=== PATIENT | female | born 1960 | race Caucasian/White ===

== ENCOUNTER 2018-06-06 16:20 | Outpatient (REF) | payer BC, SELFPAY ==
[2018-06-06 21:50] LABS: COMMENT (LAB VIEW ONLY) 25.53 mg/dL; Microalb ug/mg Crea 6.3 ug/mg Cr
== END 2018-06-06 16:40 ==
LOC: NCHCN 16:20
PROVIDERS: PCP Internal Medicine; Visit Provider Internal Medicine
DX: E11.3299 Type 2 diabetes mellitus with mild nonproliferative diabetic retinopathy without macular edema, unspecified eye (principal); E78.5 Hyperlipidemia, unspecified
CPT/HCPCS: 82043; 82570

== ENCOUNTER 2018-06-14 09:58 | Outpatient (REF) | payer BC, SELFPAY ==
[2018-06-15 11:23] LABS: Anion Gap 10.8 mmol/L (3-11); BUN 14 mg/dL (7-18); CO2 28.2 mmol/L (21.0-32.0); CREATININE 0.83 mg/dL (0.55-1.02); Chloride 104 mmol/L (98-107); Glucose 160 mg/dL (70-100); Potassium 4.1 mmol/L (3.5-5.1); Sodium 143 mmol/L (136-145)
[2018-06-15 17:23] LABS: HDL Cholesterol 51 mg/dL (40-60); LDL CHOLESTEROL 69 mg/dL (<100); Triglyceride 249 mg/dL (30-150)
[2018-06-15 17:39] LABS: Cholesterol 156 mg/dL (50-200)
== END 2018-06-14 10:18 ==
LOC: NCHCN 09:58
PROVIDERS: PCP Internal Medicine; Visit Provider Internal Medicine
DX: E11.3299 Type 2 diabetes mellitus with mild nonproliferative diabetic retinopathy without macular edema, unspecified eye (principal); E78.5 Hyperlipidemia, unspecified
CPT/HCPCS: 80048; 80061; 83721

== ENCOUNTER 2019-05-15 12:35 | Outpatient (REF) | payer BC, SELFPAY ==
[2019-05-15 22:50] LABS: COMMENT (LAB VIEW ONLY) 67.62 mg/dL; Microalb ug/mg Crea 4.4 ug/mg Cr
== END 2019-05-15 12:55 ==
LOC: NCHCN 12:35
PROVIDERS: PCP Internal Medicine; Visit Provider Internal Medicine
DX: E11.3299 Type 2 diabetes mellitus with mild nonproliferative diabetic retinopathy without macular edema, unspecified eye (principal)
CPT/HCPCS: 82043; 82570

== ENCOUNTER 2019-06-20 08:44 | Outpatient (REF) | payer BC, SELFPAY ==
[2019-06-20 23:19] LABS: ALT 33 U/L (14-59); AST 20 U/L (15-37); Albumin 3.7 g/dL (3.4-5.0); Alkaline Phosphatase 56 U/L (46-116); Anion Gap 11.3 mmol/L (3-11); BUN 13 mg/dL (7-18); Bilirubin, Total 0.5 mg/dL (0.2-1.0); CO2 27.7 mmol/L (21.0-32.0); CREATININE 0.64 mg/dL (0.55-1.02); Calcium 8.8 mg/dL (8.5-10.1); Calculated LDL 57 mg/dL (<100); Chloride 104 mmol/L (98-107); Cholesterol 146 mg/dL (<200); Glucose 140 mg/dL (74-106); HDL Cholesterol 48 mg/dL (40-60); Potassium 4.1 mmol/L (3.5-5.1); Sodium 143 mmol/L (136-145); Total Protein 6.6 g/dL (6.4-8.2); Triglyceride 207 mg/dL (<150)
== END 2019-06-20 09:04 ==
LOC: NCHCN 08:44
PROVIDERS: PCP Internal Medicine; Visit Provider Internal Medicine
DX: E78.5 Hyperlipidemia, unspecified (principal); E11.3299 Type 2 diabetes mellitus with mild nonproliferative diabetic retinopathy without macular edema, unspecified eye
CPT/HCPCS: 80053; 80061

== ENCOUNTER 2020-08-05 07:43 | Outpatient (REF) | payer BC, SELFPAY ==
[2020-08-05 14:15] LABS: BUN 13 mg/dL (7-18); CREATININE 0.7 mg/dL (0.55-1.02); Calcium 8.7 mg/dL (8.5-10.1); Calculated LDL 57 mg/dL (<100); Chloride 104 mmol/L (98-107); Cholesterol 161 mg/dL (<200); Glucose 149 mg/dL (74-106); HDL Cholesterol 46 mg/dL (40-60); Potassium 4.3 mmol/L (3.5-5.1); Sodium 142 mmol/L (136-145); Triglyceride 292 mg/dL (<150)
[2020-08-05 14:23] LABS: Hemoglobin A1C 7.6 % (<5.7)
== END 2020-08-05 07:44 | disposition home or self-care (01) ==
LOC: NCHCN 07:43
PROVIDERS: PCP Internal Medicine; Visit Provider Internal Medicine
DX: E11.3293 Type 2 diabetes mellitus with mild nonproliferative diabetic retinopathy without macular edema, bilateral (principal); E78.5 Hyperlipidemia, unspecified; I10 Essential (primary) hypertension
CPT/HCPCS: 80048; 80061; 83036

== ENCOUNTER 2020-08-14 16:37 | Outpatient (REF) | payer BC, SELFPAY ==
[2020-08-14 22:56] LABS: COMMENT (LAB VIEW ONLY) 102.38 mg/dL; Microalb ug/mg Crea 3.4 ug/mg Cr
== END 2020-08-14 16:38 | disposition home or self-care (01) ==
LOC: NCHCN 16:37
PROVIDERS: PCP Internal Medicine; Visit Provider Internal Medicine
DX: E11.3293 Type 2 diabetes mellitus with mild nonproliferative diabetic retinopathy without macular edema, bilateral (principal)
CPT/HCPCS: 82043; 82570

== ENCOUNTER 2021-06-09 13:26 | Outpatient (REF) | payer BC, SELFPAY ==
[2021-06-09 15:21] LABS: BUN 11 mg/dL (7-18); CREATININE 0.7 mg/dL (0.55-1.02); Calcium 9.1 mg/dL (8.5-10.1); Calculated LDL 64 mg/dL (<100); Chloride 102 mmol/L (98-107); Cholesterol 162 mg/dL (<200); Glucose 168 mg/dL (74-106); HDL Cholesterol 53 mg/dL (40-60); Hemoglobin A1C 6.3 % (<5.7); Sodium 139 mmol/L (136-145); Triglyceride 227 mg/dL (<150)
[2021-06-09 15:26] LABS: COMMENT (LAB VIEW ONLY) < 13.00 mg/dL
== END 2021-06-09 13:27 | disposition home or self-care (01) ==
LOC: NCHCN 13:26
PROVIDERS: PCP Internal Medicine; Visit Provider Internal Medicine
DX: I10 Essential (primary) hypertension (principal); E11.3293 Type 2 diabetes mellitus with mild nonproliferative diabetic retinopathy without macular edema, bilateral
CPT/HCPCS: 80048; 80061; 82043; 82570; 83036

== ENCOUNTER 2022-03-11 17:50 | Outpatient (REF) | payer BC, SELFPAY ==
[2022-03-11 21:46] LABS: COMMENT (LAB VIEW ONLY) 90.39 mg/dL; Microalb ug/mg Crea 4.6 ug/mg Cr
== END 2022-03-11 17:51 | disposition home or self-care (01) ==
LOC: NCHCN 17:50
PROVIDERS: PCP Internal Medicine; Visit Provider Nurse Practitioner Family
DX: E11.3293 Type 2 diabetes mellitus with mild nonproliferative diabetic retinopathy without macular edema, bilateral (principal)
CPT/HCPCS: 82043; 82570

== ENCOUNTER 2022-08-24 11:15 | Outpatient (REF) | payer BC, SELFPAY ==
[2022-08-24 14:40] LABS: Hemoglobin A1C 7.2 % (<5.7)
[2022-08-24 15:08] LABS: ALT 36 U/L (14-59); AST 19 U/L (15-37); Albumin 3.7 g/dL (3.4-5.0); Alkaline Phosphatase 57 U/L (46-116); Anion Gap 9.1 mmol/L (3-11); BUN 14 mg/dL (7-18); Bilirubin, Total 0.4 mg/dL (0.2-1.0); CO2 27.9 mmol/L (21.0-32.0); CREATININE 0.8 mg/dL (0.55-1.02); Calcium 8.8 mg/dL (8.5-10.1); Calculated LDL 69 mg/dL (<100); Chloride 105 mmol/L (98-107); Cholesterol 177 mg/dL (<200); Estimated GFR 83.78 (mL/min/1.73m2); Glucose 118 mg/dL (74-106); HDL Cholesterol 55 mg/dL (40-60); Potassium 3.7 mmol/L (3.5-5.1); Sodium 142 mmol/L (136-145); Total Protein 7.1 g/dL (6.4-8.2); Triglyceride 269 mg/dL (<150)
== END 2022-08-24 11:16 | disposition home or self-care (01) ==
LOC: NCHCN 11:15
PROVIDERS: PCP Internal Medicine; Visit Provider Internal Medicine
DX: E11.3299 Type 2 diabetes mellitus with mild nonproliferative diabetic retinopathy without macular edema, unspecified eye (principal); I10 Essential (primary) hypertension; E78.5 Hyperlipidemia, unspecified
CPT/HCPCS: 80053; 80061; 83036

== ENCOUNTER 2023-03-31 17:26 | Outpatient (REF) | payer BC, SELFPAY ==
[2023-03-31 22:12] LABS: COMMENT (LAB VIEW ONLY) 46.03 mg/dL; Microalb ug/mg Crea 5.4 ug/mg Cr
== END 2023-03-31 17:27 | disposition home or self-care (01) ==
LOC: NCHCN 17:26
PROVIDERS: PCP Internal Medicine; Visit Provider Nurse Practitioner Family
DX: E11.9 Type 2 diabetes mellitus without complications (principal)
CPT/HCPCS: 82043; 82570

== ENCOUNTER 2023-07-12 17:01 | Outpatient (REF) | payer BC, SELFPAY ==
[2023-07-12 22:12] LABS: Hemoglobin A1C 6.8 % (<5.7)
[2023-07-12 22:14] LABS: ALT 34 U/L (14-59); AST 24 U/L (15-37); Albumin 3.8 g/dL (3.4-5.0); Alkaline Phosphatase 57 U/L (46-116); Anion Gap 8.6 mmol/L (3-11); BUN 8 mg/dL (7-18); Bilirubin, Total 0.3 mg/dL (0.2-1.0); CO2 28.4 mmol/L (21.0-32.0); CREATININE 0.7 mg/dL (0.55-1.02); Calcium 10.2 mg/dL (8.5-10.1); Calculated LDL 60 mg/dL (<100); Chloride 106 mmol/L (98-107); Cholesterol 161 mg/dL (<200); Estimated GFR 97.72 (mL/min/1.73m2); Glucose 107 mg/dL (74-106); HDL Cholesterol 52 mg/dL (40-60); Potassium 4.4 mmol/L (3.5-5.1); Sodium 143 mmol/L (136-145); Total Protein 7.5 g/dL (6.4-8.2); Triglyceride 249 mg/dL (<150)
== END 2023-07-12 17:02 | disposition home or self-care (01) ==
LOC: NCHCN 17:01
PROVIDERS: PCP Internal Medicine; Visit Provider Internal Medicine
DX: E11.9 Type 2 diabetes mellitus without complications (principal); I10 Essential (primary) hypertension; E78.5 Hyperlipidemia, unspecified
CPT/HCPCS: 80053; 80061; 83036

== ENCOUNTER 2024-01-07 18:34 | Outpatient (REF) | payer BC, SELFPAY ==
--- OUTSIDE RECORDS SUMMARY | 2024-01-07 18:36 | XMS_ITS ---
Author Organization Unknown Address [address] [place] [address] [phone] Phone Care Team Providers Care Licensed Architect Name Role Phone ROSALINDA Doshi Attending Unavailable BRAULIO Delarosa Primary Unavailable Social History Type Status Start Date End Date Code Code Syst em Smoking History Never smoker (Never Smoked) 442441007 SNOMED CT Sex Female Hospital Discharge Instructions Should you have any questions prior to discharge, please contact a member of your healthcare team. If you have left the hospital and have any questions, please contact your primary care physician. Reason For Referral No Data Found Allergies and Adverse Reactions Allergy Substance Reaction Severity Start Date Concern Status Co de Code System No Known Allergies Active [id number] SNO MED-CT Plan of Treatment MM SCREEN BILAT 12/16/2023 MM SCREEN BILAT 07/02/2022 MM SCREEN BILAT 03/27/2021 Encounters Encounter Diagnosis Start Date Code Code Sys tem Atrophic vaginitis 07/16/2022 [id number] SNOMED-CT Personal Care Team Section Performer Name Performer Role Active Date Inactive Da te
--- OUTSIDE RECORDS SUMMARY | 2024-01-07 18:36 | XMS_ITS ---
Author Organization Unknown Address [address] [place] [address] [phone] Phone Care Team Providers Care Machine Engraver Name Role Phone ROSALINDA Doshi Attending Unavailable BRAULIO Delarosa Primary Unavailable Results MM SCREENING BILAT MAMMO W T ANNEL W CAD - Completed: 07/02/2022 15:25 LOINC: [facility] [place], [place] [address] PACS QUEBRACHO TANNER REPORT Patient Name: TOM DIXON MRN: Sex: : Age: [id number] F [id number] Account: Accession: Admit: StayType: [id number] 07/02/2022 O/P Ordered: Order ID: Submitted: Ordering Provider: 07/02/2022 15:04 [id number] NATY MERRILL Completed: Technologist: Resulted: 07/02/2022 15:25 BMM 07/02/2022 15:47 Study Description: MM SCREENING BILAT MAMMO W VARGAS W CAD Study Reason: Screening TECHNIQUE: 2D digital images with tomosynthesis and CAD COMPARISON: 2013 through 2020 FINDINGS: The breasts are composed of scattered fibroglandular densities, Breast Density category B. No suspicious masses or suspicious microcalcifications are seen. No skin thickening or abnormal axillary lymph nodes are seen. There has been no significant change from prior exams. IMPRESSION: BI-RADS Category 1, Negative mammogram Yearly screening mammography is recommended. Breast Density - Category B, scattered fibroglandular densities. A negative radiographic report should not delay biopsy if a dominant or clinically suspicious mass is present. Up to ten percent of cancers are not identified on mammography. A negative report may reinforce clinical impression. Adenosis and dense breasts may obscure an underlying neoplasm. False positive reports average 6 to 10%. Patient will receive a letter notifying them of these results. Report Digitally Signed by Irina Toussaint on 07/02/2022 03:47 PM EST Social History Type Status Start Date End Date Code Code Syst em Smoking History Never smoker (Never Smoked) [id number] SNOMED CT Sex Female Hospital Discharge Instructions [...] de Code System No Known Allergies Active [id number] SNO MED-CT Plan of Treatment MM SCREEN BILAT 12/16/2023 MM SCREEN BILAT 07/02/2022 MM SCREEN BILAT 03/27/2021 Encounters Encounter Diagnosis Start Date Code Code Sys tem Encounter for screening mamm ogram for malignant neoplasm of breast 07/02/2022 SNOMED-CT Personal Care Team Section Performer Name Performer Role Active Date Inactive Da te
--- OUTSIDE RECORDS SUMMARY | 2024-01-07 18:36 | XMS_ITS | Encounter Summary ---
Author Organization [facility] [place] [address] Care Team Providers Care Middle School Reading Teacher Name Role Phone Unavailable Primary Care Provider Unavailabl e Encounter Details Date Type Department Care Team (Late st Contact Info) Description 12/16/2023 Interpretation Only [facility] in [address] [phone] Valerie Ochoa MD [address] [place], [place] [phone] Social History Tobacco Use Types Packs/Day Years Used Date Smoking Tobacco: Never Assessed Sex and Gender Information Value Date Recorded Sex Assigned at Not on file Gender Identity Not on file Sexual Orientation Not on file documented as of this encounter Plan of Treatment Not on file documented as of this encounter Procedures Procedure Name Priority Date/Time Associated Diagnosis Comments MAMMO SCREENING CAD AND CONOR BILATERAL Routine 12/16/2023 11:20 AM EDT documented in this encounter Results * Mammo Screening Cad and Conor Bilateral (12/16/2023 11:20 AM EDT) PT CLASS O RAD ADMITDTTM [id number] RAD PT RAD INFO [id number]^TAYLER Y^VALERIE^R RAD EXAM DESC MADDSCTO^MM SCREENING BILAT MAMMO W CONOR W CAD^RIS RAD WORKSTATION ID [id number] RAD Anatomical Region Laterality Modality Breast Bilateral Mammography Impressions 12/20/2023 1:22 PM EDT No mammographic evidence of malignancy. Routine screening mammography is recommended. FINAL ASSESSMENT: BI-RADS Category 2: Benign * ??Regular screening mammograms starting at age 40 reduce the risk of from breast cancer. * ??Individuals should discuss the risks and benefits with their provider to determine their preferred breast cancer screening schedule, and at what age screening should stop. * ??Individuals should report any breast changes to a health care provider right away. * ??Some Individuals, because of their family history, a genetic tendency, or other factors, should consider being screened with annual breast MRI as well as with mammograms. * ??Screening mammography may not detect 10-15% of?breast cancers. Thank you for letting us participate in the care of this patient. ??If you are a health care provider and have any questions regarding this report, please contact the number below. ??For patients who have questions please contact the health direct care supervisor that requested your imaging first. ? Electronically signed by: Kelli Henry [facility] ([phone]), at 12/20/2023 1:22 PM Narrative 12/20/2023 1:22 PM EDT EXAMINATION: MM SCREENING BILAT MAMMO W CONOR ??W CAD REASON FOR EXAM: Screening TECHNIQUE: CC and MLO views were obtained of BOTH breasts. 2D and 3D tomosynthesis images were obtained. Computer aided detection was used. COMPARISON: 07/02/2022 and dating back to 11/01/2014 BREAST DENSITY: The breast tissue is heterogeneously dense, which may obscure small masses. FINDINGS: Calcified (likely) or medial cyst within the upper outer quadrant of the right breast, stable and benign in appearance. Stable parenchymal pattern without suspicious microcalcifications, discrete masses, architectural distortion or significant asymmetry. Procedure Note Kelli Henry MD - 12/20/2023 EXAMINATION: MM SCREENING BILAT MAMMO W CONOR W CAD REASON FOR EXAM: Screening TECHNIQUE: CC and MLO views were obtained of BOTH breasts. 2D and 3D tomosynthesis images were obtained. Computer aided detection was used. COMPARISON: 07/02/2022 and dating back to 11/01/2014 BREAST DENSITY: The breast tissue is heterogeneously dense, which may obscure smallmasses. FINDINGS: Calcified (likely) or medial cyst within the upper outer quadrant of theright breast, stable and benign in appearance. Stable parenchymal pattern without suspicious microcalcifications,discrete masses, architectural distortion or significant asymmetry. IMPRESSION No mammographic evidence of malignancy. Routine screening mammography is recommended. FINAL ASSESSMENT: BI-RADS Category 2: Benign * Regular screening mammograms starting at age 40 reduce the risk ofdeath from breast cancer. * Individuals should discuss the risks and benefits with their providerto determine their preferred breast cancer screening schedule, and at whatage screening should stop. * Individuals should report any breast changes to a health care providerright away. * Some Individuals, because of their family history, a genetic tendency,or other factors, should consider being screened with annual breast MRI aswell as with mammograms. * Screening mammography may not detect 10-15% of?breast cancers. Thank you for letting us participate in the care of this patient. If youare a health care provider and have any questions regarding this report,please contact the number below. For patients who have questions please contactthe health direct care supervisor that requested your imaging first. Valerie Ochoa MD IMG MAMMO ORDERABLES documented in this encounter Visit Diagnoses Not on filedocumented in this encounter
--- OUTSIDE RECORDS SUMMARY | 2024-01-07 18:36 | XMS_ITS ---
Author Organization Unknown Address [address] [place] [address] [phone] Phone Care Team Providers Care Optics Technical Officer Name Role Phone ROSALINDA Doshi Attending Unavailable BRAULIO Delarosa Primary Unavailable Results PAP THINPREP HPV REGARDLESS OF DX* - Collect Date/Time: 05/07/2021 18:08 [facility] ID: [id number] [address] [place] [address], [id number] LOINC: Test Value Unit Reference Range Code Code System Flag Report (See below) Social History Type Status Start Date End Date Code Code Syst em Smoking History Never smoker (Never Smoked) [id number] SNOMED CT Sex Female Hospital Discharge Instructions [...] de Code System No Known Allergies Active 069272609 SNO MED-CT Plan of Treatment MM SCREEN BILAT 12/16/2023 MM SCREEN BILAT 07/02/2022 MM SCREEN BILAT 03/27/2021 Encounters Encounter Diagnosis Start Date Code Code Sys tem Encounter for gynecological examination (general) (routine) without abnormal findings 05/07/2021 SNOM ED-CT Personal Care Team Section Performer Name Performer Role Active Date Inactive Da pancho
--- OUTSIDE RECORDS SUMMARY | 2024-01-07 18:36 | XMS_ITS | Clinical Summary ---
Author Organization [facility] [place] [address] Care Team Providers Care Corporate Licensed Broker Name Role Phone Unavailable Primary Care Provider Unavailabl e Encounters Date Type Department Care Team Description 12/16/2023 Interpretation Only [facility] in [address] [phone] Valerie Ochoa MD from Last 3 Months Social History Tobacco Use Types Packs/Day Years Used Date Smoking Tobacco: Never Assessed Sex and Gender Information Value Date Recorded Sex Assigned at Not on file Gender Identity Not on file Sexual Orientation Not on file Plan of Treatment Health Maintenance Due Date Last Done Comments CT Colonography 1960 Colonoscopy 1960 Colorectal Cancer Screening 1960 FIT DNA 1961 FIT 1961 Sigmoidoscopy (10 year) with FIT yearly 1961 Sigmoidoscopy 1960 HIV screen 1979 Hepatitis C Screening 1979 Tdap adult 01/22/1980 Tetanus vaccine 01/22/1980 HPV test 1991 PAP Smear 1991 Breast Cancer Share Decision Needed 2001 Zoster vaccine (1 of 2) 2011 Advance Directive 01/22/2016 Covid-19 Vaccine ( season) 2023 Influenza (Flu) vaccine (1 o f 1 - Influenza standard series) 01/16/2024 Breast Cancer screening 12/15/2025 12/16/2023 Procedures Procedure Name Priority Date/Time Associated Diagnosis Comments MAMMO SCREENING CAD AND CONOR BILATERAL Routine 12/16/2023 11:20 AM EDT from Last 3 Months Results * Mammo Screening Cad and Conor Bilateral (12/16/2023 11:20 AM EDT) PT CLASS O RAD ADMITDTTM [id number] RAD PT RAD INFO [id number]^LANDRE Y^VALERIE^R RAD EXAM DESC MADDSCTO^MM SCREENING BILAT [...] who have questions please contact the health director long term care that requested your imaging first. ? Narrative 12/20/2023 1:22 PM EDT EXAMINATION: MM [...] patients who have questions please contactthe health director long term care that requested your imaging first. Valerie Ochoa MD IMG MAMMO ORDERABLES from Last 3 Months
--- OUTSIDE RECORDS SUMMARY | 2024-01-07 18:37 | XMS_ITS ---
Author Organization Unknown Address [address] [place] [address] [phone] Phone Care Team Providers Care Respiratory Assistant Name Role Phone ALIA Coleman Attending Unavailable BRAULIO Delarosa Primary Unavailable Social History Type Status Start Date End Date Code Code Syst em Smoking History Never smoker (Never Smoked) 362724231 SNOMED CT Sex Female Hospital Discharge Instructions [...] de Code System No Known Allergies Active 009301199 SNO MED-CT Plan of Treatment MM SCREEN BILAT 12/16/2023 MM SCREEN BILAT 07/02/2022 MM SCREEN BILAT 03/27/2021 Encounters Encounter Diagnosis Start Date Code Code Sys tem Other specified cardiac arrhythmias 08/13/2022 SNOMED-CT Personal Care Team Section Performer Name Performer Role Active Date Inactive Da te
--- OUTSIDE RECORDS SUMMARY | 2024-01-07 18:37 | XMS_ITS ---
Author Organization Unknown Address [address] [place] [address] [phone] Phone Care Team Providers Care Legal Compliance Officer Name Role Phone ELÍAS DIAZ Sarina Attending Unavailable BRAULIO Delarosa Primary Unavailable Results NOVA GLUCOSE FINGER HEEL CAP ILLARY - Collect Date/Time: 07/15/2023 10:10 [facility] ID: [id number] [address] [place] [address], [phone] LOINC: 41380-6 Test Value Unit Reference Range Code Code System Flag GLUCOSE CAP 132 mg/dL L=70 H=116 63834-1 LOINC H Social History Type Status Start Date End Date Code Code Syst em Smoking History Never smoker (Never Smoked) 037128773 SNOMED CT Sex Female Hospital Discharge Instructions Should you have any questions prior to discharge, please contact a member of your healthcare team. If you have left the hospital and have any questions, please contact your primary care physician. Reason For Referral No Data Found Procedures Procedure Name Date Status Code Code Syste m Colonoscopy Flx Dx w/Collj Spec When Pfrmd 07/15/2023 comp leted 73140 CPT Allergies and Adverse Reactions Allergy Substance Reaction Severity Start Date Concern Status Co de Code System No Known Allergies Active 531587855 SNO MED-CT Plan of Treatment MM SCREEN BILAT 12/16/2023 MM SCREEN BILAT 07/02/2022 MM SCREEN BILAT 03/27/2021 Encounters Encounter Diagnosis Start Date Code Code Sys tem Encounter for screening for malignant neoplasm of colo n 07/15/2023 SNOMED-CT Personal Care Team Section Performer Name Performer Role Active Date Inactive Da te
--- OUTSIDE RECORDS SUMMARY | 2024-01-07 18:38 | XMS_ITS | Encounter Summary ---
Author Organization [facility] Address [address] [place] [address] Care Team Providers Care Cherry Grower Name Role Phone ErikaValerie mendenhall Primary Care Provider [phone] Reason for Visit * (Routine) - Receiving Office to Obtain Authorization Specialty Diagnoses / Procedures Referred By Regino orellana Referred To Contact Procedures US OUTSIDE IMAGES BODY Unknown, Provider, Referral ID Status Reason Start Date Expiration Date Visits Requested Visits Authorized [id number] Receiving Office to Obtain Authorization 08/08/2019 1 1 Encounter Details Date Type Department Care Team (Latest Contact Info) Description 07/06/2019 - 07/06/2019 23:59 EST Hospital Encounter [facility] Radiology - [facility] [place] [address] [place] [address] Discharge Disposition: Home or Self Care Social History Tobacco Use Types Packs/Day Years Used Date Smoking Tobacco: Former Smokeless Tobacco: Never Comments:[facility]oked [facility] sporadic Alcohol Use Standard Drinks/Week Comments Yes 0 (1 standard drink = 0.6 oz pur e alcohol) seldom Sex and Gender Information Value Date Recorded Sex Assigned at Not on file Gender Identity Female 07/03/2019 10:27 EST Sexual Orientation Not on file documented as of this encounter Functional Status Functional Status Response Date of Assess ment Because of a physical, menta l, or emotional condition, does this person have difficulty doing errands alone such as visiting a doctor's office or shopping? No 07/26/2017 Cognitive Status Response Date of Assessm ent Because of a physical, menta l, or emotional condition, does this person have serious difficulty concentrating, remembering, or making decisions? No 07/26/2017 documented as of this encounter Medications at Time of Discharge Medication Sig Dispensed Refills Start Date End Date ascorbic acid (VITAMIN C) 500 mg tablet Take 500 mg by mouth as needed. aspirin chewable 81 mg tablet Take 81 mg by mouth daily. atorvastatin (LIPITOR) 40 mg tablet Take 40 mg by mouth daily. blood glucose (FREESTYLE TEST) test strips 1 Strip by misc (non-drug; combo route) route daily. blood glucose meter (FREESTYLE FREEDOM LITE) by misc (non-drug; combo route) route once. cholecalciferol, Vitamin D3, (VITAMIN D3) 2,000 unit tablet Take 2,000 Units by mouth daily. DILTiazem (CARDIZEM CD) 120 mg capsule Take 120 mg by mouth daily. Reported on 07/22/2016 ECHINACEA 1X ORAL Take by mouth as needed. lisinopril (PRINIVIL, ZESTRIL) 10 mg tablet Take 10 mg by mouth daily. methocarbamol (ROBAXIN) 500 mg tablet Take 1,000 mg by mouth as needed. Multivitamins with Minerals tablet Take 1 Tab by mouth daily. sitaGLIPtin (JANUVIA) 100 mg tablet Take 100 mg by mouth daily. tocopheryl acetate (VITAMIN E) 100 unit capsule Take 400 Units by mouth daily. ZINC ACETATE ORAL Take by mouth as needed. gabapentin (NEURONTIN) 300 mg capsule Take 1 Cap by mouth at bedtime. 90 Cap 3 08/06/2017 07/27/2019 insulin glargine (LANTUS SOLOSTAR) 100 unit/mL (3 mL) injection penIndications:type 2 diabetes mellitus Inject 22 Units into the skin at bedtime. 05/03/2016 07/27/2019 metFORMIN (GLUCOPHAGE) 500 mg tablet Take 1,000 mg by mouth 2 times daily. 07/27/2019 documented as of this encounter Discharge Disposition Disposition Code Departure Means Destination Home or Self Care documented in this encounter Plan of Treatment Not on file documented as of this encounter Procedures Procedure Name Priority Date/Time Associated Diagnosis Comments US OUTSIDE IMAGES BODY Routine 08/08/2019 11:48 EDT documented in this encounter Results * US OUTSIDE IMAGES BODY (08/08/2019 11:48 EDT) Narrative [facility] - 08/08/2019 11:48 EDT This is a non-reportable exam. Physician Fa_General MD TURNERG OTHER IMAGIN G ORDERABLES [facility]IVE documented in this encounter Visit Diagnoses Not on filedocumented in this encounter Care Teams Cherry Grower Relationship Specialty Start Date End Date Valerie Ochoa [address] [place] [address] PCP - General 07/22/18 documented as of this encounter
--- OUTSIDE RECORDS SUMMARY | 2024-01-07 18:38 | XMS_ITS | Encounter Summary ---
Author Organization [facility] Address [address] [place] [address] Care Team Providers Care Community Mental Health Worker Name Role Phone Kendall De La Fuente MD Primary Care Provider Unav ailable Encounter Details Date Type Department Care Team (Latest Contact Info) Description 07/26/2017 10:20 EDT Procedure visit [facility] Endocrinology - [facility] [address] [place] [address] Bryant Ramírez MD [address] [facility] [address] [place] [address] Phlebotomy, [facility] Type 2 diabetes mellitus with hyperglycemia, with long-term current use of insulin (HCC) (Primary Dx) Discharge Disposition: Auto Discharge Social History Tobacco Use Types Packs/Day Years Used Date Smoking Tobacco: Former Smokeless Tobacco: Never Comments:smoked 2 years [place] sporadic Alcohol Use Standard Drinks/Week Comments Yes [...] No 07/26/2017 documented as of this encounter Discharge Diagnoses Diagnosis E11.65 Type 2 diabetes mellitus with hyperglycemia-E11.65[ICD-10-CM] Z79.4 oil heaterman (current) use of insulin-Z79.4[ICD-10-CM] documented in this encounter Discharge Disposition Disposition Code Departure Means Destination Auto Discharge documented in this encounter Progress Notes * Bryant Ramírez MD - 07/28/2017 1510 EDT This patient has a slightly high calculated calcium. Her calcium level was otherwise normal She has normal lipids no proteinuria and is euthyroid * Brittany Patten - 07/26/2017 1020 EDT Venipuncture preformed for Lipids prof, Albumin urine, CMP, TSH, T4 free Per orders of Odalis Ramírez Diagnosis of E11.65 250.00 I was supervised by Odalis Howell who was present and immediately available in the office suite. Brittany Patten 07/26/2017 10:31 documented in this encounter Plan of Treatment Not on file documented as of this encounter Procedures Procedure Name Priority Date/Time Associated Diagnosis Comments URINE [id number]-KFASTRBAIS RATIO (ACR) Routine 07/26/2017 10:33 EDT Type 2 diabetes mellitus with hyperglycemia, with long-term current use of insulin (HCC) TSH Routine 07/26/2017 10:33 EDT Type 2 diabetes mellitus with hyperglycemia, with long-term current use of insulin (HCC) T4 FREE Routine 07/26/2017 10:33 EDT Type 2 diabetes mellitus with hyperglycemia, with long-term current use of insulin (HCC) LIPID PROFILE (INCLUDES CHOLESTEROL, TRIGLYCERIDES, HDL, LDL) Routine 07/26/2017 10:33 EDT Type 2 diabetes mellitus with hyperglycemia, with long-term current use of insulin (HCC) COMPREHENSIVE METABOLIC PANEL (CMP) Routine 07/26/2017 10:33 EDT Type 2 diabetes mellitus with hyperglycemia, with long-term current use of insulin (HCC) documented in this encounter Results * TSH (07/26/2017 10:33 EDT) TSH 1.37 0.47 - 4.68 uIU/ml 07/26/2017 15:26 EDT [facility] Blood specimen (specimen) BLOOD SPECIMEN / Unknown 07/26/2017 10:33 EDT 07/26/2017 14:26 EDT Bryant Ramírez MD CHEMISTRY & BLOOD GAS ORDERABLES [facility] [address] [place] [address] * T4 FREE (07/26/2017 10:33 EDT) T4, Free 1.0 0.8 - 2.2 ng/dl 07/26/2017 15:13 EDT [facility] Blood specimen (specimen) BLOOD SPECIMEN / Unknown 07/26/2017 10:33 EDT 07/26/2017 14:26 EDT Bryant Ramírez MD CHEMISTRY & BLOOD GAS ORDERABLES [facility] [address] [place] [address] * (ABNORMAL) COMPREHENSIVE METABOLIC PANEL (CMP) (07/26/2017 10:33 EDT) Potassium 4.6 3.5 - 5.0 mEq/L 07/26/2017 17:58 EDT [facility] Sodium 141 136 - 145 mEq/L 07/26/2017 17:58 EDT [facility] Chloride 104 96 - 110 mEq/L 07/26/2017 17:58 EDT [facility] CO2 23 22 - 32 mEq/L 07/26/2017 17:58 EDT [facility] Total Alkaline Phosphatase 61 38 - 126 U/L 07/26/2017 17:58 [facility] Bilirubin, Total 0.5 <1.4 mg/dl 07/27/19 18 17:58 [facility] AST 28 15 - 46 U/L 07/26/2017 17:58 [facility] ALT 57(H) <53 U/L 07/26/2017 17:58 [facility] Albumin 4.6 3.4 - 4.9 g/dl 07/26/2017 17:58 [facility] Total Protein 7.7 6.3 - 8.2 g/dl 07/26/2017 17:58 [facility] Creatinine 0.63 0.52 - 1.04 mg/dl 07/26/2017 17:58 [facility] GFR, Calculated 101 >60 ml/min/1.7 3m2 07/26/2017 17:58 [facility] Comment: eGFR calculated using CKD-EPI equation for non Americans. Multiply eGFR by 1.16 for Americans. BUN 13 10 - 26 mg/dl 07/26/2017 17:58 [facility] Calcium 10.6(H) 8.5 - 10.5 mg/dl 07/26/2017 17:58 [facility] Calculated Calcium 10.1 8.5 - 10.5 mg/dl 07/26/2017 17:58 [facility] Glucose, Serum 139(H) 70 - 100 mg/dl 07/26/2017 17:58 [facility] Fasting? Unknown 07/26/2017 14:27 [facility] Blood specimen (specimen) BLOOD SPECIMEN / Unknown 07/26/2017 10:33 EDT 07/26/2017 14:26 EDT Bryant Ramírez MD CHEMISTRY & BLOOD GAS ORDERABLES [facility] [address] [place] [address] * ALBUMIN, URINE (07/26/2017 10:33 EDT) Creatinine, Urn [place] 59.5 mg/dl 07/27/2017 10:15 T [facility] Ur Albumin mg/dl 0.3 mg/dl 07/27/2017 13:52 [facility] Ur Alb ug/mg Crea 5.0 ug/mg Crea 07/27/2017 13:52 [facility] Comment: Normal: <30 ug/mg creat High albuminuria: 30-300 ug/mg creat Very high albuminuria: >300 ug/mg creat Urine specimen (specimen) URINE / Unknown 07/26/2017 10:33 EDT 07/26/2017 14:27 EDT Bryant Ramírez MD CHEMISTRY & BLOOD GAS ORDERABLES [facility] [address] [place] [id number] * LIPID PROFILE (INCLUDES CHOLESTEROL, TRIGLYCERIDES, HDL, LDL) (07/26/2017 10:33 EDT) Cholesterol 167 mg/dl 07/26/2017 17:58 [facility] Comment: Desirable:<200 Borderline High:200-239 High:>gm=161 Triglycerides 287 mg/dl 07/26/2017 17:58 [facility] Comment: Normal:<150 Borderline High:150-199 High:200-499 Very High:>gg=088 HDL 58 mg/dl 07/26/2017 17:58 [facility] Comment: Low:<40 Normal:40-60 Desirable: >60 LDL, Calculated 52 mg/dl 8 17:58 [facility] Comment: Optimal:<100 Near Optimal:100-129 Borderline High:130-159 High:160-189 Very High:>cp=229 Chol/HDL Ratio 2.9 07/26/2017 17:58 [facility] Fasting? Unknown 07/26/2017 14:27 [facility] Non HDL Cholesterol 109 mg/dl 07/26/2017 17:58 [facility] Comment: Desirable:<130 Borderline:130-159 High: 160-189 Very High: >gu=157 Blood specimen (specimen) BLOOD SPECIMEN / Unknown 07/26/2017 10:33 EDT 07/26/2017 14:26 EDT Bryant Ramírez MD CHEMISTRY & BLOOD GAS ORDERABLES [facility] [address] [place] [address] documented in this encounter Visit Diagnoses Diagnosis Type 2 diabetes mellitus with hyperglycemia, with long-term current use of insulin (HCC)- Primary documented in this encounter Care Teams Community Mental Health Worker Relationship Specialty Start Date End Date Kendall De La Fuente MD PCP - General 03/29/13 07/21/18 documented as of this encounter
--- OUTSIDE RECORDS SUMMARY | 2024-01-07 18:38 | XMS_ITS | Encounter Summary ---
Author Organization [facility] Address [address] [place] [address] Care Team Providers Care Ring Sewer Name Role Phone Valerie Ochoa Primary Care Provider [phone] Reason for Visit * Reason Comments Diabetes Encounter Details Date Type Department Care Team (Latest Contact Info) Description 07/25/2018 10:00 EDT Office Visit [facility] Endocrinology - [facility] [address] [place] [address] Bryant Ramírez MD [address] [facility] [address] [place] [address] Type 2 diabetes mellitus with hyperglycemia, with long-term current use of insulin ([facility]) (Primary Dx); Mixed dyslipidemia; Essential hypertension, benign; Type 2 diabetes mellitus with diabetic neuropathy, with long-term current use of insulin ([facility]) Social History Tobacco Use Types Packs/Day Years [...] on file documented as of this encounter Last Filed Vital Signs Vital Sign Reading Time Taken Comments Blood Pressure 148/78 07/25/2018 0958 EDT Pulse 107 07/25/2018 0958 EDT Temperature - - Respiratory Rate - - Oxygen Saturation - - Inhaled Oxygen Concentration - - Weight 77.1 kg (170 lb) 07/25/2018 0958 EDT Height 170.2 cm (5' 7.01) 07/25/2018 0958 EDT Body Mass Index 26.62 07/25/2018 0958 EDT documented in this encounter Functional Status Functional Status Response [...] No 07/26/2017 documented as of this encounter Patient Instructions * Patient Instructions* Bryant Ramírez MD - 07/25/2018 10:00 EDT Check Blood Sugar: Before breakfast and two hours after a meal. 22 units lantus + januvia 100 mgm + metformin ER 500 - 2 twice daily ?? gabapentin 300 mgm - try 2 daily ?? documented in this encounter Progress Notes * Tony Carpio - 07/25/2018 1000 EDT Fingerstick blood sample obtained for POCT Hemoglobin A1C performed for this DOS at the order of Bryant Ramírez MD * Bryant Ramírez MD - 07/25/2018 1000 EDT Images from the original note were not included. [facility] Diabetes Follow-Up Note CHIEF COMPLAINT: Glendy Lechuga presents in clinic today with: 1. Type 2 diabetes mellitus with hyperglycemia, with long-term current use of insulin ([facility]) 2. Mixed dyslipidemia 3. Essential hypertension, benign 4. 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 As can be seen below she is improving on basal insulin but her morning blood sugars are not quite at target at this point and it is unclear whether or not she has postprandial excursions which have to be addressed. 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 Onset time: dx'ed 1999 ? Family history is reviewed and includes the following: diabetes, dyslipidemia and father had hyper trig .and CAD Although this patient has had diabetes since the year 1999 her BMI currently is 25 and even if she was 25 pounds heavier than she is now she still is rather lean at the time of diagnosis. And in viewof the fact that she is on rather low dose of insulin There still may be a chance that she really has type 1 diabetes ?? ALYSIA antibody Ref Range & Units 1yr ago Glutamic Acid Decarboxylase Antibody Assay <=0.02 nmol/L 22 units lantus + januvia 100 mgm + metformin ER 500 - 2 twice daily ?? gabapentin 300 mgm ?? Diabetes She presents for her follow-up diabetic visit. She has type 2 diabetes mellitus. Onset time: dx'ed 2000. Her disease course has been fluctuating. Associated symptoms include foot paresthesias and nocturia. Pertinent negatives for diabetes include no blurred vision, no chest pain, no fatigue, no foot ulcerations, no polydipsia, no polyphagia, no polyuria, no visual change, no weakness and no weight loss. There are no hypoglycemic complications. Risk factors for coronary artery disease include family history, dyslipidemia, obesity and hypertension. She is compliant with treatment most of the time. She has had a previous visit with a dietitian. She participates in exercise daily. (Am avg 137) An PITER inhibitor/angiotensin II receptor lizzie is being taken. She does not see a president of the [place].Eye exam is not current. Glendy Lechuga recently has a history of being in fair glycemic control. Patient's home regimen consists of has a current medication list which includes the following prescription(s): ascorbic acid (vitamin c), aspirin chewable, atorvastatin, blood glucose, blood glucose meter, cholecalciferol (vitamin d3), diltiazem, echinacea, gabapentin, insulin glargine, lisinopril,metformin, methocarbamol, multivitamins with minerals, sitagliptin, tocopheryl acetate, and zinc acetate. The patient has experienced the following acute complications: none. Social History Tobacco Use ??? Smoking status: Former Smoker ??? Smokeless tobacco: Never Used ??? Tobacco comment: smoked 2 years in college sporadic Substance Use Topics ??? Alcohol use: Yes Comment: seldom PHYSICAL EXAMINATION: Vitals: BP (!) 148/78 Pulse (!) 107 Ht 170.2 cm (67.01) Wt 77.1 kg (170 lb) BMI 26.62 kg/m?? BMI: Body mass index is 26.62 kg/m??. Physical Exam Funduscopic: no microaneurysms, exudates, hemorrhages or kye-vascularizations Skin: normal Feet: Good hygiene of the nails with no hypertrophy or onychomycosis. There are no osseous deformities or open lesions. Vibratory sense is intact. No pedal edema. Dorsalis pedis pulses and tibial pulses are felt. Monofilament Testing: Left foot: 5, Right foot: 5. Post Tibial and Dorsalis Pedis: normal LABS: Lab Results Component Value Date HGBA1C 7.4 (H) 07/25/2018 HGBA1C 7.7 (H) 07/26/2017 HGBA1C 7.7 (H) 07/22/2016 Lab Results Component Value Date CHOL 167 07/26/2017 HDL 58 07/26/2017 LDLBASE 52 07/26/2017 TRIG 287 07/26/2017 CHOLHDL 2.9 07/26/2017 Lab Results Component Value Date BUN 13 07/26/2017 CREATININE 0.63 07/26/2017 NA 141 07/26/2017 K 4.6 07/26/2017 Lab Results Component Value Date ALT 57 (H) 07/26/2017 Lab Results Component Value Date LABALBU 4.6 07/26/2017 UCREA 59.5 07/26/2017 MICRALBCRRAT 5.0 07/26/2017 Tania 06/14/18 TChol 156 LDL 69 HDL 51 Trig 249 Cr 0.83 GFR >60 ASSESSMENT/PLAN: 1. Type 2 diabetes mellitus with hyperglycemia, with long-term current use of insulin ([facility]) 2. Mixed dyslipidemia 3. Essential hypertension, benign 4. Type 2 diabetes mellitus with diabetic neuropathy, with long-term current use of insulin ([facility]) once again we discussed the fact these had diabetes since year 1999. At this point is unclear whether or not she has adequate beta cell function with a hemoglobin A1c is 7.4% it appears that she probably does. However it looks like the DPP 4 inhibitor plus metformin with a basal insulin is not quite working. With average blood sugar in the morning of 137 mg/dL I am little hesitant to increase her basal insulin. I have asked her to look closer at her postprandial glucoses and to see if we have to make another change by the time of her next visit Because of continuing discomfort in her feet I have increased her gabapentin to 600 mg at at bedtime for 2-week trial if this occurs I will refill her prescription at a higher dose She has an appointment with her primary care physician fairly soon and therefore I repeated all herlabs and I will include them here and. I will also get a hemoglobin A1c 6-8 weeks to see if we haveto make a change in her regimen at that point Since her major complaint now is her painful neuropathy have increase in gabapentin to 300 mg each night Attached please find my consult note with the full details of your patents' visit. Medications: Recommend aspirin daily. Insulin: Insulin stabilization is required: Check Blood Sugar: Before breakfast and two hours after a meal. 22 units lantus + januvia 100 mgm + metformin ER 500 - 2 twice daily ?? gabapentin 300 mgm - try 2 daily Non-insulin: diet. Recommended: Already on an PITER inhibitor and a statin. Glucose monitoring BID. Referred to diabetic education program. Referred to business process associate no. Patient referred to eye spiritual care coordinator for annual dilated eye exam. Lifestyle modifications: recommend losing weight, recommend exercise and recommend compliance with a diabetic diet Patient does demonstrate knowledge of diabetes and expectations. Patient does understand medication regimen. Barriers to adherence: No Barriers. Goals and plan to achieve these discussed. Systolic blood pressure less than 140. And diastolic blood pressure less than 80. Hemoglobin A1C less than 7%. LDL cholesterol: 70 to 99. HDL males >40 and females >50 mgm/dl Triglycerides fasting <150 mgm/dl *More or less stringent glycemic goals may be appropriate for individual patients. Goals should be individualized based on: ??? duration of diabetes ??? age/life expectancy ??? comorbid conditions ??? known CVD or advanced microvascular complications ??? hypoglycemia unawareness ??? individual patient considerations Based on patient characteristics and response to therapy, lower SBP targets may be appropriate. * In individuals with overt CVD, a lower LDL-C goal of <70 mg/dl (1.8 mmol/l), using a high dose of a statin, is an option. Bryant Ramírez MD 07/25/2018 10:36 documented in this encounter Plan of Treatment Not on file documented as of this encounter Procedures Procedure Name Priority Date/Time Associated Diagnosis Comments POCT HEMOGLOBIN A1C, INTERFACED Routine 07/25/2018 9:57 EDT Type 2 diabetes mellitus with hyperglycemia, with long-term current use of insulin (HCC) documented in this encounter Results * (ABNORMAL) POCT HEMOGLOBIN A1C (07/25/2018 9:57 EDT) Hemoglobin A1C, POC Interfaced 7.4(H) <5.7 % 07/25/2018 10:17 EDT [facility] prison psychiatrist ID [id number] 07/25/2018 10:17 EDT [facility] Comment: For Hgb A1c values =>10%, a venous blood measurement in the main laboratory for confirmation is available. Reference Range: <5.7% Normal 5.7-6.4% Prediabetes =>6.5% Diagnostic for diabetes (if confirmed) Goals for glycemic control in diabetes ADA 2017 For non adults with diabetes: ?? Target <7.0% For children and adolescents with type 1 diabetes: ?? Target <7.5% More or less stringent targets may be appropriate for individual patients. Test performed at Endocrinology Blood specimen (specimen) BLOOD SPECIMEN / Unknown 07/25/2018 9:57 EDT 07/25/2018 10:17 EDT Bryant Ramírez MD POINT OF CARE TEST ORDERABLES [facility] [address] [place] [address] documented in this encounter Visit Diagnoses Diagnosis Type 2 diabetes mellitus with hyperglycemia, with long-term current use of insulin ([facility])- Primary Mixed dyslipidemia Mixed hyperlipidemia Essential hypertension, benign Type 2 diabetes mellitus with diabetic neuropathy, with long-term current use of insulin ([facility]) documented in this encounter Historical Medications * This list may reflect changes made after this encounter. Medication Sig Dispensed Refills Start Date End Date cholecalciferol, Vitamin D3, (VITAMIN D3) 2,000 unit tablet Take 2,000 Units by mouth daily. added in this encounter Care Teams Ring Sewer Relationship Specialty Start Date End Date Valerie Ochoa [address] [place] [address] PCP - General 07/22/18 documented as of this encounter
--- OUTSIDE RECORDS SUMMARY | 2024-01-07 18:38 | XMS_ITS | Clinical Summary ---
Author Organization [facility] Address [address] [place] [address] Care Team Providers Care Head Of Integrated Media Name Role Phone Valerie Ochoa Primary Care Provider [phone] Allergies No known active allergies Medications Medication Sig Dispensed Refills Start Date End Date Status DILTiazem (CARDIZEM CD) 120 mg capsule Take 120 mg by mouth daily. Reported on 07/22/2016 Active aspirin chewable 81 mg tablet Take 81 mg by mouth daily. Active Multivitamins with Minerals tablet Take 1 Tab by mouth daily. Active ECHINACEA 1X ORAL Take by mouth as needed. Active ZINC ACETATE ORAL Take by mouth as needed. Active ascorbic acid (VITAMIN C) 500 mg tablet Take 500 mg by mouth as needed. Active tocopheryl acetate (VITAMIN E) 100 unit capsule Take 400 Units by mouth daily. Active atorvastatin (LIPITOR) 40 mg tablet Take 40 mg by mouth daily. Active lisinopril (PRINIVIL, ZESTRIL) 10 mg tablet Take 10 mg by mouth daily. Active blood glucose meter (FREESTYLE FREEDOM LITE) by [facility] (non-drug; combo route) route once. Active blood glucose (FREESTYLE TEST) test strips 1 Strip by misc (non-drug; combo route) route daily. Active sitaGLIPtin (JANUVIA) 100 mg tablet Take 100 mg by mouth daily. Active methocarbamol (ROBAXIN) 500 mg tablet Take 1,000 mg by mouth as needed. Active cholecalciferol, Vitamin D3, (VITAMIN D3) 2,000 unit tablet Take 2,000 Units by mouth daily. Active metFORMIN (GLUCOPHAGE-XR) 500 mg ER tablet Take 2 Tabs by mouth 2 times daily. 360 Tab 06/26/2020 Active insulin glargine (LANTUS SOLOSTAR U-100 INSULIN) 100 unit/mL (3 mL) injection penIndications:type 2 diabetes mellitus Inject 24 Units into the skin at bedtime. 30 mL 06/26/2020 Active gabapentin (NEURONTIN) 300 mg capsule Take 1 capsule by mouth 2 times daily. 600 mgm at hs 200 capsule 3 12/16/2020 Active Active Problems Problem Noted Date Diagnosed Date Type 2 diabetes mellitus with hyperglycemia ([facility]) 07/22/2016 Palpitations 03/30/2013 Supraventricular tachycardia ([facility]) 3 Diabetes mellitus ([facility]) 02/01/2013 Surgical History Surgery Date Site/Laterality Comments SECTION ABLATION OF DYSRHYTHMIC FOCUS Medical History Medical History Date Comments SVT (supraventricular tachycardia) ([facility]) Diabetes mellitus ([facility]) Hypercholesteremia Hypertension Family History Medical History Relation Comments High Blood Pressure Father High Cholesterol Maternal Aunt Diabetes Mother Relation Status Comments Brother Father Maternal Aunt Mother Social History Tobacco Use Types Packs/Day Years Used Date Smoking Tobacco: Former Smokeless Tobacco: Never Comments:smoked 2 years in [employer] sporadic Alcohol Use Standard Drinks/Week Comments Yes 0 (1 standard drink = 0.6 oz pur e alcohol) seldom Interpersonal Safety Answer Date Record ed Physically Hurt Never 12/17/2019 Verbally Threaten Not on file 12/17/2019 Sex and Gender Information Value Date Recorded Sex Assigned at Not on file Gender Identity Female 07/03/2019 10:27 EST Sexual Orientation Not on file Obstetrics History Last Filed Vital Signs Vital Sign Reading Time Taken Comments Blood Pressure 155/74 07/27/2019 1103 EDT Pulse 104 07/27/2019 1103 EDT Temperature 35.9 ??C (96.6 ??F) 03/30/2013 1218 EST Respiratory Rate 20 03/30/2013 1503 EST Oxygen Saturation 100% 03/30/2013 1503 EST Inhaled Oxygen Concentration - - Weight 74.4 kg (164 lb) 07/27/2019 1103 EDT Height 170.2 cm (5' 7.01) 07/27/2019 1103 EDT Body Mass Index 25.68 07/27/2019 1103 EDT Plan of Treatment Health Maintenance Due Date Last Done Comments Hepatitis C Screen 1960 RSV Immunization ( o r 60+ Years) (1 - 1-dose 60+ series) 2021 COVID-19 Vaccine (2022-24 season) 2023 Care Teams Head Of Integrated Media Relationship Specialty Start Date End Date Valerie Ochoa [address] [place] [address] PCP - General 07/22/18
--- OUTSIDE RECORDS SUMMARY | 2024-01-07 18:38 | XMS_ITS | Encounter Summary ---
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 [employer] Name Role Phone Valerie Ochoa Primary Care Provider [phone] Reason for Visit * Reason Onset Date Comments Medications Refill 06/24/2020 Medications Refill 07/03/2020 Encounter Details Date Type Department Care Team (Late st Contact Info) Description 06/24/2020 Telephone [facility] Endocrinology - [facility] [address] [place] [address] Bryant Ramírez MD [address] [place] [address] Medications Refill; Medications Refill Social History Tobacco Use Types Packs/Day Years [...] No 07/26/2017 documented as of this encounter Ordered Prescriptions Prescription Sig Dispensed Refills Start Date End Da te insulin glargine (LANTUS SOLOSTAR U-100 INSULIN) 100 unit/mL (3 mL) injection penIndications:type 2 diabetes mellitus Inject 24 Units into the skin at bedtime. 30 mL 06/26/2020 metFORMIN (GLUCOPHAGE-XR) 500 mg ER tablet Take 2 Tabs by mouth 2 times daily. 360 Tab 06/26/2020 documented in this encounter Miscellaneous Notes * Telephone Encounter - Marixa Begum - 07/03/2020 1559 EST Patient will call to schedule telemed appt, states ok for meds at this point, but aware needs appt for refills * Telephone Encounter - Jaylene Martinez - 07/01/2020 1538 EST LMOM for patient to schedule zoom apt with Dr. Ramírez. Advised no refills on RX and will need an appointment scheduled. * Telephone Encounter - Hunter Ely, RN - 06/26/2020 1339 EST Per last progress note on 07/27/2019 : 24 lantus every night Metformin ER 500 mgm 2 twice daily Return in about 1 year (around 07/26/2020). HUNTER JACOBO RN 06/26/2020 13:40 * Telephone Encounter - Amada Haque - 06/24/2020 1158 EST Reason for Call: Medications Refill Pt will be picking up last refill for Lantus and Metformin. Amada Haque 06/24/2020 12:02 documented in this encounter Plan of Treatment Not on file documented as of this encounter Visit Diagnoses Not on filedocumented in this encounter Discontinued Medications Medication Sig Discontinue Reason Start Date End Da te metFORMIN (GLUCOPHAGE-XR) 500 mg ER tablet 2 tabs BID Reorder 07/27/2019 06/24/2020 insulin glargine (LANTUS SOLOSTAR U-100 INSULIN) 100 unit/mL (3 mL) injection penIndications:type 2 diabetes mellitus Inject 24 Units into the skin at bedtime. Reorder 07/27/2019 06/24/2020 documented as of this encounter Care Teams Laborer [employer] Relationship Specialty Start Date End Date Valerie Ochoa [address] [place] [address] PCP - General 07/22/18 documented as of this encounter
--- OUTSIDE RECORDS SUMMARY | 2024-01-07 18:38 | XMS_ITS | Encounter Summary ---
Author Organization [facility] Address [address] [place] [address] Care Team Providers Care Auto Service Advisor Name Role Phone Kendall De La Fuente MD Primary Care Provider Unav ailable Reason for Visit * Reason Comments Diabetes Encounter Details Date Type Department Care Team (Latest Contact Info) Description 07/22/2016 10:30 EST Office Visit [facility] Endocrinology - [facility] [address], [place] [id number] Bryant Ramírez MD [address] [place] [address] Type 2 diabetes mellitus with hyperglycemia, unspecified eligibility manager insulin use status ([facility]) (Primary Dx); Type 2 diabetes mellitus with diabetic neuropathy, unspecified eligibility manager insulin use status ([facility]) Discharge Disposition: Auto Discharge Social History Tobacco Use Types Packs/Day Years Used Date Smoking Tobacco: Former Smokeless Tobacco: Never Comments:smoked 2 years in [facility] sporadic Alcohol Use Standard Drinks/Week Comments Yes 0 (1 standard drink = 0.6 oz pur e alcohol) seldom Sex and Gender Information Value Date Recorded Sex Assigned at Not on file Gender Identity Female 07/03/2019 10:27 EST Sexual Orientation Not on file documented as of this encounter Last Filed Vital Signs Vital Sign Reading Time Taken Comments Blood Pressure 123/72 07/22/2016 1104 EST Pulse 102 07/22/2016 1104 EST Temperature - - Respiratory Rate - - Oxygen Saturation - - Inhaled Oxygen Concentration - - Weight 73 kg (161 lb) 07/22/2016 1104 EST Height 170.2 cm (5' 7.01) 07/22/2016 1104 EST Body Mass Index 25.21 07/22/2016 1104 EST documented in this encounter Functional Status Functional Status Response Date of Assess ment Because of a physical, menta l, or emotional condition, does this person have difficulty doing errands alone such as visiting a doctor's office or shopping? No 07/22/2016 Cognitive Status Response Date of Assessm ent Because of a physical, menta l, or emotional condition, does this person have serious difficulty concentrating, remembering, or making decisions? No 07/22/2016 documented as of this encounter Discharge Diagnoses Diagnosis E11.65 Type 2 diabetes mellitus with hyperglycemia-E11.65[ICD-10-CM] E11.40 Type 2 diabetes mellitus with diabetic neuropathy, unspecified-E11.40[ICD-10-CM] documented in this encounter Patient Instructions * Patient Instructions* Bryant Ramírez MD - 07/22/2016 10:30 EST Check Blood Sugar: Before breakfast and two hours after a meal. Increase to 14 units lantus Add gabapentin 100 mgm Call BS to office in 1 week [phone] documented in this encounter Ordered Prescriptions Prescription Sig Dispensed Refills Start Date End Da te gabapentin (NEURONTIN) 100 mg capsule Take 1 Cap by mouth at bedtime. 30 Cap 11 07/22/2016 07/22/2017 documented in this encounter Discharge Disposition Disposition Code Departure Means Destination Auto Discharge documented in this encounter Progress Notes * Magda Kwok - 07/22/2016 1030 EST Fingerstick blood sample obtained for POCT Hemoglobin A1C performed for this DOS at the order of Bryant Ramírez MD - didn't perform a1c patient just had done at dr. john office and was 7.7 Fingerstick blood sample obtained for POCT Hemoglobin A1C performed for this DOS at the order of Bryant Ramírez MD * Bryant Ramírez MD - 07/22/2016 1030 EST [facility] Diabetes Initial Evaluation Note CHIEF COMPLAINT: Glendy Lechuga presents with 1. Type 2 diabetes mellitus with hyperglycemia, unspecified usp insulin use status 2. Type 2 diabetes mellitus with diabetic neuropathy, unspecified usp insulin use status HPI: Glendy is a rather interesting 56 y.o. 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 She has type 2 diabetes mellitus. Onset time: dx'ed 1999 with oha insulin started insum in APR. Her disease course has been worsening. There are no hypoglycemic associated symptoms. Associated symptoms include foot paresthesias and nocturia. Pertinent negatives for diabetes include no blurred vision, no chest pain, no fatigue, no foot ulcerations, no polydipsia, no polyphagia, no polyuria, no visual change, no weakness and no weight loss. Diabetic complications include nephropathy and peripheral neuropathy. Pertinent negatives for diabetic complications include no CVA, heart disease (had ablation for an arrhythmia), PVD or retinopathy. Family history is reviewed and includes the following: diabetes, dyslipidemia and father had hyper trig . Glendy Lechuga has a history of being in poor but improving glycemic control. Patient has a history of being compliant all of the time with medical therapy. Patient's home regimen consists of has a current medication list which includes the following prescription(s): ascorbic acid (vitamin c), aspirin chewable, atorvastatin, blood glucose, blood glucose meter, diltiazem, echinacea, gabapentin, insulin glargine, lisinopril, metformin, multivitamins withminerals, tocopheryl acetate, and zinc acetate. Prior treatment for diabetes: medications: Metformin then a Januvia added and most recently insulinadded. Patient's last HgbA1C was 8.7. 8.3, 8.1 and most recently 7.7% The patient has experienced the following acute complications: none. Social History Substance Use Topics ??? Smoking status: Former Smoker ??? Smokeless tobacco: Never Used Comment: smoked 2 years in college sporadic ??? Alcohol use Yes Comment: seldom Children 1, heaviest 8-2 Psychosocial, cultural, or economic factors that might influence management of diabetes include: none. REVIEW OF SYSTEMS: A ten point review of systems was performed. Pertinent positives are listed below, all others are negative: Except as described in the history of the present illness and reviewed elsewhere in the electronic medical record the systemic review is otherwise negative Eye: none. Neurologic: peripheral numbness and peripheral tingling. Kidney: none. PVD: none. Skin: none. Cardiac: none. PHYSICAL EXAMINATION: Vitals: Visit Vitals ??? BP 123/72 ??? Pulse 102 ??? Ht 170.2 cm (67.01) ??? Wt 73 kg (161 lb) ??? BMI 25.21 kg/m2 BMI: Body mass index is 25.21 kg/(m^2). Physical Exam General appearance - alert, well appearing, and in no distress and oriented to person, place, and time Mental status - alert, oriented to person, place, and time, normal mood, behavior, speech, dress, motor activity, and thought processes Eyes - pupils equal and reactive, extraocular eye movements intact, sclera anicteric, funduscopic exam normal, discs flat and sharp Neck - supple, no significant adenopathy, carotids upstroke normal bilaterally, no bruits, thyroid exam: thyroid is normal in size without nodules or tenderness Chest - clear to auscultation, no wheezes, rales or rhonchi, symmetric air entry Heart - normal rate, regular rhythm, normal S1, S2, no murmurs, rubs, clicks or gallops Abdomen - soft, nontender, nondistended, no masses or organomegaly Neurological - alert, oriented, normal speech, no focal findings or movement disorder noted, cranial nerves II through XII intact, DTR's normal and symmetric, motor and sensory grossly normal bilaterally Musculoskeletal - no joint tenderness, deformity or swelling Extremities - peripheral pulses normal, no pedal edema, no clubbing or cyanosis Skin - normal coloration and turgor, no rashes, no suspicious skin lesions noted Funduscopic: no microaneurysms, exudates, hemorrhages or kye-vascularizations I see no exudates today in a non-dilated eye exam Feet: Good hygiene of the nails with no hypertrophy or onychomycosis. There are no osseous deformities or open lesions. Vibratory sense is intact. No pedal edema. Dorsalis pedis pulses and tibial pulses are felt. Monofilament Testing: Left foot: 5, Right foot: 5. LABS: Lab Results Component Value Date HGBA1C 7.7 (H) 07/22/2016 Lab Results Component Value Date CHOL 187 07/22/2016 HDL 55 07/22/2016 LDLBASE 71 07/22/2016 TRIG 307 07/22/2016 CHOLHDL 3.4 07/22/2016 Lab Results Component Value Date BUN 12 07/22/2016 CREATININE 0.63 07/22/2016 NA 141 07/22/2016 K 4.5 07/22/2016 Lab Results Component Value Date ALT 45 07/22/2016 Lab Results Component Value Date LABALBU 4.7 07/22/2016 ASSESSMENT/PLAN: 1. Type 2 diabetes mellitus with hyperglycemia, unspecified eligibility manager insulin use status 2. Type 2 diabetes mellitus with diabetic neuropathy, unspecified eligibility manager insulin use status Although this patient has had diabetes since [...] that she really has type 1 diabetes which I will evaluate today Her glycemic control is improving but she is not quite at target with a fasting blood sugar so there is a small room for improvement based on the dosage of her basal insulin. She already is on metformin and DPP 4 inhibitor and if we can solidify improvement in her fasting blood sugar she may be able to do very well on dual oral therapy and just basal insulin rather than basal bolus insulins Most of the time we do have adequate means of treating some painful neuropathies however this is a distressing symptom for her and therefore I prescribed a very small dose of gabapentin. I described the side effects which we want to avoid I sent him to the lab today to recheck her renal function and her lipids as well as a urinary protein and thyroid function as well as a ALYSIA antibody Attached please find my consult note with the full details of your patents' visit. Medications: Recommend aspirin daily. Insulin: Insulin stabilization is required: Check Blood Sugar: Before breakfast and two hours after a meal. Increase to 14 units lantus Add gabapentin 100 mgm Non-insulin: diet. Recommended: She is already on antihypertensives and atorvastatin. Glucose monitoring BID. Referred to diabetic education program. Referred to equities trader no. Patient referred to eye morning caregiver for annual dilated eye exam. Lifestyle modifications: [...] statin, is an option. Bryant Ramírez MD 07/22/2016 14:51 documented in this encounter Plan of Treatment Not on file documented as of this encounter Procedures Procedure Name Priority Date/Time Associated Diagnosis Comments POCT HEMOGLOBIN A1C, INTERFACED Routine 07/22/2016 11:40 EST Type 2 diabetes mellitus with hyperglycemia, unspecified usp insulin use status ([facility]) documented in this encounter Results * TSH (07/22/2016 12:07 EST) TSH 1.50 0.55 - 4.78 uIU/ml 07/22/2016 16:52 [facility] Blood specimen (specimen) BLOOD SPECIMEN / Unknown 07/22/2016 12:07 EST 07/22/2016 14:02 EST Bryant Ramírez MD CHEMISTRY & BLOOD GAS ORDERABLES Performing Organization Address [facility] Co de Phone Number [facility] [address] [place] [address] * T4 FREE (07/22/2016 12:07 EST) Free T4 1.3 0.8 - 1.8 ng/dl 07/22/2016 16:52 [facility] Blood specimen (specimen) BLOOD SPECIMEN / Unknown 07/22/2016 12:07 EST 07/22/2016 14:02 EST Bryant Ramírez MD CHEMISTRY & BLOOD GAS ORDERABLES Performing Organization Address [facility] de Phone Number [facility] [address] [place] [address] * LIPID PROFILE (INCLUDES CHOLESTEROL, TRIGLYCERIDES, HDL, LDL) (07/22/2016 12:07 EST) Cholesterol 187 mg/dl 07/22/2016 14:38 [facility] Comment: Desirable:<200 Borderline High:200-239 High:>jw=992 Triglycerides 307 mg/dl 07/22/2016 14:38 [facility] Comment: Normal:<150 Borderline High:150-199 High:200-499 Very High:>tn=443 HDL 55 mg/dl 07/22/2016 14:38 [facility] Comment: Low:<40 Normal:40-60 Desirable: >60 LDL, Calculated 71 mg/dl 7 14:38 [facility] Comment: Optimal:<100 Near Optimal:100-129 Borderline High:130-159 High:160-189 Very High:>dy=072 Chol/HDL Ratio 3.4 07/22/2016 14:38 [facility] Fasting? No 07/22/2016 12:07 [facility] Non HDL Cholesterol 132 mg/dl 07/22/2016 14:38 [facility] Comment: Desirable:<130 Borderline:130-159 High: 160-189 Very High: >yi=536 Blood specimen (specimen) BLOOD SPECIMEN / Unknown 07/22/2016 12:07 EST 07/22/2016 14:02 EST Bryant Ramírez MD CHEMISTRY & BLOOD GAS ORDERABLES Performing Organization Address [facility] de Phone Number [facility] [address] [place] [address] * ALBUMIN, URINE (07/22/2016 12:07 EST) Creatinine, Urn [place] 77.2 mg/dl 07/23/2016 10:04 [facility] Ur Albumin mg/dl 1.0 mg/dl 07/23/2016 13:18 [facility] Ur Alb ug/mg Crea 13.0 ug/mg Crea 07/23/2016 13:18 [facility] Comment: Normal: <30 ug/mg creat High albuminuria: 30-300 ug/mg creat Very high albuminuria: >300 ug/mg creat Urine specimen (specimen) URINE / Unknown 07/22/2016 12:07 EST 07/22/2016 13:55 EST Bryant Ramírez MD CHEMISTRY & BLOOD GAS ORDERABLES Performing Organization Address [facility] de Phone Number [facility] [address] [place] [address] * (ABNORMAL) COMPREHENSIVE METABOLIC PANEL (CMP) (07/22/2016 12:07 EST) Potassium 4.5 3.5 - 5.0 mEq/L 07/22/2016 14:46 [facility] Sodium 141 136 - 145 mEq/L 07/22/2016 14:46 [facility] Chloride 101 96 - 110 mEq/L 07/22/2016 14:46 [facility] CO2 28 22 - 32 mEq/L 07/22/2016 14:46 [facility] Comment:Note new reference r tommy 03/03/16 Total Alkaline Phosphatase 65 38 - 126 U/L 07/22/2016 14:46 [facility] Bilirubin, Total <0.5 <1.4 mg/dl 07/23/19 17 14:46 [facility] AST 26 15 - 46 U/L 07/22/2016 14:46 [facility] ALT 45 <53 U/L 07/22/2016 14:46 [facility] Albumin 4.7 3.4 - 4.9 g/dl 07/22/2016 14:46 [facility] Total Protein 7.5 6.3 - 8.2 g/dl 07/22/2016 14:46 [facility] Creatinine 0.63 0.52 - 1.04 mg/dl 07/22/2016 14:46 [facility] GFR, Calculated 101 >60 ml/min/1.7 3m2 07/22/2016 14:46 [facility] Comment: eGFR calculated using CKD-EPI equation for non Americans. Multiply eGFR by 1.16 for Americans. BUN 12 10 - 26 mg/dl 07/22/2016 14:46 [facility] Calcium 10.3 8.5 - 10.5 mg/dl 07/22/2016 14:46 [facility] Calculated Calcium 9.7 8.5 - 10.5 mg/dl 07/22/2016 14:46 [facility] Comment: Note new formula for calculation in use 02/19/2016 Glucose, Serum 123(H) 70 - 100 mg/dl 07/22/2016 14:46 [facility] Fasting? No 07/22/2016 12:07 [facility] Blood specimen (specimen) BLOOD SPECIMEN / Unknown 07/22/2016 12:07 EST 07/22/2016 14:02 EST Bryant Ramírez MD CHEMISTRY & BLOOD GAS ORDERABLES [facility] [address] [place] [address] * GLUTAMIC ACID DECARBOXYLASE ANTIBODY (07/22/2016 12:07 EST) Glutamic Acid Decarboxylase Antibody Assay 0.00 <=0.02 nmol/L 07/24/2016 8:05 EST [facility] Comment: (Note) . ADDITIONAL INFORMATION This test was developed and its performance characteristics determined by [facility] in a manner consistent with CLIA requirements. This test has not been cleared or approved by the U.S. Food and Drug Administration. Performed or Referred by: [facility], [address] [place] [address], Lab Dir: Prasad Maurice II, M.D., Ph.D. Blood specimen (specimen) BLOOD SPECIMEN / Unknown 07/22/2016 12:07 EST 07/22/2016 14:02 EST Bryant Ramírez MD IMMUNOLOGY AND SER OLOGY ORDERABLES Performing Organization Address [facility] Co de Phone Number [facility] [address] [place] [address] * (ABNORMAL) POCT HEMOGLOBIN A1C (07/22/2016 11:40 EST) Pathologist [facility] Hemoglobin A1C, POC Interfaced 7.7(H) <5.7 % 07/22/2016 11:48 EST [facility] wick tender ID [id number] 07/22/2016 11:48 EST [facility] Comment:Test performed at En docrinology Blood specimen (specimen) BLOOD SPECIMEN / Unknown 07/22/2016 11:40 EST 07/22/2016 11:48 EST Bryant Ramírez MD POINT OF CARE TEST ORDERABLES Performing Organization Address [facility] Co de Phone Number [facility] [address] [place] [address] documented in this encounter Visit Diagnoses Diagnosis Type 2 diabetes mellitus with hyperglycemia, unspecified eligibility manager insulin use status- Primary Type 2 diabetes mellitus with diabetic neuropathy, unspecified eligibility manager insulin use status documented in this encounter Discontinued Medications Medication Sig Discontinue Reason Start Date End Da te simvastatin (ZOCOR) 40 mg tablet Take 40 mg by mouth daily. Reported on 07/22/2016 07/22/2016 documented as of this encounter Historical Medications * This list may reflect changes made after this encounter. Medication Sig Dispensed Refills Start Date End Date blood glucose (FREESTYLE TEST) test strips 1 Strip by misc (non-drug; combo route) route daily. blood glucose meter (FREESTYLE FREEDOM LITE) by misc (non-drug; combo route) route once. lisinopril (PRINIVIL, ZESTRIL) 10 mg tablet Take 10 mg by mouth daily. atorvastatin (LIPITOR) 40 mg tablet Take 40 mg by mouth daily. insulin glargine (LANTUS SOLOSTAR) 100 unit/mL (3 mL) injection penIndications:type 2 diabetes mellitus Inject 22 Units into the skin at bedtime. 05/03/2016 07/27/2019 added in this encounter Orders Lab Orders Without Results Count Last Ordered D ate First Ordered Date POCT HEMOGLOBIN A1C 1 07/22/2016 documented in this encounter Care Teams Auto Service Advisor Relationship Specialty Start Date End Date Kendall De La Fuente MD PCP - General 03/29/13 07/21/18 documented as of this encounter
--- OUTSIDE RECORDS SUMMARY | 2024-01-07 18:38 | XMS_ITS | Encounter Summary ---
Author Organization [facility] Address [address] [place] [address] Care Team Providers Care Marine Gear Keeper Name Role Phone Kendall De La Fuente MD Primary Care Provider Unav ailable Reason for Visit * Reason Comments Diabetes Encounter Details Date Type Department Care Team (Latest Contact Info) Description 07/26/2017 9:40 EDT Office Visit [facility] Endocrinology - [facility] [address] [place] [address] Bryant Ramírez MD [address] [facility] [address] [place] [address] Type 2 diabetes mellitus with hyperglycemia, with long-term current use of insulin (HCC) (Primary Dx); Type 2 diabetes mellitus with diabetic neuropathy, without long-term current use of insulin (HCC); Mixed dyslipidemia Discharge Disposition: Auto Discharge Social History Tobacco Use Types Packs/Day Years Used Date Smoking Tobacco: Former Smokeless Tobacco: Never Comments:smoked 2 years in [facility] sporadic Alcohol Use Standard Drinks/Week Comments Yes 0 (1 standard drink = 0.6 oz pur e alcohol) seldom Sex and Gender Information Value Date Recorded Sex Assigned at Not on file Gender Identity Female 07/03/2019 10:27 EST Sexual Orientation Not on file documented as of this encounter Last Filed Vital Signs Vital Sign Reading Time Taken Comments Blood Pressure 158/82 07/26/2017 0941 EDT Pulse 102 07/26/2017 0941 EDT Temperature - - Respiratory Rate - - Oxygen Saturation - - Inhaled Oxygen Concentration - - Weight 76.7 kg (169 lb) 07/26/2017 0941 EDT Height 170.2 cm (5' 7) 07/26/2017 0941 EDT Body Mass Index 26.47 07/26/2017 0941 EDT documented in this encounter Functional Status [...] * Patient Instructions* Bryant Ramírez MD - 07/26/2017 9:40 EDT Check Blood Sugar: Before breakfast and two hours after a meal. 18 units lantus + januvia 100 mgm + metformin ER 500 - 2 twice daily ?? Increase gabapentin 300 mgm Hb A1c in 8 weeks documented in this encounter Ordered Prescriptions Prescription Sig Dispensed Refills Start Date End Da te gabapentin (NEURONTIN) 300 mg capsule Take 1 Cap by mouth 3 times daily. 100 Cap 3 07/26/2017 08/06/2017 documented in this encounter Discharge Disposition Disposition Code Departure Means Destination Auto Discharge documented in this encounter Progress Notes * Bettina Reyes - 07/26/2017 0940 EDT Fingerstick blood sample obtained for POCT Hemoglobin A1C performed for this DOS at the order of Bryant Ramírez MD * Bryant Ramírez MD - 07/26/2017 0940 EDT [facility] Diabetes Follow-Up Note CHIEF COMPLAINT: Tom Dixon presents in clinic today with: 1. Type 2 diabetes mellitus with hyperglycemia, with long-term current use of insulin (HCC) 2. Type 2 diabetes mellitus with diabetic neuropathy, without long-term current use of insulin (HCC) 3. 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 Onset time: dx'ed 1999 ? [...] Glutamic Acid Decarboxylase Antibody Assay <=0.02 nmol/L ? 16 units lantus + januvia 100 mgm + metformin ER 500 ii BID ?? Add gabapentin 100 mgm ?? HPI Tom Dixon recently has a history of being in fair glycemic control. Patient's home regimen consists of has a current medication list which includes the following prescription(s): ascorbic acid (vitamin c), aspirin chewable, atorvastatin, blood glucose, blood glucose meter, diltiazem, echinacea, gabapentin, insulin glargine, lisinopril, metformin, methocarbamol, mult ivitamins with minerals, sitagliptin, tocopheryl acetate, and zinc acetate. The patient has experienced the following acute complications: none. Social History Substance Use Topics ??? Smoking status: Former Smoker ??? Smokeless tobacco: Never Used Comment: smoked 2 years in college sporadic ??? Alcohol use Yes Comment: seldom PHYSICAL EXAMINATION: Vitals: BP (!) 158/82 Pulse 102 Ht 170.2 cm (67) Wt 76.7 kg (169 lb) BMI 26.47 kg/m2 BMI: Body mass index is 26.47 kg/(m^2). Physical Exam Funduscopic: no microaneurysms, exudates, hemorrhages [...] Results Component Value Date HGBA1C 7.7 (H) 07/26/2017 HGBA1C 7.7 (H) 07/22/2016 Lab Results Component Value Date CHOL 187 07/22/2016 HDL 55 07/22/2016 LDLBASE 71 07/22/2016 TRIG 307 07/22/2016 CHOLHDL 3.4 07/22/2016 Lab Results Component Value Date BUN 12 07/22/2016 CREATININE 0.63 07/22/2016 NA 141 07/22/2016 K 4.5 07/22/2016 Lab Results Component Value Date ALT 45 07/22/2016 Lab Results Component Value Date LABALBU 4.7 07/22/2016 UCREA 77.2 07/22/2016 MICRALBCRRAT 13.0 07/22/2016 ASSESSMENT/PLAN: 1. Type 2 diabetes mellitus with hyperglycemia, with long-term current use of insulin ([facility]) 2. Type 2 diabetes mellitus with diabetic neuropathy, without long-term current use of insulin ([facility]) 3. Mixed dyslipidemia once again we discussed the fact these had diabetes since year 1999. At this point is unclear whether or not she has adequate beta cell function with a hemoglobin A1c is 7.7% it appears that she probably does. However it looks like the DPP 4 inhibitor plus metformin with a basal insulin is not quite working. We therefore elected to increase her basal insulin total morning blood sugar 110 - 120 andsee what her hemoglobin A1c is if this does not work we will either go to a GLP 1 analog or SGL T2 inhibitor. The mechanism of both have been described at length to the patient today. Both of these agents have recently been shown to have beneficial cardiovascular effect. She has an appointment with her primary [...] aspirin daily. Insulin: Insulin stabilization is required: Before breakfast and two hours after a meal. 18 units lantus + januvia 100 mgm + metformin ER 500 - 2 twice daily ?? Increase gabapentin 300 mgm Non-insulin: diet. Recommended: Already on an PITER inhibitor and a statin. Glucose monitoring BID. Referred to diabetic education program. Referred to waste water or water plant operator no. Patient referred to eye childcare teacher for annual dilated eye exam. Lifestyle modifications: [...] statin, is an option. Bryant Ramírez MD 07/26/2017 10:19 Results for TOM DIXON ( ) as of 07/27/2017 11:01 Ref. Range 07/26/2017 10:33 T4, Free Latest Ref Range: 0.8 - 2.2 ng/dl 1.0 TSH Latest Ref Range: 0.47 - 4.68 uIU/ml 1.37 Results for TOM DIXON ( ) as of 07/27/2017 11:01 Ref. Range 07/26/2017 10:33 Cholesterol Latest Units: mg/dl 167 Triglycerides Latest Units: mg/dl 287 HDL Latest Units: mg/dl 58 LDL, Calculated Latest Units: mg/dl 52 Chol/HDL Ratio, External Unknown 2.9 Non HDL Cholesterol Latest Units: mg/dl 109 Results for TOM DIXON ( ) as of 07/27/2017 11:01 Ref. Range 07/26/2017 10:33 Sodium Latest Ref Range: 136 - 145 mEq/L 141 Potassium Latest Ref Range: 3.5 - 5.0 mEq/L 4.6 CO2 Latest Ref Range: 22 - 32 mEq/L 23 Chloride Latest Ref Range: 96 - 110 mEq/L 104 BUN Latest Ref Range: 10 - 26 mg/dl 13 Creatinine Latest Ref Range: 0.52 - 1.04 mg/dl 0.63 ALT Latest Ref Range: <53 U/L 57 (H) GFR, Calculated Latest Ref Range: >60 ml/min/1.73m2 101 Glucose, Serum Latest Ref Range: 70 - 100 mg/dl 139 (H) Calcium Latest Ref Range: 8.5 - 10.5 mg/dl 10.6 (H) Calculated Calcium Latest Ref Range: 8.5 - 10.5 mg/dl 10.1 Total Protein Latest Ref Range: 6.3 - 8.2 g/dl 7.7 Albumin Latest Ref Range: 3.4 - 4.9 g/dl 4.6 Total Alkaline Phosphatase Latest Ref Range: 38 - 126 U/L 61 AST Latest Ref Range: 15 - 46 U/L 28 Bilirubin, Total Latest Ref Range: <1.4 mg/dl 0.5 documented in this encounter Plan of Treatment Not on file documented as of this encounter Procedures Procedure Name Priority Date/Time Associated Diagnosis Comments POCT HEMOGLOBIN A1C, INTERFACED Routine 07/26/2017 9:44 EDT Type 2 diabetes mellitus with hyperglycemia, with long-term current use of insulin (HCC) documented in this encounter Results * (ABNORMAL) POCT HEMOGLOBIN A1C (07/25/2018 9:57 EDT) Hemoglobin A1C, POC Interfaced 7.4(H) <5.7 % 07/25/2018 10:17 EDT [facility] aluminum pourer ID [id number] 07/25/2018 10:17 EDT [facility] Comment: For Hgb A1c values [...] Ramírez MD POINT OF CARE TEST ORDERABLES [facility] [address] [place] [address] * TSH (07/26/2017 10:33 EDT) TSH 1.37 0.47 - 4.68 uIU/ml 07/26/2017 15:26 EDT [facility] Blood specimen (specimen) BLOOD SPECIMEN / Unknown 07/26/2017 10:33 EDT 07/26/2017 14:26 EDT Bryant Ramírez MD CHEMISTRY & BLOOD GAS ORDERABLES [facility] [address] [place] [address] * T4 FREE (07/26/2017 10:33 EDT) T4, Free 1.0 0.8 - 2.2 ng/dl 07/26/2017 15:13 EDT [facility] Blood specimen (specimen) BLOOD SPECIMEN / Unknown 07/26/2017 10:33 EDT 07/26/2017 14:26 EDT Bryant Ramírez MD CHEMISTRY & BLOOD GAS ORDERABLES [facility] [address] [place] [address] * (ABNORMAL) COMPREHENSIVE METABOLIC PANEL (CMP) (07/26/2017 10:33 EDT) Potassium 4.6 3.5 - 5.0 mEq/L 07/26/2017 17:58 [facility] Sodium 141 136 - 145 mEq/L 07/26/2017 17:58 [facility] Chloride 104 96 - 110 mEq/L 07/26/2017 17:58 [facility] CO2 23 22 - 32 mEq/L 07/26/2017 17:58 [facility] Total Alkaline Phosphatase 61 38 - 126 U/L 07/26/2017 17:58 [facility] Bilirubin, Total 0.5 <1.4 mg/dl 07/27/19 18 17:58 [facility] AST 28 15 - 46 U/L 07/26/2017 17:58 [facility] ALT 57(H) <53 U/L 07/26/2017 17:58 [facility] Albumin 4.6 3.4 - 4.9 g/dl 07/26/2017 17:58 [facility] Total Protein 7.7 6.3 - 8.2 g/dl 07/26/2017 17:58 [facility] Creatinine 0.63 0.52 - 1.04 mg/dl 07/26/2017 17:58 [facility] GFR, Calculated 101 >60 ml/min/1.7 3m2 07/26/2017 17:58 [facility] Comment: eGFR calculated using CKD-EPI equation for non Americans. Multiply eGFR by 1.16 for Americans. BUN 13 10 - 26 mg/dl 07/26/2017 17:58 [facility] Calcium 10.6(H) 8.5 - 10.5 mg/dl 07/26/2017 17:58 EDT [facility] Calculated Calcium 10.1 8.5 - 10.5 mg/dl 07/26/2017 17:58 T [facility] Glucose, Serum 139(H) 70 - 100 mg/dl 07/26/2017 17:58 T [facility] Fasting? Unknown 07/26/2017 14:27 EDT [facility] Blood specimen (specimen) BLOOD SPECIMEN / Unknown 07/26/2017 10:33 EDT 07/26/2017 14:26 EDT Bryant Ramírez MD CHEMISTRY & BLOOD GAS ORDERABLES Performing Organization Address [facility] Co de Phone Number [facility] [address] [place] [address] * ALBUMIN, URINE (07/26/2017 10:33 EDT) Creatinine, Urn [place] 59.5 mg/dl 07/27/2017 10:15 EDT [facility] Ur Albumin mg/dl 0.3 mg/dl 07/27/2017 13:52 [facility] Ur Alb ug/mg Crea 5.0 ug/mg Crea 07/27/2017 13:52 T [facility] Comment: Normal: <30 ug/mg creat High albuminuria: 30-300 ug/mg creat Very high albuminuria: >300 ug/mg creat Urine specimen (specimen) URINE / Unknown 07/26/2017 10:33 EDT 07/26/2017 14:27 EDT Bryant Ramírez MD CHEMISTRY & BLOOD GAS ORDERABLES Performing Organization Address [facility] Co de Phone Number [facility] [address] [place] [address] * LIPID PROFILE (INCLUDES CHOLESTEROL, TRIGLYCERIDES, HDL, LDL) (07/26/2017 10:33 EDT) Cholesterol 167 mg/dl 07/26/2017 17:58 EDT [facility] Comment: Desirable:<200 Borderline High:200-239 High:>qd=631 Triglycerides 287 mg/dl 07/26/2017 17:58 [facility] Comment: Normal:<150 Borderline High:150-199 High:200-499 Very High:>rr=863 HDL 58 mg/dl 07/26/2017 17:58 [facility] Comment: Low:<40 Normal:40-60 Desirable: >60 LDL, Calculated 52 mg/dl 8 17:58 [facility] Comment: Optimal:<100 Near Optimal:100-129 Borderline High:130-159 High:160-189 Very High:>vc=997 Chol/HDL Ratio 2.9 07/26/2017 17:58 [facility] Fasting? Unknown 07/26/2017 14:27 [facility] Non HDL Cholesterol 109 mg/dl 07/26/2017 17:58 [facility] Comment: Desirable:<130 Borderline:130-159 High: 160-189 Very High: >mi=997 Blood specimen (specimen) BLOOD SPECIMEN / Unknown 07/26/2017 10:33 EDT 07/26/2017 14:26 EDT Bryant Ramírez MD CHEMISTRY & BLOOD GAS ORDERABLES Performing Organization Address City/[facility]/ZIP Co de Phone Number [facility] [address] [place] [address] * (ABNORMAL) POCT HEMOGLOBIN A1C (07/26/2017 9:44 EDT) Hemoglobin A1C, POC Interfaced 7.7(H) <5.7 % 07/26/2017 10:01 EDT [facility] aluminum pourer ID [id number] 07/26/2017 10:01 T [facility] Comment:Test performed at En docrinology Blood specimen (specimen) BLOOD SPECIMEN / Unknown 07/26/2017 9:44 EDT 07/26/2017 10:01 EDT Bryant Ramírez MD POINT OF CARE TEST ORDERABLES Performing Organization Address City/[facility]/ZIP Co de Phone Number [facility] [address] [place] [address] documented in this encounter Visit Diagnoses Diagnosis Type 2 diabetes mellitus with hyperglycemia, with long-term current use of insulin (HCC)- Primary Type 2 diabetes mellitus with diabetic neuropathy, without long-term current use of insulin (HCC) Mixed dyslipidemia Mixed hyperlipidemia documented in this encounter Discontinued Medications Medication Sig Discontinue Reason Start Date End Da te gabapentin (NEURONTIN) 100 mg capsule Take 1 Cap by mouth at bedtime. 07/22/2017 07/26/2017 documented as of this encounter Historical Medications * This list may reflect changes made after this encounter. Medication Sig Dispensed Refills Start Date End Date methocarbamol (ROBAXIN) 500 mg tablet Take 1,000 mg by mouth as needed. sitaGLIPtin (JANUVIA) 100 mg tablet Take 100 mg by mouth daily. added in this encounter Care Teams Marine Gear Keeper Relationship Specialty Start Date End Date Kendall De La Fuente MD PCP - General 03/29/13 07/21/18 documented as of this encounter
--- OUTSIDE RECORDS SUMMARY | 2024-01-07 18:38 | XMS_ITS | Encounter Summary ---
Author Organization [facility] Address [address] [place] [address] Care Team Providers Care Blueprint Maker Name Role Phone Valerie Ochoa Primary Care Provider [phone] Reason for Visit * Reason Onset Date Comments Medications Refill 12/16/2020 Encounter Details Date Type Department Care Team (Late st Contact Info) Description 12/16/2020 Refill [facility] Endocrinology - [facility] [address] [place] [address] Bryant Ramírez MD [address] [facility] [address] [place] [address] Medications Refill Social History Tobacco Use Types [...] mgm at hs 200 capsule 3 12/16/2020 documented in this encounter Miscellaneous Notes * Telephone Encounter - Trupti Mcdowell MA - 12/16/2020 1239 EDT Images from the original note were not included. We received a fax from [facility] requesting a refill for GABAPENTIN 300MG CAP. Please review appropriately. documented in this encounter Plan of Treatment Not on file documented as of this encounter Visit Diagnoses Not on filedocumented in this encounter Discontinued Medications Medication Sig Discontinue Reason Start Date End Da te gabapentin (NEURONTIN) 300 mg capsule Take 1 Cap by mouth 2 times daily. 600 mgm at hs Reorder 07/27/2019 12/16/2020 documented as of this encounter Care Teams Blueprint Maker Relationship Specialty Start Date End Date Valerie Ochoa [address] [place] [address] PCP - General 07/22/18 documented as of this encounter
--- OUTSIDE RECORDS SUMMARY | 2024-01-07 18:38 | XMS_ITS | Encounter Summary ---
Author Organization [facility] Address [address] [place] [address] Care Team Providers Care Manager Long Term Care Name Role Phone Helena Broussard MD Primary Care Provider Unav ailable Encounter Details Date Type Department Care Team (Late st Contact Info) Description 07/15/2017 Results Only [facility] [phone] Shiva Joe MD Social History Tobacco Use Types Packs/Day Years [...] No 07/22/2016 documented as of this encounter Plan of Treatment Not on file documented as of this encounter Procedures Procedure Name Priority Date/Time Associated Diagnosis Comments PAP TEST- RESULT ONLY Routine 07/15/2017 0:00 EST documented in this encounter Results * PAP TEST- RESULT ONLY (07/15/2017 0:00 EST) Pathology Report: CYTOPATHOLOGY REPORT Reports generated via electronic interface contain original data; however they are lacking the format of the original report. Caution should be taken when reading/interpreti ng unformatted reports. Name: ? TOM DIXON ? Accession #: ? [id number] : ? 1960 (Age: 57) ??F ?Collect Date: ? 07/15/2017 Location: ? [facility] ? Receive Date: ? 07/16/2017 Provider: ?SHIVA JOE MD Copy to: ?HELENA BROUSSARD MD ? Specimen/Source: ?Pap Test, Cervix/Endocervix, ThinPrep Imaging System with manual evaluation Last Menstrual Period: ? Menstrual/Pregnanc y Status: ? Post Menopausal Treatment History: ? Endometrial biopsy: 2012 ECC: 2012 ? SPECIMEN ADEQUACY ? Satisfactory for Evaluation - transformation zone component present GENERAL CATEGORIZATION ? Negative for Intraepithelial Lesion or Malignancy ? Document reviewed and electronically signed by: ? CARLY Olvera(ASCP) ? Report Date: ??07/26/2017 09:41 End of Report [facility] 07/15/2017 07/16/2017 Shiva Joe MD PATHOLOGY ORDERABLES [facility] [address] [place] [address] documented in this encounter Visit Diagnoses Not on filedocumented in this encounter Care Teams Manager Long Term Care Relationship Specialty Start Date End Date Helena Broussard MD PCP - General 03/29/13 07/21/18 documented as of this encounter
--- OUTSIDE RECORDS SUMMARY | 2024-01-07 18:38 | XMS_ITS | Encounter Summary ---
Author Organization [facility] Address [address] [place] [address] Care Team Providers Care Emergency Dispatcher Name Role Phone Valerie Ochoa Primary Care Provider [phone] Reason for Visit * Reason Comments Diabetes Encounter Details Date Type Department Care Team (Latest Contact Info) Description 07/27/2019 10:50 EDT Office Visit [facility] Endocrinology - [facility] [address] [place] [address] Bryant Ramírez MD [address] [facility] [address] [place] [address] Type 2 diabetes mellitus with hyperglycemia, with long-term current use of insulin ([facility]) (Primary Dx); Mixed dyslipidemia; Essential hypertension, benign; Type 2 diabetes mellitus with diabetic neuropathy, with long-term current use of insulin ([facility]) Social History Tobacco Use Types Packs/Day Years Used Date Smoking Tobacco: Former Smokeless Tobacco: Never Comments:smoked 2 years in [facility] sporadic Alcohol Use Standard Drinks/Week [...] EDT Pulse 104 07/27/2019 1103 EDT Temperature - - Respiratory Rate - - Oxygen Saturation - - Inhaled Oxygen Concentration - - Weight 74.4 kg (164 lb) 07/27/2019 1103 EDT Height 170.2 cm (5' 7.01) 07/27/2019 1103 EDT Body Mass Index 25.68 07/27/2019 1103 EDT documented in this encounter Functional Status [...] * Patient Instructions* Bryant Ramírez MD - 07/27/2019 10:50 EDT Images from the original note were not included. Check Blood Sugar: Before breakfast and two hours after a meal. 24 lantus every night januvia 100 Metformin ER 500 mgm 2 twice daily Increase gabapentin to 600 mgm each night documented in this encounter Ordered Prescriptions Prescription Sig Dispensed Refills Start Date End Da te insulin glargine (LANTUS SOLOSTAR U-100 INSULIN) 100 unit/mL (3 mL) injection penIndications:type 2 diabetes mellitus Inject 24 Units into the skin at bedtime. 30 mL 3 07/27/2019 06/24/2020 metFORMIN (GLUCOPHAGE-XR) 500 mg ER tablet 2 tabs BID 400 Tab 3 07/27/2019 06/24/2020 gabapentin (NEURONTIN) 300 mg capsule Take 1 Cap by mouth 2 times daily. 600 mgm at hs 200 Cap 3 07/27/2019 12/16/2020 documented in this encounter Progress Notes * Magda Kwok MA - 07/27/2019 1050 EDT Fingerstick blood sample obtained for POCT Hemoglobin A1C performed for this DOS at the order of Bryant Ramírez MD * Bryant Ramírez MD - 07/27/2019 1050 EDT Images from the original note were not included. [facility] Diabetes Follow-Up Note CHIEF COMPLAINT: Glendy Lechuga presents in clinic today with: 1. Type 2 diabetes mellitus with hyperglycemia, with long-term current use of insulin ([facility]) 2. Mixed dyslipidemia 3. Essential hypertension, benign 4. 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 Onset time: dx'ed 1999 ? [...] being taken. She does not see a colorist.Eye exam is not current. Glendy Lechuga recently [...] Comment: seldom PHYSICAL EXAMINATION: Vitals: BP (!) 155/74 Pulse 104 Ht 170.2 cm (67.01) Wt 74.4 kg (164 lb) BMI 25.68 kg/m?? BMI: Body mass index is 25.68 kg/m??. Physical Exam Funduscopic: no microaneurysms, exudates, [...] LABS: Lab Results Component Value Date HGBA1C 7.1 (H) 07/27/2019 HGBA1C 7.4 (H) 07/25/2018 HGBA1C 7.7 (H) 07/26/2017 Lab Results Component Value Date CHOL 167 07/26/2017 HDL 58 07/26/2017 LDLBASE 52 07/26/2017 TRIG 287 07/26/2017 CHOLHDL 2.9 07/26/2017 Lab Results Component Value Date BUN 13 07/26/2017 CREATININE 0.63 07/26/2017 NA 141 07/26/2017 K 4.6 07/26/2017 Lab Results Component Value Date ALT 57 (H) 07/26/2017 Lab Results Component Value Date LABALBU 4.6 07/26/2017 UCREA 59.5 07/26/2017 MICRALBCRRAT 5.0 07/26/2017 ASSESSMENT/PLAN: 1. Type 2 diabetes mellitus with hyperglycemia, with long-term current use of insulin ([facility]) 2. Mixed dyslipidemia 3. Essential hypertension, benign 4. Type 2 diabetes mellitus with diabetic neuropathy, with long-term current use of insulin ([facility]) once again we discussed the fact these had diabetes since year 1999. However it looks like the DPP 4 inhibitor plus metformin with a basal insulin is Working, with a slight rise in morning blood sugar. Therefore I have increase her Lantus minimally. Because of continuing discomfort in her feet I have increased her gabapentin to 600 mg at at bedtime for 2-week trial if this occurs I will refill her prescription at a higher dose She has an appointment with her primary care physician fairly soon and therefore I repeated all herlabs a Since her major complaint now is her painful neuropathy have increase in gabapentin to 600 mg each night Attached please find my consult note with the full details of your patents' visit. Medications: Recommend aspirin daily. Insulin: Insulin stabilization is required: Check Blood Sugar: Before breakfast and two hours after a meal. 24 lantus every night januvia 100 Metformin ER 500 mgm 2 twice daily Increase gabapentin 600 mgm qhs Non-insulin: diet. Recommended: Already on an PITER inhibitor and a statin. Glucose monitoring BID. Referred to diabetic education program. Referred to brass molder no. Patient referred to eye personal care worker for annual dilated eye exam. Lifestyle modifications: [...] statin, is an option. Bryant Ramírez MD 07/27/2019 11:35 documented in this encounter Plan of Treatment Pending Results Name Type Priority Associated Diagnoses Date /Time POCT HEMOGLOBIN A1C, INTERFACED ORDER Lab Routine Type 2 diabetes mellitus with hyperglycemia, with long-term current use of insulin ([facility]) 07/27/2019 10:59 EDT POCT CSN BARCODE HEMOGLOBIN A1C INT Lab Routine Type 2 diabetes mellitus with hyperglycemia, with long-term current use of insulin ([facility]) 07/27/2019 11:01 EDT documented as of this encounter Procedures Procedure Name Priority Date/Time Associated Diagnosis Comments POCT HEMOGLOBIN A1C, INTERFACED Routine 07/27/2019 10:59 EDT Type 2 diabetes mellitus with hyperglycemia, with long-term current use of insulin ([facility]) documented in this encounter Results * (ABNORMAL) POCT HEMOGLOBIN A1C, INTERFACED (07/27/2019 10:59 EDT) Hemoglobin A1c, POC 7.1(H) <5.7 % 07/27/2019 11:20 EDT [facility] solvent plant treater ID [id number] 07/27/2019 11:20 EDT [facility] Blood VENOUS BLOOD / Unknown 07/27/2019 10:59 EDT 07/27/2019 11:20 EDT Narrative [facility] - 07/27/2019 11:20 EDT For Hgb A1c values => 10%, a venous blood measurement in the main laboratory for confirmation is available. Reference Range: <5.7% Normal 5.7-6.4% Prediabetes =>6.5% Diagnostic for diabetes (if confirmed). Goals for glycemic control in diabetes ADA 2017. For non adults with diabetes: Target <7.0% For children and adolescents with type 1 diabetes: Target <7.5% More or less stringent targets may be appropriate for individual patients. Test performed at Endocrinology. Bryant Ramírez MD POINT OF CARE TEST ORDERABLES [facility] [address] [place] [address] documented in this encounter Visit Diagnoses Diagnosis Type 2 diabetes mellitus with hyperglycemia, with long-term current use of insulin ([facility] Mixed dyslipidemia Mixed hyperlipidemia Essential hypertension, benign Type 2 diabetes mellitus with diabetic neuropathy, with long-term current use of insulin ([facility]) documented in this encounter Discontinued Medications Medication Sig Discontinue Reason Start Date End Da te gabapentin (NEURONTIN) 300 mg capsule Take 1 Cap by mouth at bedtime. 08/06/2017 07/27/2019 metFORMIN (GLUCOPHAGE) 500 mg tablet Take 1,000 mg by mouth 2 times daily. 07/27/2019 insulin glargine (LANTUS SOLOSTAR) 100 unit/mL (3 mL) injection penIndications:type 2 diabetes mellitus Inject 22 Units into the skin at bedtime. Reorder 05/03/2016 07/27/2019 documented as of this encounter Care Teams Emergency Dispatcher Relationship Specialty Start Date End Date Valerie Ochoa [address] [facility] [place] [address] PCP - General 07/22/18 documented as of this encounter
--- OUTSIDE RECORDS SUMMARY | 2024-01-07 18:38 | XMS_ITS | Encounter Summary ---
Author Organization [facility] Address [address] [place] [address] Care Team Providers Care Abrasive Band Winder Name Role Phone Kendall De La Fuente MD Primary Care Provider Unav ailable Reason for Visit * Reason Onset Date Comments Medication Questions 08/06/2017 Gabapentin Encounter Details Date Type Department Care Team (Late st Contact Info) Description 08/06/2017 Telephone [facility] Endocrinology - [facility] [address] [place] [address] Bryant Ramírez MD [address] [facility] [address] [place] [address] Medication Questions (Gabapentin) Social History Tobacco Use Types Packs/Day Years [...] No 07/26/2017 documented as of this encounter Miscellaneous Notes * Telephone Encounter - Carlos Shell RN - 08/06/2017 1602 EDT See previous note in regards to this matter. Pt instructed to take once daily at bedtime. Updated medication list to reflect dosing. * Telephone Encounter - Matilde Hughes - 08/06/2017 1554 EDT Reason for Call: Medication Questions (Gabapentin) Summary/Symptoms: Patient would like to know about Gabapentin 100 mg was changed to what she believed was to be 300 mg in July 2017. Prescription came through 1x 3 times 300 mg a day. She thinks there was an error as it is a major increase. Matilde Hughes 08/06/2017 15:54 documented in this encounter Plan of Treatment Not on file documented as of this encounter Visit Diagnoses Not on filedocumented in this encounter Care Teams Abrasive Band Winder Relationship Specialty Start Date End Date Kendall De La Fuente MD PCP - General 03/29/13 07/21/18 documented as of this encounter
--- OUTSIDE RECORDS SUMMARY | 2024-01-07 18:38 | XMS_ITS | Encounter Summary ---
Author Organization [facility] Address [address] [place] [address] Care Team Providers Care Soda Jerker Name Role Phone Valerie Ochoa Primary Care Provider [phone] Encounter Details Date Type Department Care Team (Latest Contact Info) Description 05/08/2021 Lab Requisition [facility] Pathology & Laboratory Medicine - [facility] [address] [place] [address] Vashti Banks, [facility] [address] [facility], [address] [place] [address] Encounter for screening for malignant neoplasm of cervix; Encounter for screening for human papillomavirus (HPV) Social History Tobacco Use Types Packs/Day Years Used Date Smoking Tobacco: Former Smokeless Tobacco: Never Comments:smoked 2 years in [facility] sporadic Alcohol Use Standard Drinks/Week [...] No 07/26/2017 documented as of this encounter Plan of Treatment Not on file documented as of this encounter Procedures Procedure Name Priority Date/Time Associated Diagnosis Comments PAP TEST Today 05/07/2021 18:08 EST HPV DNA DETECTION WITH GENOTYPING, PCR Today 05/07/2021 18:08 EST documented in this encounter Results * HUMAN PAPILLOMAVIRUS (HPV) DETECTION-HIGH RISK TYPES (05/07/2021 18:08 EST) HPV other High Risk types, PCR Negative Negative 05/21/2021 7:25 [facility] Comment:No E6 or E7 mRNA is detected from HPV types 16,18,31,33,35,39,45,51,52,56,58,59,66, and 68 by registered medical transcriptionist mediated amplification. Papanicolaou smear specimen (specimen) CERVIX UTERI STRUCTURE / Unknown 05/07/2021 18:08 EST 05/19/2021 14:24 EST Vashti Banks [facility] MICROBIOLOGY - GENE RAL ORDERABLES Performing Organization Address City/State/[facility] Co de Phone Number [facility] [address] [place] [address] * PAP TEST (05/07/2021 18:08 EST) Specimens A. Cervix and/or Endocervix , ThinPrep Imaging System with Manual Evaluation 05/21/2021 7:25 [facility] Specimen Adequacy Satisfactory for Evaluation - assessment of transformation zone component not applicable ( e.g. atrophy, vaginal sample, hysterectomy) 05/21/2021 7:25 [facility] General Categorization Negative for intraepithelial lesion or malignancy 05/21/2021 7:25 [facility] Attestation . 05/21/2021 7:25 [facility] at 0725 Clinical History Clinical History, Signs, Symptoms, Chief Complaint, Pertaining to This Order: See below 05/21/2021 7:25 EST [facility] HPV The result for the Human Papillomavirus (HPV) Detection-High Risk Types is Negative. No E6 or E7 mRNA is detected from HPV types 16,18,31,33,35,39 ,45,51,52,56,58,5 9,66, and 68 by registered medical transcriptionist mediated amplification.Milka ting was performed on specimen [id number] and was resulted on 05/21/2021 0718 EST by ELAINE, LAB INSTRUMENT RESULTS IN 05/21/2021 7:25 EST [facility] Performing Lab [facility] 05/21/2021 7:25 EST [facility] Scanned Images 05/21/2021 7:25 EST [facility] Papanicolaou smear specimen (specimen) CERVIX UTERI STRUCTURE / Unknown 05/07/2021 18:08 EST 05/12/2021 13:16 EST Vashti Banks [facility] PATHOLOGY ORDERABLE S [facility] [address] [place] [address] documented in this encounter Visit Diagnoses Diagnosis Encounter for screening for malignant neoplasm of cervix Screening for malignant neoplasm of the cervix Encounter for screening for human papillomavirus (HPV) Special screening examination for human papillomavirus (HPV) documented in this encounter Care Teams Soda Jerker Relationship Specialty Start Date End Date Valerie Ochoa [address] [place] [address] PCP - General 07/22/18 documented as of this encounter
--- OUTSIDE RECORDS SUMMARY | 2024-01-07 18:38 | XMS_ITS | Encounter Summary ---
Author Organization [facility] Address [address] [place] [address] Care Team Providers Care Supervisor Painting Name Role Phone Valerie Ochoa Primary Care Provider [phone] Reason for Visit * Reason Onset Date Comments Appointment Related 06/13/2020 Encounter Details Date Type Department Care Team (Late st Contact Info) Description 06/13/2020 Telephone [facility] Endocrinology - [facility] [address] [place] [address] Bryant Ramírez MD [address] [facility] [address] [place] [address] Appointment Related Social History Tobacco Use Types Packs/Day Years [...] encounter Miscellaneous Notes * Telephone Encounter - Brittany Gauthier - 06/13/2020 1624 EST LMOM regarding rescheduling 07/25/20 Bump. documented in this encounter Plan of Treatment Not on file documented as of this encounter Visit Diagnoses Not on filedocumented in this encounter Care Teams Supervisor Painting Relationship Specialty Start Date End Date Valerie Ochoa [address] [place] [address] PCP - General 07/22/18 documented as of this encounter
--- OUTSIDE RECORDS SUMMARY | 2024-01-07 18:38 | XMS_ITS | Encounter Summary ---
Author Organization [facility] Address [address] [place] [address] Care Team Providers Care Posting Specialist Name Role Phone Kendall De La Fuente MD Primary Care Provider Unav Valerie Grider Primary Care Provider [phone] Reason for Visit * Reason Onset Date Comments Labs Only 09/18/2016 A1C Encounter Details Date Type Department Care Team (Late st Contact Info) Description 09/18/2016 Telephone [facility] Endocrinology - [facility] [address] [place] [address] Bryant Ramírez MD [address] [facility] [address] [place] [address] Labs Only (A1C) Social History Tobacco Use Types Packs/Day Years [...] No 07/22/2016 documented as of this encounter Miscellaneous Notes * Telephone Encounter - Nuris Grant RN - 09/18/2016 1606 EDT Nurse at [facility] calling in A1C results done today 7.3 * Telephone Encounter - Phyllis Hummel - 09/18/2016 1603 EDT PCP report A1C documented in this encounter Plan of Treatment Not on file documented as of this encounter Visit Diagnoses Not on filedocumented in this encounter Care Teams Posting Specialist Relationship Specialty Start Date End Date Kendall De La Fuente MD PCP - General 03/29/13 07/21/18 Valerie Ochoa [address] [place] [address] PCP - General 07/22/18 documented as of this encounter
--- OUTSIDE RECORDS SUMMARY | 2024-01-07 18:38 | XMS_ITS | Encounter Summary ---
Author Organization [facility] Address [address] [place] [address] Care Team Providers Care Buggy Loader Name Role Phone Kendall De La Fuente MD Primary Care Provider Unav Valerie Grider Primary Care Provider [phone] Reason for Visit * Reason Onset Date Comments Results 04/19/2013 Encounter Details Date Type Department Care Team (Late st Contact Info) Description 04/19/2013 Telephone [facility] Cardiology - [address] [place] [address] Donaldo Gallegos MD [address] [place] [address] [address] [place] [address] Results Social History Tobacco Use Types Packs/Day Years Used Date Smoking Tobacco: Former Comments:smoked 2 years in [employer] sporadic Alcohol Use Standard Drinks/Week Comments Yes 0 (1 standard drink = 0.6 oz pur e alcohol) seldom Sex and Gender Information Value Date Recorded Sex Assigned at Not on file Gender Identity Female 07/03/2019 10:27 EST Sexual Orientation Not on file documented as of this encounter Miscellaneous Notes * Telephone Encounter - Viry Jay - 04/19/2013 0937 EST Pt requesting call back in regards to wanting to make sure that the notes and results from 03/30 ablation can be forwarded to Dr. Alcantara @ [facility] for her upcoming 05/04 appt w/him documented in this encounter Plan of Treatment Not on file documented as of this encounter Visit Diagnoses Not on filedocumented in this encounter Care Teams Buggy Loader Relationship Specialty Start Date End Date Kendall De La Fuente MD PCP - General 03/29/13 07/21/18 Valerie Ochoa [address] [place] [address] PCP - General 07/22/18 documented as of this encounter
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
--- OUTSIDE RECORDS SUMMARY | 2024-01-07 18:38 | XMS_ITS | Encounter Summary ---
Author Organization [facility] Address [address] [place] [address] Care Team Providers Care Svp Digital Sales Food & Cooking Name Role Phone Helena Broussard MD Primary Care Provider Unav ailable Encounter Details Date Type Department Care Team (Late st Contact Info) Description 05/30/2013 Results Only [facility] Laboratory Services - [address] [phone] Shiva Joe MD Social History Tobacco Use Types Packs/Day Years Used Date Smoking Tobacco: Former Comments:smoked 2 years in [place] sporadic Alcohol Use Standard Drinks/Week Comments [...] Diagnosis Comments PAP TEST- RESULT ONLY Routine 05/30/2013 0:00 EST documented in this encounter Results * PAP TEST- RESULT ONLY (05/30/2013 0:00 EST) Pathology Report: CYTOPATHOLOGY REPORT Reports generated via electronic interface contain original data; however they are lacking the format of the original report. Caution should be taken when reading/interpreti ng unformatted reports. Name: ? TOM DIXON ? Accession #: ? [id number] ? : ? 1960 (Age: 53) ??F ?Collect Date: ? 05/30/2013 ? Location: ? [facility] ? Receive Date: ? 06/01/2013 ? Provider: SHIVA JOE MD Copy to: HELENA BROUSSARD MD ? Final Report SPECIMEN ADEQUACY ? Satisfactory for Evaluation - transformation zone component present GENERAL CATEGORIZATION ? Negative for Intraepithelial Lesion or Malignancy ?? Last Menstrual Period: 04/26/13 Treatment History: Miscellaneous treatment: EMB/ECC 02/25 Other: Additional clinical information: Endometrial cells 02/25 Specimen/Source: ??Pap Test, Cervix/Endocervix, ThinPrep Imaging System with manual evaluation Document reviewed and electronically signed by: ? CARLY Pineda(ASCP) ? Report ??Date: 06/05/2013 09:05 HPV with Pap Test ? Date Ordered: ? 06/05/2013 ? Status: ?? Signed Out ?Date Complete: ? 06/07/2013 ? By: ??System Interface ? Date Reported: ? 06/07/2013 ? Interpretation RESULT: Negative for HPV. No E6 or E7 mRNA is detected from HPV types 16,18,31,33,35, 39,45,51,52,56,58, 59,66, and 68 by cigarette seller mediated amplification. Comments Document reviewed and electronically signed by: ? System Interface ? Report date: 06/07/2013 By the signature above, the attending physician certifies that he/she has personally conducted a gross and/or microscopic examination of the described specimens and rendered or confirmed the above diagnosis. End of Report [facility] 05/30/2013 06/01/2013 Shiva Joe MD PATHOLOGY ORDERABLES Performing Organization Address City/State/[facility] Co de Phone Number [facility] [address] [place] [address] documented in this encounter Visit Diagnoses Not on filedocumented in this encounter Care Teams Svp Digital Sales Food & Cooking Relationship Specialty Start Date End Date Helena Broussard MD PCP - General 03/29/13 07/21/18 documented as of this encounter
--- OUTSIDE RECORDS SUMMARY | 2024-01-07 18:38 | XMS_ITS | Encounter Summary ---
Author Organization [facility] Address [address] [place] [address] Care Team Providers Care Intelligence Analyst Name Role Phone Kendall De La Fuente MD Primary Care Provider Unav ailable Encounter Details Date Type Department Care Team (Latest Contact Info) Description 02/18/2017 10:27 EDT - 02/18/2017 23:59 EDT Hospital Encounter [address] [address] Unknown, Provider, Discharge Disposition: Home or Self Care Social History Tobacco Use Types Packs/Day Years Used Date Smoking Tobacco: Former Smokeless Tobacco: Never Comments:smoked 2 years in [facility] sporadic Alcohol Use Standard Drinks/Week Comments [...] No 07/22/2016 documented as of this encounter Medications at [...] by misc (non-drug; combo route) route once. DILTiazem (CARDIZEM CD) 120 mg capsule Take 120 mg by mouth daily. Reported on 07/22/2016 ECHINACEA 1X ORAL Take by mouth as needed. lisinopril (PRINIVIL, ZESTRIL) 10 mg tablet Take 10 mg by mouth daily. Multivitamins with Minerals tablet Take 1 Tab by mouth daily. tocopheryl acetate (VITAMIN E) 100 unit capsule Take 400 Units by mouth daily. ZINC ACETATE ORAL Take by mouth as needed. gabapentin (NEURONTIN) 100 mg capsule Take 1 Cap by mouth at bedtime. 30 Cap 11 07/22/2016 07/22/2017 insulin glargine (LANTUS SOLOSTAR) 100 unit/mL (3 mL) injection penIndications:type 2 diabetes mellitus Inject 22 Units into the skin at bedtime. 05/03/2016 07/27/2019 metFORMIN (GLUCOPHAGE) 500 mg tablet Take 1,000 mg by mouth 2 times daily. 07/27/2019 documented as of this encounter Discharge Disposition Disposition Code Departure Means Destination Home or Self Nursing Home documented in this encounter Plan of Treatment Not on file documented as of this encounter Visit Diagnoses Not on filedocumented in this encounter Care Teams Intelligence Analyst Relationship Specialty Start Date End Date Kendall De La Fuente MD PCP - General 03/29/13 07/21/18 documented as of this encounter
--- OUTSIDE RECORDS SUMMARY | 2024-01-07 18:38 | XMS_ITS | Encounter Summary ---
Author Organization [facility] Address [address] [place] [address] Care Team Providers Care Regional Director Name Role Phone Kendall De La Fuente MD Primary Care Provider Unav ailable Reason for Visit * Reason Onset Date Comments Medications Refill 07/22/2017 Encounter Details Date Type Department Care Team (Late st Contact Info) Description 07/22/2017 Refill [facility] Endocrinology - [facility] [address] [place] [address] Bryant Ramírez MD [address] [facility] [address] [place] [address] Medications Refill Social History Tobacco [...] No 07/22/2016 documented as of this encounter Ordered Prescriptions Prescription Sig Dispensed Refills Start Date End Da te gabapentin (NEURONTIN) 100 mg capsule Take 1 Cap by mouth at bedtime. 30 Cap 11 07/22/2017 07/26/2017 documented in this encounter Miscellaneous Notes * Telephone Encounter - Vera Marie - 07/22/2017 1026 EST Medication(s) Requested: Gabapentin Pharmacy: [facility] [phone] Next Visit Date 07/26/2017 Out of Medication? NO - Per pt, has 3 nights worth left that will last until Wednesday night. Pt made aware that the nurse has up to 72 hrs to call scripts in and to please call the pharmacy prior to garbage pick up worker. Please call the pt with any questions/concerns. Vera Marie 07/22/2017 10:26 documented in this encounter Plan of Treatment Not on file documented as of this encounter Visit Diagnoses Not on filedocumented in this encounter Discontinued Medications Medication Sig Discontinue Reason Start Date End Da te gabapentin (NEURONTIN) 100 mg capsule Take 1 Cap by mouth at bedtime. Reorder 07/22/2016 07/22/2017 documented as of this encounter Care Teams Regional Director Relationship Specialty Start Date End Date Kendall De La Fuente MD PCP - General 03/29/13 07/21/18 documented as of this encounter
--- OUTSIDE RECORDS SUMMARY | 2024-01-07 18:38 | XMS_ITS | Encounter Summary ---
Author Organization [facility] Address [address] [place] [address] Care Team Providers Care Net Application Support Specialist Name Role Phone Kendall De La Fuente MD Primary Care Provider Unav ailable Encounter Details Date Type Department Care Team (Late st Contact Info) Description 07/22/2016 Phlebotomy Only [address] [address] Bookstore Manager, Outpatient Type 2 diabetes mellitus with hyperglycemia, unspecified jail insulin use status ([facility]) (Primary Dx) Social History Tobacco Use Types Packs/Day Years [...] No 07/22/2016 documented as of this encounter Progress Notes * Bryant Ramírez MD - 07/24/2016 1201 EST No immunologic evidence for type 1 diabetes * Bryant Ramírez MD - 07/22/2016 1555 EST [place] results thus far show that she has normal lipids documented in this encounter Plan of Treatment Not on file documented as of this encounter Procedures Procedure Name Priority Date/Time Associated Diagnosis Comments URINE [id number] RATIO (ACR) Routine 07/22/2016 12:07 EST Type 2 diabetes mellitus with hyperglycemia, unspecified termite treater helper insulin use status (CMS-HCC) GLUTAMIC ACID DECARBOXYLASE ANTIBODY Routine 07/22/2016 12:07 EST Type 2 diabetes mellitus with hyperglycemia, unspecified jail insulin use status (CMS-HCC) TSH Routine 07/22/2016 12:07 EST Type 2 diabetes mellitus with hyperglycemia, unspecified termite treater helper insulin use status ([facility]) T4 FREE Routine 07/22/2016 12:07 EST Type 2 diabetes mellitus with hyperglycemia, unspecified jail insulin use status (CMS-HCC) LIPID PROFILE (INCLUDES CHOLESTEROL, TRIGLYCERIDES, HDL, LDL) Routine 07/22/2016 12:07 EST Type 2 diabetes mellitus with hyperglycemia, unspecified jail insulin use status ([facility]) COMPREHENSIVE METABOLIC PANEL (CMP) Routine 07/22/2016 12:07 EST Type 2 diabetes mellitus with hyperglycemia, unspecified jail insulin use status ([facility]) documented in this encounter Results * TSH (07/22/2016 12:07 EST) TSH 1.50 0.55 - 4.78 uIU/ml 07/22/2016 16:52 EST [facility] Blood specimen (specimen) BLOOD SPECIMEN / Unknown 07/22/2016 12:07 EST 07/22/2016 14:02 EST Bryant Ramírez MD CHEMISTRY & BLOOD GAS ORDERABLES Performing Organization Address City/[facility]/ZIP Co de Phone Number [facility] [address] [place] [address] * T4 FREE (07/22/2016 12:07 EST) Free T4 1.3 0.8 - 1.8 ng/dl 07/22/2016 16:52 [facility] Blood specimen (specimen) BLOOD SPECIMEN / Unknown 07/22/2016 12:07 EST 07/22/2016 14:02 EST Bryant Ramírez MD CHEMISTRY & BLOOD GAS ORDERABLES Performing Organization Address City/[facility] Co de Phone Number [facility] [address] [place] [address] * LIPID PROFILE (INCLUDES CHOLESTEROL, TRIGLYCERIDES, HDL, LDL) (07/22/2016 12:07 EST) Cholesterol 187 mg/dl 07/22/2016 14:38 [facility] Comment: Desirable:<200 Borderline High:200-239 High:>mf=729 Triglycerides 307 mg/dl 07/22/2016 14:38 [facility] Comment: Normal:<150 Borderline High:150-199 High:200-499 Very High:>gk=264 HDL 55 mg/dl 07/22/2016 14:38 [facility] Comment: Low:<40 Normal:40-60 Desirable: >60 LDL, Calculated 71 mg/dl 7 14:38 [facility] Comment: Optimal:<100 Near Optimal:100-129 Borderline High:130-159 High:160-189 Very High:>ex=058 Chol/HDL Ratio 3.4 07/22/2016 14:38 [facility] Fasting? No 07/22/2016 12:07 [facility] Non HDL Cholesterol 132 mg/dl 07/22/2016 14:38 [facility] Comment: Desirable:<130 Borderline:130-159 High: 160-189 Very High: >mp=956 Blood specimen (specimen) BLOOD SPECIMEN / Unknown 07/22/2016 12:07 EST 07/22/2016 14:02 EST Bryant Ramírez MD CHEMISTRY & BLOOD GAS ORDERABLES Performing Organization Address [facility] de Phone Number [facility] [address] [place] [address] * ALBUMIN, URINE (07/22/2016 12:07 EST) Creatinine, Urn [place] 77.2 mg/dl 07/23/2016 10:04 [facility] Ur Albumin mg/dl 1.0 mg/dl 07/23/2016 13:18 [facility] Ur Alb ug/mg Crea 13.0 ug/mg Crea 07/23/2016 13:18 [facility] Comment: Normal: <30 ug/mg creat High albuminuria: 30-300 ug/mg creat Very high albuminuria: >300 ug/mg creat Urine specimen (specimen) URINE / Unknown 07/22/2016 12:07 EST 07/22/2016 13:55 EST Bryant Ramírez MD CHEMISTRY & BLOOD GAS ORDERABLES Performing Organization Address [facility] Co de Phone Number [facility] [address] [place] [address] * (ABNORMAL) COMPREHENSIVE METABOLIC PANEL (CMP) (07/22/2016 12:07 EST) Potassium 4.5 3.5 - 5.0 mEq/L 07/22/2016 14:46 [facility] Sodium 141 136 - 145 mEq/L 07/22/2016 14:46 [facility] Chloride 101 96 - 110 mEq/L 07/22/2016 14:46 [facility] CO2 28 22 - 32 mEq/L 07/22/2016 14:46 [facility] Comment:Note new reference r tommy 03/03/16 Total Alkaline Phosphatase 65 38 - 126 U/L 07/22/2016 14:46 [facility] Bilirubin, Total <0.5 <1.4 mg/dl 07/23/19 17 14:46 [facility] AST 26 15 - 46 U/L 07/22/2016 14:46 [facility] ALT 45 <53 U/L 07/22/2016 14:46 [facility] Albumin 4.7 3.4 - 4.9 g/dl 07/22/2016 14:46 [facility] Total Protein 7.5 6.3 - 8.2 g/dl 07/22/2016 14:46 [facility] Creatinine 0.63 0.52 - 1.04 mg/dl 07/22/2016 14:46 [facility] GFR, Calculated 101 >60 ml/min/1.7 3m2 07/22/2016 14:46 [facility] Comment: eGFR calculated using CKD-EPI equation for non Americans. Multiply eGFR by 1.16 for Americans. BUN 12 10 - 26 mg/dl 07/22/2016 14:46 [facility] Calcium 10.3 8.5 - 10.5 mg/dl 07/22/2016 14:46 [facility] Calculated Calcium 9.7 8.5 - 10.5 mg/dl 07/22/2016 14:46 [facility] Comment: Note new formula for calculation in use 02/19/2016 Glucose, Serum 123(H) 70 - 100 mg/dl 07/22/2016 14:46 [facility] Fasting? No 07/22/2016 12:07 [facility] Blood specimen (specimen) BLOOD SPECIMEN / Unknown 07/22/2016 12:07 EST 07/22/2016 14:02 EST Bryant Ramírez MD CHEMISTRY & BLOOD GAS ORDERABLES [facility] [address] [place] [address] * GLUTAMIC ACID DECARBOXYLASE ANTIBODY (07/22/2016 12:07 EST) Glutamic Acid Decarboxylase Antibody Assay 0.00 <=0.02 nmol/L 07/24/2016 8:05 [facility] Comment: (Note) . ADDITIONAL INFORMATION This test was developed and its performance characteristics determined by [facility] in a manner consistent with CLIA requirements. This test has not been cleared or approved by the U.S. Food and Drug Administration. Performed or Referred by: [facility], [address] [place] [address], Lab Dir: Prasad Maurice II, M.D., Ph.D. Blood specimen (specimen) BLOOD SPECIMEN / Unknown 07/22/2016 12:07 EST 07/22/2016 14:02 EST Bryant Ramírez MD IMMUNOLOGY AND ESPINOZA ANAYA ORDERABLES [facility] [address] [place] [address] documented in this encounter Visit Diagnoses Diagnosis Type 2 diabetes mellitus with hyperglycemia, unspecified termite treater helper insulin use status- Primary documented in this encounter Care Teams Net Application Support Specialist Relationship Specialty Start Date End Date Kendall De La Fuente MD PCP - General 03/29/13 07/21/18 documented as of this encounter
--- OUTSIDE RECORDS SUMMARY | 2024-01-07 18:38 | XMS_ITS | Encounter Summary ---
Author Organization [facility] Address [address] [place] [address] Care Team Providers Care Front Facer Name Role Phone Helena Broussard MD Primary Care Provider Unav ailable Encounter Details Date Type Department Care Team (Latest Contact Info) Description 03/30/2013 6:37 EST - 03/30/2013 16:20 EST Hospital Encounter [facility] Cardiovascular Unit [address] [place] [address] Donaldo Gallegos MD [address] [place] [address] [place] [phone] SVT (supraventricular tachycardia) ([facility]) (Primary Dx); Palpitations Discharge Disposition: Home or Self Care Social History Tobacco Use Types Packs/Day Years Used Date Smoking Tobacco: Former Comments:smoked 2 years in [facility] sporadic Alcohol Use Standard Drinks/Week Comments Yes 0 (1 standard drink = 0.6 oz pur e alcohol) seldom Sex and Gender Information Value Date Recorded Sex Assigned at Not on file Gender Identity Female 07/03/2019 10:27 EST Sexual Orientation Not on file documented as of this encounter Last Filed Vital Signs Vital Sign Reading Time Taken Comments Blood Pressure 138/76 03/30/2013 1503 EST Pulse - - Temperature 35.9 ??C (96.6 ??F) 03/30/2013 1218 EST Respiratory Rate 20 03/30/2013 1503 EST Oxygen Saturation 100% 03/30/2013 1503 EST Inhaled Oxygen Concentration - - Weight 71.2 kg (157 lb) 03/30/2013702 EST Height 170.2 cm (5' 7) 03/30/2013 07 EST Body Mass Index 24.59 03/30/2013 07 EST documented in this encounter Discharge Instructions * Discharge Instructions* Beth Thomson RN - 03/30/2013 12:12 EST [facility] Discharge Instructions for Non Anesthesia Ablation Patients 1. Wound Care - You may remove the Band-Aids/Dressings from the sites the next morning - You may shower the next day - No tub bathing for five days, including hot tubs and pools 2. Call your physician or nurse if: - You develop drainage, redness, or swelling at any of the sites - You develop a fever - You develop increased tenderness and/or increased bruising over sites which doesn't resolve in 2 days - You develop a persistent and/or productive cough - Your symptoms reoccur 3. Activity: - You can resume your normal activities in one week, unless you have been instructed otherwise. - If you are traveling by car or airplane in the next week, you will need to stand and move around every 2 hours to promote circulation. - No vigorous activity for one week after your ablation. This includes running, squatting and heavylifting (>l0 lbs). - You may resume driving after 24 hours. - You may return to work after 5 days if your work demands are not physical. If your job entails strenuous activity, a two week waiting period is recommended. 4. Medications:- Resume prior medications unless otherwise instructed. For urgent problems call If you have any questions or concerns, please don't hesitate to call the [facility] [place] [phone], or dial direct and leave a message for Kathia Banks RN and she will return your call as soon as possible. documented in this encounter Medications at Time of Discharge Medication Sig Dispensed Refills Start Date End Date ascorbic acid (VITAMIN C) 500 mg tablet Take 500 mg by mouth as needed. aspirin chewable 81 mg tablet Take 81 mg by mouth daily. DILTiazem (CARDIZEM CD) 120 mg capsule Take 120 mg by mouth daily. Reported on 07/22/2016 ECHINACEA 1X ORAL Take by mouth as needed. Multivitamins with Minerals tablet Take 1 Tab by mouth daily. tocopheryl acetate (VITAMIN E) 100 unit capsule Take 400 Units by mouth daily. ZINC ACETATE ORAL Take by mouth as needed. metFORMIN (GLUCOPHAGE) 500 mg tablet Take 1,000 mg by mouth 2 times daily. 07/27/2019 simvastatin (ZOCOR) 40 mg tablet Take 40 mg by mouth daily. Reported on 07/22/2016 07/22/2016 documented as of this encounter Discharge Disposition Disposition Code Departure Means Destination Home or Self Care documented in this encounter Progress Notes * Beth Thomson RN - 03/30/2013 1228 EST At 1215 pt admitted to CVU per stretcher from EP lab status post SVT ablation. Bed in lowest position. Side rails up. Call shah within reach. Bj PO food & liquids. Daughter at bedside. 1225 Oxygen placed on pt at 2 liters. Pt sleepy. IV patent. Bilat. Groin dressings are CDI. 1240 Pt on bedpan 1250 Daughter her at the bedside. 1300 Complains of 5/10 pain in epigastric area. Pt given a tuna sandwich. 1315 1 Percocet given for pain 1330 Pt stated she feels nauseated. Ronnie pagekirti Gu to make aware. 1340 Ignacia Gu here to see pt and verbal order taken for Zofran and Tordol 15mg IV and given withsome small relief. 1420 Ronnie pagekirti Gu to see if he wanted an EKG post procedure 1440 12 lead EKG ordered. 1440 Dr. Gu here to see pt. 1440 Pt may leave at 1600. 1450 12 lead EKG done. 1500 Ortho VS done. Pt OOB to chair and Dr. Gallegos here to speak with pt. 1510 Pt instructed to stop her Cardiezem 1530 AVS reviewed with pt and with her daughter. Pt given a copy and signed copy is in the chart. 1600 Pt asking to go. * Beth Thomson RN - 03/30/2013 0700 EST Glendy Dixon arrived to the Cardiovascular Unit via foot. Patient greeted and identified per [facility] policy, Allergies, procedure verified & patient oriented to Unit. Reviewed all pre-procedure instructions with Glendy Dixon. Patient denies pain. Discussed history, med list, allergies, NPO, sedation,& procedure information. All questions answered & patient verbalizes understanding.Pre-EP ablation prep completed. Patient stretcher in low position with side rails up & call shah within patient reach. Patient's daughter is at bedside & post procedure local company tanker driver is her daughterHally. documented in this encounter H&P Notes * Donaldo Gallegos MD - 03/30/2013 0815 EST Cardiology Admitting H&P Admit Date: 03/30/2013 Date of Service: 03/30/2013 PCP: HELENA BROUSSARD MD Code Status: No Order Chief Complaint: SVT HPI: 53 y/o w/ intermittent palpitations. On CCB. Documented SVT. PMH PSH Past Medical History Diagnosis Date ??? SVT (supraventricular tachycardia) ??? Diabetes mellitus Past Surgical History Procedure Laterality Date ??? section Social History Family History History Substance Use Topics ??? Smoking status: Former Smoker ??? Smokeless tobacco: Not on file Comment: smoked 2 years in college sporadic ??? Alcohol Use: Yes seldom History reviewed. No pertinent family history. Medications Prescriptions prior to admission Medication Status Sig Dispense Refill ??? ascorbic acid (VITAMIN C) 500 mg tablet Active Take 500 mg by mouth daily. ??? aspirin chewable 81 mg tablet Active Take 81 mg by mouth daily. ??? DILTiazem (CARDIZEM CD) 120 mg capsule Active Take 120 mg by mouth daily. ??? ECHINACEA 1X ORAL Active Take by mouth. ??? metFORMIN (GLUCOPHAGE) 500 mg tablet Active Take 500 mg by mouth 2 times daily. ??? Multivitamins with Minerals tablet Active Take 1 Tab by mouth daily. ??? simvastatin (ZOCOR) 40 mg tablet Active Take 40 mg by mouth daily. ??? tocopheryl acetate (VITAMIN E) 100 unit capsule Active Take 400 Units by mouth daily. ??? ZINC ACETATE ORAL Active Take by mouth. No prescriptions prior to admission Allergies No Known Allergies Review of Systems: Pertinent items are noted in Subjective/HPI Objective/Physical Exam: VS: Patient Vitals for the past 8 hrs: BP Resp Temp SpO2 O2 Device 03/30/13 0703 157/84 mmHg 18 36.4 ??C (97.5 ??F) 99 % Room air Pain: Patient Vitals for the past 8 hrs: Numeric Pain Level (Scale 1-10) 03/30/13 0703 0 Weight: Weight : 71.215 kg (157 lb) Body mass index is 24.58 kg/(m^2). Glucose Readings (last 8 hours): Recent Labs 03/30/13 0717 GLUCOSEFINGE 205* Exam: General appearance: alert Lungs: clear to auscultation bilaterally Heart: regular rate and rhythm Abdomen: soft, non-tender; bowel sounds normal; no masses, no organomegaly Extremities: positive pulses bilat Data Review: NA Labs: I have personally reviewed CBC: Lab Results Component Value Date WBC 9.07 03/30/2013 RBC 5.03 03/30/2013 HGB 14.4 03/30/2013 HCT 42.2 03/30/2013 MCV 84 03/30/2013 MCH 28.5 03/30/2013 MCHC 34.0 03/30/2013 PLT 238 03/30/2013 BMP: Lab Results Component Value Date NA 141 03/30/2013 K 4.2 03/30/2013 CL 102 03/30/2013 CO2 25 03/30/2013 BUN 11 03/30/2013 CREATININE 0.52 03/30/2013 GLUCOSEFINGE 205* 03/30/2013 Coagulation: Lab Results Component Value Date PROTIME 11.8 03/30/2013 INR 1.0 03/30/2013 Cardiac markers: No results found for this basename: CKMBINDEX, TROPONINI Other Studies: N/A eGFR calculation: GFR, Calculated Date Value Range Status 03/30/2013 >60 >60 ml/min/1.73m2 Final Assessment: Symptomatic SVT. Failing Rx. Plan : EPS +/-ablation Matias Gu MD 03/30/2013 8:16 Attestation statement: I saw and examined the patient with the resident/fellow. I agree with the findings and plan of care documented in the resident's/fellow's note. documented in this encounter Procedure Notes * Donaldo Gallegos MD - 03/30/2013 1220 ESTProcedure(s): [id number] Pre-Procedure Diagnose(s): SVT (supraventricular tachycardia) (HCC-CMS) Post-Procedure Diagnose(s): AVNRT (AV jerri re-entry tachycardia) (HCC-CMS) Attending Lobel Fellow Gu SVT Proof of atypical AVNRT fast/slow (short antegrade AH, and long H-A mapped early retrograde A in CS) RF to slow pathway No SVT inducible at end of the case Attestation statement: Supervising Physician. I was present for the entire procedure. documented in this encounter Plan of Treatment Not on file documented as of this encounter Procedures Procedure Name Priority Date/Time Associated Diagnosis Comments ECG REPORT - SCANNED 04/05/2013 12:53 EST ECG REPORT - SCANNED 04/04/2013 9:07 EST INVASIVE CARDIOLOGY REPORT-SCANNED 04/04/2013 9:07 EST EKG 12-LEAD Routine 03/30/2013 14:51 EST GLUCOSE, GLUCOMETER Routine 03/30/2013 7 :17 EST PROTIME STAT 03/30/2013 7:10 EST COMPLETE BLOOD COUNT STAT 03/30/2013 7:10 EST BUN STAT 03/30/2013 7:10 EST CREATININE STAT 03/30/2013 7:10 EST ELECTROLYTES STAT 03/30/2013 7:10 EST documented in this encounter Results * ECG REPORT - SCANNED (04/05/2013 12:53 EST) 04/05/2013 12:5 3 EST Scan 2 Assembly Machine Tender PROCEDURE/MINOR MIRTA GICAL ORDERABLES * ECG REPORT - SCANNED (04/04/2013 9:07 EST) 04/04/2013 9:07 EST Scan 2 Assembly Machine Tender PROCEDURE/MINOR MIRTA GICAL ORDERABLES * INVASIVE CARDIOLOGY REPORT-SCANNED (04/04/2013 9:07 EST) 04/04/2013 9:07 EST Scan 2 Assembly Machine Tender PROCEDURE/MINOR MIRTA GICAL ORDERABLES * EKG 12-LEAD (03/30/2013 14:51 EST) 03/30/2013 14:5 1 EST Narrative [facility] EKG - 04/03/2013 15:02 EST ?[facility] ? Test Date: ?2013-03-30 Pat Name: ? GLENDY DIXON ?Department: ?? CVU ? Room: ? CVU04 Gender: ? F ?Special Education Supervisor: ?? [id number] : ?1960 ? Requested By: MATIAS GU MD Order Number: [id number] ? Reading : ?? RIANNA SMART MD ? Measurements Intervals ?[place] ? Rate: ? 75 ? P: ?50 IN: ? 123 ?QRS: ?43 QRSD: ? 92 ? T: ?37 QT: ? 419 ? QTc: ?448 ? Interpretive Statements SINUS RHYTHM Electronically Signed On 04-03-13 15:02:08 EST by RIANNA SMART MD Procedure Note Rianna Smart MD - 04/03/2013 [facility] Test Date: 2013-03-30 Pat Name: GLENDY DIXON Department: CVU Room: [facility] Gender: F Special Education Supervisor: [id number] : 1960 Requested By: MATIAS NELSON Order Number: [id number] Reading MD: RIANNA SMART MD Measurements Intervals [place] Rate: 75 P: 50 IN: 123 QRS: 43 QRSD: 92 T: 37 QT: 419 QTc: 448 Interpretive Statements SINUS RHYTHM Electronically Signed On 04-03-13 15:02:08 EST by RIANNA SMART MD Matias Gu MD CARDIAC ECG [facility] [facility] Performing Organization Address [facility] Co de Phone Number [facility] EKG * (ABNORMAL) GLUCOSE, GLUCOMETER (03/30/2013 7:17 EST) Glucose, Fingerstick 205(H) 70 - 100 mg/dl [facility] Customer Sales Distributor [place] [id number] [facility] Comment:Test Performed by [facility] 03/30/2013 7:17 EST 03/30/2013 7:18 EST Donaldo Gallegos MD CHEMISTRY & B LOOD GAS ORDERABLES Performing Organization Address [facility] de Phone Number [facility] [address] [place] [address] * PROTIME (03/30/2013 7:10 EST) Pro Time 11.8 9.5 - 13.1 secs [facility] I.N.R. 1.0 0.9 - 1.1 Ratio [facility] Comment: Moderate Intensity Coumadin INR = 2.0-3.0 Adjustments in anticoagulant therapy dose should be based upon the INR and NOT the Pro Time. Blood specimen (specimen) 03/30/2013 7:10 EST 03/30/2013 7:17 EST Donaldo Gallegos MD HEMATOLOGY & PF4 ORDERABLES Performing Organization Address [facility] de Phone Number [facility] [address] [place] [address] * (ABNORMAL) HEMAGRAM (03/30/2013 7:10 EST) WBC 9.07 4.0 - 12.4 K/cmm [facility] RBC 5.03 3.86 - 5.04 M/cmm [facility] Hemoglobin 14.4 11.6 - 15.2 gm/dl [facility] HCT 42.2 34.9 - 44.4 % [facility] MCV 84 81 - 98 fl [facility] MCH 28.5 26.7 - 33.3 pg [facility] MCHC 34.0 32.1 - 35.9 gm/dl [facility] PLT 238 141 - 320 K/cmm [facility] RDW-CV 14.8(H) 11.7 - 14.6 % [facility] Blood specimen (specimen) 03/30/2013 7:10 EST 03/30/2013 7:17 EST Donaldo Gallegos MD HEMATOLOGY & PF4 ORDERABLES Performing Organization Address [facility] Co de Phone Number [facility] [address] [place] [address] * CREATININE (03/30/2013 7:10 EST) Creatinine 0.52 0.52 - 1.04 mg/dl [facility] GFR, Calculated >60 >60 ml/min/1.7 3m2 [facility] Blood specimen (specimen) 03/30/2013 7:10 EST 03/30/2013 7:17 EST Donaldo Gallegos MD CHEMISTRY & B LOOD GAS ORDERABLES Performing Organization Address [facility] de Phone Number [facility] [address] [place] [address] * BUN (03/30/2013 7:10 EST) BUN 11 10 - 26 mg/dl [facility] Blood specimen (specimen) 03/30/2013 7:10 EST 03/30/2013 7:17 EST Donaldo Gallegos MD CHEMISTRY & B LOOD GAS ORDERABLES Performing Organization Address [facility] Co de Phone Number [facility] [address] [place] [address] * ELECTROLYTES (03/30/2013 7:10 EST) Sodium 141 136 - 145 mEq/L [facility] Potassium 4.2 3.5 - 5.0 mEq/L [facility] Chloride 102 96 - 110 mEq/L [facility] CO2 25 24 - 32 mEq/L [facility] Blood specimen (specimen) 03/30/2013 7:10 EST 03/30/2013 7:17 EST Donaldo Gallegos MD CHEMISTRY & B LOOD GAS ORDERABLES [facility] [address] [place] [address] documented in this encounter Visit Diagnoses Diagnosis SVT (supraventricular tachycardia) (HCC-CMS)- Primary Other specified cardiac dysrhythmias Palpitations Palpitations documented in this encounter Administered Medications Inactive Administered Medications - up to 3 most recent administrations Medication Order MAR Action Action Date Dose Rate Site ketOROLAC (TORADOL) injection 15 mg 15 mg, intravenous, NOW X1, 1 dose, On Leilani 03/30/13 at 1400, STAT Given 03/30/2013 13:46 EST 15 mg ondansetron (PF) (ZOFRAN) injection 4 mg 4 mg, intravenous, NOW X1, 1 dose, On Leilani 03/30/13 at 1400, STAT Given 03/30/2013 13:49 EST 4 mg oxyCODONE-acetaminophen (PERCOCET) 5-325 mg per tablet 1-2 Tab 1-2 Tablet, oral, EVERY 6 HOURS PRN, Starting on Leilani 03/30/13 at 1221, Until Leilani 03/30/13 at 1822, Pain, Routine, Postprocedure Given 03/30/2013 13:15 EST 1 Tablet promethazine (PHENERGAN) tablet 12.5 mg 12.5 mg, oral, EVERY 6 HOURS PRN, Starting on Leilani 03/30/13 at 1524, Until Leilani 03/30/13 at 1822, Nausea, Routine Given 03/30/2013 15:45 EST 12.5 mg sodium chloride 0.9 % (NS) infusion 30 mL/hr, intravenous, CONTINUOUS, Starting on Leilani 03/30/13 at 0715, Until Leilani 03/30/13 at 1822, Routine, Preprocedure New Bag 03/30/2013 13:51 EST 30 mL/hr 30 mL/hr Rate Documented 03/30/2013 12:23 EST 30 mL/hr 30 mL/hr New Bag 03/30/2013 7:18 EST 30 mL/hr 30 mL/hr documented in this encounter Historical Medications * This list may reflect changes made after this encounter. Medication Sig Dispensed Refills Start Date End Date tocopheryl acetate (VITAMIN E) 100 unit capsule Take 400 Units by mouth daily. ascorbic acid (VITAMIN C) 500 mg tablet Take 500 mg by mouth as needed. ZINC ACETATE ORAL Take by mouth as needed. ECHINACEA 1X ORAL Take by mouth as needed. Multivitamins with Minerals tablet Take 1 Tab by mouth daily. aspirin chewable 81 mg tablet Take 81 mg by mouth daily. DILTiazem (CARDIZEM CD) 120 mg capsule Take 120 mg by mouth daily. Reported on 07/22/2016 simvastatin (ZOCOR) 40 mg tablet Take 40 mg by mouth daily. Reported on 07/22/2016 07/22/2016 metFORMIN (GLUCOPHAGE) 500 mg tablet Take 1,000 mg by mouth 2 times daily. 07/27/2019 added in this encounter Active and Recently Administered Medications Times are shown in EST. Scheduled Medication Order 03/28/2013 03/29/2013 03/30/2013 ketOROLAC (TORADOL) injection 15 mg (COMPLETED) 15 mg, intravenous, NOW X1, 1 dose, On Leilani 03/30/13 at 1400, STAT 1346 (Given - Provid er: Beth Thomson RN) ondansetron (PF) (ZOFRAN) injection 4 mg (COMPLETED) 4 mg, intravenous, NOW X1, 1 dose, On Leilani 03/30/13 at 1400, STAT 1349 (Given - Provid er: Beth Thomson RN) Continuous Medication Order 03/28/2013 03/29/2013 03/30/2013 sodium chloride 0.9 % (NS) infusion (CANCELED) 30 mL/hr, intravenous, CONTINUOUS, Starting on Leilani 03/30/13 at 0715, Until Leilani 03/30/13 at 1822, Routine, Preprocedure 0718 (New Bag - Prov ider: Beth Thomson RN)1223 (Rate Documented - Provider: Beth Thomson RN - Comment: run pascual and hanging on arrival)1351 (New Bag - Provider: Beth Thomson RN) PRN Medication Order 03/28/2013 03/29/2013 03/30/2013 oxyCODONE-acetaminophen (PERCOCET) 5-325 mg per tablet 1-2 Tab (CANCELED) 1-2 Tablet, oral, EVERY 6 HOURS PRN, Starting on Leilani 03/30/13 at 1221, Until Leilani 03/30/13 at 1822, Pain, Routine, Postprocedure 1315 (Given - Provid er: Beth Thomson RN) promethazine (PHENERGAN) tablet 12.5 mg (CANCELED) 12.5 mg, oral, EVERY 6 HOURS PRN, Starting on Leilani 03/30/13 at 1524, Until Leilani 03/30/13 at 1822, Nausea, Routine 1545 (Given - Provid er: Beth Thomson RN) documented in this encounter Orders Medications Ordered That Enoc ht Not Have Been Administered Count Last Ordered Date First Ordered Date acetaminophen (TYLENOL) tablet 650 mg 1 acetaminophen-codeine (TYLEN OL #3) 300-30 mg per tablet 1-2 Tab 1 03/30/2013 fentaNYL citrate (PF) 50 mcg/mL injection 3 03/30/2013 heparin 1,000 unit/mL injection 1 3 isoproterenol (ISUPREL) 0.2 mg/mL injection 1 03/30/2013 lidocaine 10 mg/mL (1 %) injection 1 2012 midazolam (VERSED) 1 mg/mL injection 3 03/17 ondansetron (PF) (ZOFRAN) injection 8 mg 1 03/30/2013 Lab Orders Without Results Count Last Ordered D ate First Ordered Date POCT GLUCOSE 1 03/30/2013 Nursing Count Last Ordered Date First Orde red Date AMBULATE PATIENT 1 03/30/2013 BEDREST 1 03/30/2013 CARDIAC MONITORING 1 03/30/2013 INSERT PERIPHERAL IV 1 03/30/2013 PATIENT AT LOW RISK FOR VTE: RISK OF PHARMACOLOGIC PROPHYLAXIS OUTWEIG 1 03/30/2013 VITAL SIGNS 1 03/30/2013 Admission Count Last Ordered Date First Orde red Date STATUS: OUTPATIENT MEDICAL OP BED/SERVICES 1 03/30/2013 Transfer Count Last Ordered Date First Orde red Date NOTIFY PPS OF DISCHARGE COMPLETE 1 03/30/20 13 Discharge Count Last Ordered Date First Orde red Date DISCHARGE PATIENT 1 03/30/2013 documented in this encounter Care Teams Front Facer Relationship Specialty Start Date End Date Helena Broussard MD PCP - General 03/29/13 07/21/18 documented as of this encounter
--- OUTSIDE RECORDS SUMMARY | 2024-01-07 18:38 | XMS_ITS | Encounter Summary ---
Author Organization [facility] Address [address] [place] [address] Care Team Providers Care Annual Giving Director Name Role Phone Kendall De La Fuente MD Primary Care Provider Unav ailable Valerie Ochoa Primary Care Provider Encounter Details Date Type Department Care Team (Late st Contact Info) Description 08/19/2017 Historical Results Only [facility] Radiology Results [address] [place] [address] Beth Caba MD [address] [place] [address] [address] [place] [address] Social History Tobacco Use Types Packs/Day Years [...] Procedure Name Priority Date/Time Associated Diagnosis Comments FL C-ARM BLOCK/INJECTION 08/19/2017 10:05 EDT POCT GLUCOSE, INTERFACED Routine 08/19/2017 8:51 EDT documented in this encounter Results * FL C-ARM BLOCK/INJECTION (08/19/2017 10:05 EDT) Anatomical Region Laterality Modality Left Other 08/19/2017 10:0 5 EDT Narrative 08/19/2017 10:08 EDT ? EXAM: RADIOLOGY/C-ARM BLOCK INJECTION ? EX. D/ (0949) ? CLINICAL INFORMATION: ? CERVICAL/THORACIC FACETS/MEDIAL BRANCH ? C-ARM BLOCK INJECTION ? Signs and Symptoms/Comments: CONSULT/BLOCK,CERVICAL/THORACIC ? FACETS/MEDIAL BRAN CERVICAL/THORACIC FACETS/MEDIAL BRANCH ? Comparison: None ? Findings: ? Fluoroscopy services were provided during a procedure performed by ? Dr. Caba ? Fluoroscopy: 12 seconds of fluoroscopy time was used. ? Impression: ? As above. ? No charge. ? REPORT SIGNED IN OTHER VENDOR SYSTEM 08/19/2017 ?Reported By: Ruben Dominguez MD ? CC: ? Transcribed Date/Time: 08/19/2017 (1008) ? Calendar Control Clerk Blood Bank: ? Printed Date/Time: 11/03/2018 (1740) ? PAGE 1 ? Signed Report ? Procedure Note Ruben Dominguez MD - 03/22/2019 EXAM: RADIOLOGY/C-ARM BLOCK INJECTION EX. D/ (0949) CLINICAL INFORMATION: CERVICAL/THORACIC FACETS/MEDIAL BRANCH C-ARM BLOCK INJECTION Signs and Symptoms/Comments: CONSULT/BLOCK,CERVICAL/THORACIC FACETS/MEDIAL BRAN CERVICAL/THORACIC FACETS/MEDIAL BRANCH Comparison: None Findings: Fluoroscopy services were provided during a procedure performed by Dr. Caba Fluoroscopy: 12 seconds of fluoroscopy time was used. Impression: As above. No charge. REPORT SIGNED IN OTHER VENDOR SYSTEM 08/19/2017 Reported By: Ruben Dominguez MD CC: Transcribed Date/Time: 08/19/2017 (1008) Calendar Control Clerk Blood Bank: Printed Date/Time: 11/03/2018 (0587) PAGE 1 Signed Report Beth Caba MD IMG FLUOROSCOPY [place] * (ABNORMAL) POCT GLUCOSE (08/19/2017 8:51 EDT) Glucose, POC 160(H) 70 - 100 mg/dL 08/19/2017 8:55 EDT [facility] 08/19/2017 8:51 EDT 08/19/2017 8:55 EDT Beth Caba MD POINT OF CARE TEST O RDERABLES [facility] documented in this encounter Visit Diagnoses Not on filedocumented in this encounter Care Teams Annual Giving Director Relationship Specialty Start Date End Date Kendall De La Fuente MD PCP - General 03/29/13 07/21/18 Valerie Ochoa [address] [place] [address] PCP - General 07/22/18 documented as of this encounter
--- OUTSIDE RECORDS SUMMARY | 2024-01-07 18:38 | XMS_ITS | Encounter Summary ---
Author Organization [facility] Address [address] [place] [address] Care Team Providers Care Manufacturing Leader Name Role Phone Helena Broussard MD Primary Care Provider Unav ailable Encounter Details Date Type Department Care Team (Late st Contact Info) Description 07/13/2016 Results Only [facility] [phone] Shiva Joe MD Social History Tobacco Use [...] Diagnosis Comments PAP TEST- RESULT ONLY Routine 07/13/2016 0:00 EST documented in this encounter Results * PAP TEST- RESULT ONLY (07/13/2016 0:00 EST) Pathology Report: CYTOPATHOLOGY REPORT Reports generated via electronic interface contain original data; however they are lacking the format of the original report. Caution should be taken when reading/interpreti ng unformatted reports. Name: ? TOM DIXON ? Accession #: ? [id number] : ? 1960 (Age: 56) ??F ?Collect Date: ? 07/13/2016 Location: ? [facility] ? Receive Date: ? 07/14/2016 Provider: ?SHIVA JOE MD Copy to: ?HELENA BROUSSARD MD ? Specimen/Source: ?Pap Test, Cervix, ThinPrep Imaging System with manual evaluation Last Menstrual Period: ? Menstrual/Pregnanc y Status: ? Post Menopausal Treatment History: ? Yes: EMB/ECC 02/25 ? SPECIMEN ADEQUACY ? Satisfactory for Evaluation - transformation zone component present GENERAL CATEGORIZATION ? Negative for Intraepithelial Lesion or Malignancy ? Document reviewed and electronically signed by: ? CARLY Contreras(ASCP) ? Report Date: ??07/17/2016 11:05 End of Report [facility] 07/13/2016 07/14/2016 Shiva Joe MD PATHOLOGY ORDERABLES [facility] [address] [place] [address] documented in this encounter Visit Diagnoses Not on filedocumented in this encounter Care Teams Manufacturing Leader Relationship Specialty Start Date End Date Helena Broussard MD PCP - General 03/29/13 07/21/18 documented as of this encounter
--- OUTSIDE RECORDS SUMMARY | 2024-01-07 18:38 | XMS_ITS | Encounter Summary ---
Author Organization [facility] Address [address] [place] [address] Care Team Providers Care Green Marketing Analyst Name Role Phone Kendall De La Fuente MD Primary Care Provider Unav ailable Encounter Details Date Type Department Care Team (Late st Contact Info) Description 07/06/2016 Orders Only [facility] Endocrinology - [facility] [address] [place] [address] Bryant Ramríez MD [address] [facility] [address] [place] [address] Diabetes mellitus without complication ([facility]) (Primary Dx) Social History Tobacco Use Types [...] as of this encounter Plan of Treatment Scheduled Orders Name Type Priority Associated Diagnoses Orde r Schedule POCT HEMOGLOBIN A1C Point of Care Testing Routine Diabetes mellitus without complication (CMS-HCC) Expected: 07/22/2016 (Approximate), Expires: 07/06/2017 documented as of this encounter Visit Diagnoses Diagnosis Diabetes mellitus without complication ([facility]-CMS)- Primary Type II or unspecified type diabetes mellitus without mention of complication, not stated as uncontrolled documented in this encounter Care Teams Green Marketing Analyst Relationship Specialty Start Date End Date Kendall De La Fuente MD PCP - General 03/29/13 07/21/18 documented as of this encounter
--- OUTSIDE RECORDS SUMMARY | 2024-01-07 18:38 | XMS_ITS ---
Author Organization Unknown Address [address] [place] [address] [phone] Phone Care Team Providers Care Supervisor Steel Division Name Role Phone ELÍAS EMILY Sarina Attending Unavailable Social History Type Status Start Date End Date Code Code Syst em Smoking History Never smoker (Never Smoked) [id number] SNOMED CT Sex Female Hospital Discharge Instructions [...] de Code System No Known Allergies Active [id number] SNO MED-CT Plan of Treatment MM SCREEN BILAT 12/16/2023 MM SCREEN BILAT 07/02/2022 MM SCREEN BILAT 03/27/2021 Encounters Encounter Diagnosis Start Date Code Code Sys tem Screening for malignant neoplasm of colon 07/15/2023 [id number] SNOMED-CT Personal Care Team Section Performer Name Performer Role Active Date Inactive Da te
--- OUTSIDE RECORDS SUMMARY | 2024-01-07 18:38 | XMS_ITS | Referral Summary ---
Author Organization [facility] Address [address] [place] [address] Care Team Providers Care Lotus Notes Administrator Name Role Phone Valerie Ochoa Primary Care Provider [phone] Allergies No known active allergies Medications Medication [...] blood glucose meter (FREESTYLE FREEDOM LITE) by [facility] (non-drug; combo route) route once. Active blood glucose (FREESTYLE TEST) test strips [facility] (non-drug; combo route) route daily. Active sitaGLIPtin [...] Date Type 2 diabetes mellitus with hyperglycemia ([facility]) 07/22/2016 Palpitations 03/30/2013 Supraventricular tachycardia ([facility]) 3 Diabetes mellitus ([facility]) 02/01/2013 Social History Tobacco Use Types Packs/Day Years Used Date Smoking Tobacco: Former Smokeless Tobacco: Never Comments:smoked 2 years in [facility] sporadic Alcohol Use Standard Drinks/Week Comments Yes 0 (1 standard drink = 0.6 oz pur e alcohol) seldom Interpersonal Safety Answer Date Record ed Physically Hurt Never 12/17/2019 Verbally Threaten Not on file 12/17/2019 Sex and Gender Information Value Date Recorded Sex Assigned at Not on file Gender Identity Female 07/03/2019 10:27 EST Sexual Orientation Not on file Last Filed Vital Signs Vital Sign Reading [...] Body Mass Index 25.68 07/27/2019 1103 EDT Functional Status Functional Status Response Date of [...] concentrating, remembering, or making decisions? No 07/26/2017 Plan of Treatment Not on file Care Teams Lotus Notes Administrator Relationship Specialty Start Date End Date Valerie Ochoa [address] [place] [address] PCP - General 07/22/18
--- OUTSIDE RECORDS SUMMARY | 2024-01-07 18:38 | XMS_ITS | Encounter Summary ---
Author Organization [facility] Address [address] [place] [address] Care Team Providers Care Veneer Cutter Name Role Phone Kendall De La Fuente MD Primary Care Provider Unav ailable Reason for Visit * Reason Onset Date Comments Medication Management 08/06/2017 Encounter Details Date Type Department Care Team (Late st Contact Info) Description 08/06/2017 Telephone [facility] Endocrinology - [address] [address] Carlos Shell, store clerk cashier Management Social History Tobacco Use Types Packs/Day Years [...] at bedtime. 90 Cap 3 08/06/2017 07/27/2019 documented in this encounter Miscellaneous Notes * Telephone Encounter - Carlos Shell RN - 08/06/2017 1601 EDT Confirmed for pt that gabapentin 300 mg was intended to be taken once daily at bedtime only not 3 times daily as was prescribed. Updated medication list to show intended dosing. documented in this encounter Plan of Treatment Not on file documented as of this encounter Visit Diagnoses Not on filedocumented in this encounter Discontinued Medications Medication Sig Discontinue Reason Start Date End Da te gabapentin (NEURONTIN) 300 mg capsule Take 1 Cap by mouth 3 times daily. Order modification 07/26/2017 08/06/2017 documented as of this encounter Care Teams Veneer Cutter Relationship Specialty Start Date End Date Kendall De La Fuente MD PCP - General 03/29/13 07/21/18 documented as of this encounter
--- OUTSIDE RECORDS SUMMARY | 2024-01-07 18:38 | XMS_ITS | Encounter Summary ---
Author Organization [facility] Address [address] [place] [address] Care Team Providers Care Network Control Operators Supervisor Name Role Phone Kendall De La Fuente MD Primary Care Provider Unav ailable Reason for Visit * Reason Onset Date Comments Diabetes 07/31/2016 Follow-up 07/31/2016 Would like a reshma l back Encounter Details Date Type Department Care Team (Late st Contact Info) Description 07/31/2016 Telephone [facility] Endocrinology - [facility] [address] [place] [address] Bryant Ramírez MD [address] [place] [address] [address] [place] [address] Diabetes; Follow-up (Would like a call back) Social History Tobacco Use Types Packs/Day Years [...] encounter Miscellaneous Notes * Telephone Encounter - Kelli Madden, RN - 07/31/2016 1329 EDT Left message for Glendy relaying Dr. Ramosures review of her recent labs. Left office phone./CHRISTIANNE * Telephone Encounter - Kasey Virk - 07/31/2016 1246 EDT Patient would like a call back regarding her numbers * Telephone Encounter - Nancy Reis - 07/31/2016 1221 EDT Reason for Call: Diabetes Summary/Symptoms: Patient reporting 07/23-07/31/16 sugar levels. Will call back around 12:35PM or 1:30PM ([employer] phone time is limited) Nancy Reis 07/31/2016 12:21 documented in this encounter Plan of Treatment Not on file documented as of this encounter Visit Diagnoses Not on filedocumented in this encounter Care Teams Network Control Operators Supervisor Relationship Specialty Start Date End Date Kendall De La Fuente MD PCP - General 03/29/13 07/21/18 documented as of this encounter
--- OUTSIDE RECORDS SUMMARY | 2024-01-07 18:38 | XMS_ITS | Encounter Summary ---
Author Organization [facility] Address [address] [place] [address] Care Team Providers Care Surveying Or Spatial Science Technician Name Role Phone Helena Broussard MD Primary Care Provider Unav ailable Encounter Details Date Type Department Care Team (Late st Contact Info) Description 11/01/2014 Results Only [facility] [phone] Shiva Joe MD Social History Tobacco Use [...] Diagnosis Comments PAP TEST- RESULT ONLY Routine 11/01/2014 0:00 EDT documented in this encounter Results * PAP TEST- RESULT ONLY (11/01/2014 0:00 EDT) Pathology Report: CYTOPATHOLOGY REPORT Reports generated via electronic interface contain original data; however they are lacking the format of the original report. Caution should be taken when reading/interpreti ng unformatted reports. Name: ? TOM DIXON ? Accession #: ? [id number] : ? 1960 (Age: 54) ??F ?Collect Date: ? 11/01/2014 Location: ? [facility] ? Receive Date: ? 11/02/2014 Provider: ?SHIVA JOE MD Copy to: ?HELENA BROUSSARD MD ? Specimen/Source: ?Pap Test, Cervix/Endocervix, ThinPrep Imaging System with manual evaluation Last Menstrual Period: ? 04/29 Treatment History: ? Miscellaneous treatment: EMB/ECC 02/25 ? SPECIMEN ADEQUACY ? Satisfactory for Evaluation - transformation zone component present GENERAL CATEGORIZATION ? Negative for Intraepithelial Lesion or Malignancy ? Document reviewed and electronically signed by: ? CARLY Contreras(ASCP) ? Report Date: ??11/07/2014 14:06 End of Report [facility] 11/01/2014 11/02/2014 Shiva Joe MD PATHOLOGY ORDERABLES [facility] [address] [place] [address] documented in this encounter Visit Diagnoses Not on filedocumented in this encounter Care Teams Surveying Or Spatial Science Technician Relationship Specialty Start Date End Date Helena Broussard MD PCP - General 03/29/13 07/21/18 documented as of this encounter
--- OUTSIDE RECORDS SUMMARY | 2024-01-07 18:38 | XMS_ITS ---
Author Organization Unknown Address [address] [place] [address] [phone] Phone Care Team Providers Care Lithographic General Worker Name Role Phone BRAULIO Delarosa Attending Unavailable Results MM SCREENING BILAT MAMMO W T ANNEL W CAD* - Completed: 12/16/2023 11:20 LOINC: [facility] [place], [place] [address] RADIOLOGY BARLEY STEEPER REPORT Patient Name: TOM DIXON MRN: Sex: : Age: [id number] F 1960 63 Account: Accession: Admit: StayType: [id number] 12/16/2023 O Ordered: Order ID: Submitted: Ordering Provider: 12/16/2023 10:58 [id number] KT DANA RAMSEY Completed: Technologist: Resulted: 12/16/2023 11:12 BMM 12/20/2023 13:22 EXAMINATION: MM SCREENING BILAT MAMMO W VARGAS W CAD REASON FOR EXAM: Screening TECHNIQUE: [...] discrete masses, architectural distortion or significant asymmetry. IMPRESSION: No mammographic evidence of malignancy. Routine screening mammography is recommended. FINAL ASSESSMENT: BI-RADS Category 2: Benign * Regular screening mammograms starting at age 40 reduce the risk of from breast cancer. * Individuals should discuss the risks and benefits with their provider to determine their preferred breast cancer screening schedule, and at what age screening should stop. * Individuals should report any breast changes to a health care provider right away. * Some Individuals, because of their family history, a genetic tendency, or other factors, should consider being screened with annual breast MRI as well as with mammograms. * Screening mammography may not detect 10-15% of?breast cancers. Thank you for letting us participate in the care of this patient. If you are a health care provider and have any questions regarding this report, please contact the number below. For patients who have questions please contact the health ocular care technologist that requested your imaging first. Social History Type Status Start Date End Date Code Code Syst em Smoking History Never smoker (Never Smoked) [id number] SNOMED CT Sex Female Hospital Discharge Instructions [...] de Code System No Known Allergies Active [id number] SNO MED-CT Plan of Treatment MM SCREEN BILAT 12/16/2023 MM SCREEN BILAT 07/02/2022 MM SCREEN BILAT 03/27/2021 Encounters Encounter Diagnosis Start Date Code Code Sys tem Screening mammography 12/16/2023 [id number] SNOMED -CT Personal Care Team Section Performer Name Performer Role Active Date Inactive Da pancho
--- OUTSIDE RECORDS SUMMARY | 2024-01-07 18:38 | XMS_ITS | Encounter Summary ---
Author Organization [facility] Address [address] [place] [address] Care Team Providers Care Fuel Injection Servicer Name Role Phone Kendall De La Fuente MD Primary Care Provider Unav Valerie Grider Primary Care Provider [phone] Reason for Visit * Reason Onset Date Comments Follow-up 08/20/2017 Had Injection ye sterday Encounter Details Date Type Department Care Team (Late st Contact Info) Description 08/20/2017 Telephone [facility] Endocrinology - [facility] [address] [place] [address] Bryant Ramírez MD [address] [facility] [address] [place] [address] Follow-up (Had Injection yesterday) Social History Tobacco Use Types Packs/Day Years [...] Telephone Encounter - Carlos Shell RN - 08/23/2017 1627 EDT Spoke with pt and she states sugars have been fine, no spike since injections. Pt states she is keeping a log and will call in if she notices them trending upwards. * Telephone Encounter - Manuel Cantor DO - 08/23/2017 0739 EDT Do we have updated blood sugars. I can advise today if I can see her numbers * Telephone Encounter - Kasey Virk - 08/20/2017 1328 EDT Reason for Call: Follow-up (Had Injection yesterday) Summary/Symptoms: Patient had a neck Injection yesterday for Pain and steroids (Deponedrol 40mg) and one of the side effects is spiking of Blood sugar. She just wanted to report to dr Ramírez and would like a call back. She would like to know to do if that happens Kasey Virk 08/20/2017 13:28 documented in this encounter Plan of Treatment Not on file documented as of this encounter Visit Diagnoses Not on filedocumented in this encounter Care Teams Fuel Injection Servicer Relationship Specialty Start Date End Date Kendall De La Fuente MD PCP - General 03/29/13 07/21/18 Valerie Ochoa [address] [place] [address] PCP - General 07/22/18 documented as of this encounter
--- OUTSIDE RECORDS SUMMARY | 2024-01-07 18:38 | XMS_ITS | Encounter Summary ---
Author Organization [facility] Address [address] [place] [address] Care Team Providers Care Systems Applications Programming Lead Name Role Phone Kendall De La Fuente MD Primary Care Provider Unav daleable Valerie Ochoa Primary Care Provider [phone] Encounter Details Date Type Department Care Team (Late st Contact Info) Description 02/01/2018 Historical Results Only [facility] Radiology Results [address] [place] [address] Maia Pendleton MD [address] [place] [address] Social History Tobacco Use Types Packs/Day Years [...] Name Priority Date/Time Associated Diagnosis Comments US EXTREMITY 02/01/2018 19:58 EDT D-DIMER Routine 02/01/2018 17:50 EDT documented in this encounter Results * US EXTREMITY (02/01/2018 19:58 EDT) Anatomical Region Laterality Modality Other 02/01/2018 19:5 8 EDT Narrative 02/01/2018 19:58 EDT ? EXAM: ULTRASOUND/DOPPLER VEIN EXTREMITY R EX. D/ (1915) ? CLINICAL INFORMATION: ? PRL - Pain right lower extr. ? EXAM: ? US Duplex Right Lower Extremity Veins ? CLINICAL HISTORY: ? 58 years old, female; Pain; Leg, lower; Right; Additional ? info: Prl - pain right lower extr. ? TECHNIQUE: ? Real-time duplex ultrasound scan of the right lower extremity ? veins integrating B-mode two-dimensional vascular structure, ? Doppler spectral analysis, color flow Doppler imaging and ? compression. ? COMPARISON: ? No relevant prior studies available. ? FINDINGS: ? Deep veins: ??Unremarkable. ??No DVT in the visualized common ? femoral, femoral, proximal deep femoral or popliteal veins. ??The ? veins demonstrate normal color flow, are normally compressible, ? with normal phasic flow and/or augmentation response. ? Superficial veins: ??Unremarkable. ??No thrombus in the ? visualized great saphenous vein. ? Soft tissues: ??No acute findings. ??No popliteal cyst. ? IMPRESSION: ? Normal right lower extremity duplex venous ultrasound. ? REPORT SIGNED IN OTHER VENDOR SYSTEM 02/01/2018 ?Reported By: Nii Souza MD ? CC: ? Transcribed Date/Time: 02/01/2018 (1957) ? Tank Builder Supervisor: ? Printed Date/Time: 11/05/2018 (2260) ? PAGE 1 ? Signed Report ? Procedure Note Nii Souza A - 03/23/2019 EXAM: ULTRASOUND/DOPPLER VEIN EXTREMITY R EX. D/ (191) CLINICAL INFORMATION: PRL - Pain right lower extr. EXAM: US Duplex Right Lower Extremity Veins CLINICAL HISTORY: 58 years old, female; Pain; Leg, lower; Right; Additional info: Prl - pain right lower extr. TECHNIQUE: Real-time duplex ultrasound scan of the right lower extremity veins integrating B-mode two-dimensional vascular structure, Doppler spectral analysis, color flow Doppler imaging and compression. COMPARISON: No relevant prior studies available. FINDINGS: Deep veins: Unremarkable. No DVT in the visualized common femoral, femoral, proximal deep femoral or popliteal veins. The veins demonstrate normal color flow, are normally compressible, with normal phasic flow and/or augmentation response. Superficial veins: Unremarkable. No thrombus in the visualized great saphenous vein. Soft tissues: No acute findings. No popliteal cyst. IMPRESSION: Normal right lower extremity duplex venous ultrasound. REPORT SIGNED IN OTHER VENDOR SYSTEM 02/01/2018 Reported By: Nii Souza MD CC: Transcribed Date/Time: 02/01/2018 (1957) Tank Builder Supervisor: Printed Date/Time: 11/05/2018 (7711) PAGE 1 Signed Report Maia Pendleton MD IMG US ORDERABLES * (ABNORMAL) D-DIMER (02/01/2018 17:50 EDT) D-Dimer 0.60(HH) mg/L FEU 02/01/2018 19:02 EDT [facility] Comment: Result called to REJI MANTILLA IN ED 02/01/181901 Result called by TANNER <0.5 mg/L = Negative DVT/PE Negative Predictive Value Cutoff*: <0.50 mg/L (FEU) *Intended for use in conjunction with a non-high pre-test probability (PTP) assessment to aid in exclusion of DVT/PE. Reference Range for Normal Health Subjects; <0.59 mg/L (FEU) 02/01/2018 17:5 0 EDT 02/01/2018 17:51 EDT Narrative [facility] - 02/01/2018 19:02 EDT COMMENTS: HOLD PT UNTIL RESULTED, SEND TO ER IF NOT WITHIN ?NORMAL LIMITS Does PT Have a Latex Allergy? NO Trupti Chao DEVELOPMENT TEAM LEAD HEMATOLOGY & PF4 ORDERABLES [facility] documented in this encounter Visit Diagnoses Not on filedocumented in this encounter Care Teams Systems Applications Programming Lead Relationship Specialty Start Date End Date Kendall De La Fuente MD PCP - General 03/29/13 07/21/18 Valerie Ochoa [address] [place] [address] PCP - General 07/22/18 documented as of this encounter
--- OUTSIDE RECORDS SUMMARY | 2024-01-07 18:38 | XMS_ITS | Encounter Summary ---
Author Organization [facility] Address [address] [place] [address] Care Team Providers Care Butcher Name Role Phone Kendall De La Fuente MD Primary Care Provider Unav ailable Reason for Visit * Reason Onset Date Comments Follow-up 07/31/2016 Encounter Details Date Type Department Care Team (Late st Contact Info) Description 07/31/2016 Telephone [facility] Endocrinology - [address] [address] Kelli Madden, RN Follow-up Social History Tobacco Use Types Packs/Day Years [...] Telephone Encounter - Kelli Madden, RN - 08/03/2016 1551 EDT Left detailed phone message for Glendy relaying Dr. Ramosures recommendation t remain on current dosage./CHRISTIANNE * Telephone Encounter - Kelli Madden RN - 07/31/2016 1331 EDT Date Fasting Lunch Dinner HS Other 07/23 141 07/24 154 148 07/25 146 154 (2 hrs after meals) 07/26 112 203 07/27 103 210 /14 125 118 07/29 114 207 16 131 108 07/31 102 Presently taking Lantus 14Units. documented in this encounter Plan of Treatment Not on file documented as of this encounter Visit Diagnoses Not on filedocumented in this encounter Care Teams Butcher Relationship Specialty Start Date End Date Kendall De La Fuente MD PCP - General 03/29/13 07/21/18 documented as of this encounter
--- OUTSIDE RECORDS SUMMARY | 2024-01-07 18:38 | XMS_ITS | Encounter Summary ---
Author Organization [facility] Address [address] [place] [address] Care Team Providers Care Instrumentation And Controls Technician Name Role Phone Valerie Ochoa Primary Care Provider [phone] Encounter Details Date Type Department Care Team (Late st Contact Info) Description 07/06/2019 Results Only [facility] Radiology Results [address] [place] [address] Valerie Ochoa [address] [place], [place] [address] Social History Tobacco Use Types Packs/Day Years Used Date Smoking Tobacco: Former Smokeless Tobacco: Never Comments:smoked 2 years in [facility] sporadic Alcohol Use Standard Drinks/Week [...] Name Priority Date/Time Associated Diagnosis Comments US VEIN MAP - GSV (BILAT) 07/10/2019 16:01 EST documented in this encounter Results * US VEIN MAP - GSV (BILAT) (07/10/2019 16:01 EST) Anatomical Region Laterality Modality Other 07/06/2019 14:2 5 EST Narrative 07/10/2019 16:01 EST ? EXAM: ULTRASOUND/DOPPLER VEIN EXT.NIKOLAI-VEI EX. D/ (1425) ? CLINICAL INFORMATION: ? I83.90 VARICOSE VEINS, BILATERAL LOWER EXTRMEITY ? See attached report. ??Report also available in PACS. ? [email or web address] ?Reported By: Rom Ho MD ? CC: ? Transcribed Date/Time: 07/10/2019 (1601) ? Commissary Clerk: MEEK ? Printed Date/Time: 07/10/2019 (1602) ? PAGE 1 ? Signed Report ? Procedure Note Rom Ho MD - 07/10/2019 EXAM: ULTRASOUND/DOPPLER VEIN EXT.NIKOLAI-VEI EX. 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 Report also available in PACS. [email or web address] Reported By: Rom Ho MD CC: Transcribed Date/Time: 07/10/2019 (0217) Commissary Clerk: MEEK Printed Date/Time: 07/10/2019 (9471) PAGE 1 Signed Report Valerie TESFAYE US ORDERABLES documented in this encounter Visit Diagnoses Not on filedocumented in this encounter Care Teams Instrumentation And Controls Technician Relationship Specialty Start Date End Date Valerie Ochoa [address] [place] [address] PCP - General 07/22/18 documented as of this encounter
--- OUTSIDE RECORDS SUMMARY | 2024-01-07 18:38 | XMS_ITS | Encounter Summary ---
Author Organization [facility] Address [address] [place] [address] Care Team Providers Care Meter/Relay Technician Name Role Phone Kendall De La Fuente MD Primary Care Provider Unav ailable Encounter Details Date Type Department Care Team (Latest Contact Info) Description 05/28/2017 12:31 EST - 05/28/2017 23:59 EST Hospital Encounter [facility] [address] [place] [address] Unknown, Provider, Discharge Disposition: Home or Self Care Social History Tobacco Use Types Packs/Day Years Used Date Smoking Tobacco: Former Smokeless Tobacco: Never Comments:smoked 2 years in [facility] sporadic Alcohol Use Standard Drinks/Week Comments [...] Code Departure Means Destination Home or Self [facility] documented in this encounter Plan of Treatment Not on file documented as of this encounter Visit Diagnoses Not on filedocumented in this encounter Care Teams Meter/Relay Technician Relationship Specialty Start Date End Date Kendall De La Fuente MD PCP - General 03/29/13 07/21/18 documented as of this encounter
--- OUTSIDE RECORDS SUMMARY | 2024-01-07 18:38 | XMS_ITS | Encounter Summary ---
Author Organization [facility] Address [address] [place] [address] Care Team Providers Care Trimmer Tailer Name Role Phone Kendall De La Fuente MD Primary Care Provider Unav ailable Valerie Ochoa Primary Care Provider [phone] Encounter Details Date Type Department Care Team (Late st Contact Info) Description 02/18/2017 Historical Results Only [facility] Radiology Results [address] [place] [address] Maia Degroot, LAZARUS [address] [place] [address] [place] [address] Social History Tobacco Use Types Packs/Day [...] Procedure Name Priority Date/Time Associated Diagnosis Comments XR CERVICAL SPINE 6 OR MORE VIEWS 02/18/2017 16:53 EDT documented in this encounter Results * XR CERVICAL SPINE 6 OR MORE VIEWS (02/18/2017 16:53 EDT) Anatomical Region Laterality Modality Other 02/18/2017 16:5 3 EDT Narrative 02/18/2017 16:56 EDT ? EXAM: RADIOLOGY/CERVICAL SPINE + FLEX ?? E EX. D/ (1607) ? CLINICAL INFORMATION: ? M54.2 NECK PAIN ? CERVICAL SPINE + FLEX ?? EXT ? Signs and Symptoms/Comments: M54.2 NECK PAIN ? Comparison: None ? FINDINGS: ? Cervical Spine: Upright AP, lateral, flexion and extension views were ? performed. No significant spondylolisthesis is present. There is no ? evidence of significant dynamic instability on flexion or extension. ? No acute fracture is identified. Mild multilevel degenerative disc ? disease and facet arthrosis are present. There is possible partial ? fusion of the C5-C6 facets. The paraspinal soft tissues are ? unremarkable. ? IMPRESSION: ? 1. ??Mild multilevel cervical degenerative changes. ? 2. ??No significant spondylolisthesis or evidence of dynamic ? instability on flexion or extension. ? REPORT SIGNED IN OTHER VENDOR SYSTEM 02/18/2017 ?Reported By: Oziel Tsang MD ? CC: ? Transcribed Date/Time: 02/18/2017 (1656) ? Milk Collector: ? Printed Date/Time: 11/01/2018 (5381) ? PAGE 1 ? Signed Report ? Procedure Note Oziel Tsang MD - 03/22/2019 EXAM: RADIOLOGY/CERVICAL SPINE + FLEX E EX. D/ (1607) CLINICAL INFORMATION: M54.2 NECK PAIN CERVICAL SPINE + FLEX EXT Signs and Symptoms/Comments: M54.2 NECK PAIN Comparison: None FINDINGS: Cervical Spine: Upright AP, lateral, flexion and extension viewswere performed. No significant spondylolisthesis is present. There is no evidence of significant dynamic instability on flexion orextension. No acute fracture is identified. Mild multilevel degenerative disc disease and facet arthrosis are present. There is possible partial fusion of the C5-C6 facets. The paraspinal soft tissues are unremarkable. IMPRESSION: 1. Mild multilevel cervical degenerative changes. 2. No significant spondylolisthesis or evidence of dynamic instability on flexion or extension. REPORT SIGNED IN OTHER VENDOR SYSTEM 02/18/2017 Reported By: Oziel Tsang MD CC: Transcribed Date/Time: 02/18/2017 (165) Milk Collector: Printed Date/Time: 11/01/2018 (2290) PAGE 1 Signed Report Maia Degroot SUPERVISOR FELLING BUCKING IMG DIAGNOSTIC IMAGI NG ORDERABLES documented in this encounter Visit Diagnoses Not on filedocumented in this encounter Care Teams Trimmer Tailer Relationship Specialty Start Date End Date Kendall De La Fuente MD PCP - General 03/29/13 07/21/18 Valerie Ochoa [address] [place] [address] PCP - General 07/22/18 documented as of this encounter
--- OUTSIDE RECORDS SUMMARY | 2024-01-07 18:38 | XMS_ITS | Encounter Summary ---
Author Organization [facility] Address [address] [place] [address] Care Team Providers Care English As A Second Language Instructor Name Role Phone Kendall De La Fuente MD Primary Care Provider Unav ailable Encounter Details Date Type Department Care Team (Latest Contact Info) Description 02/01/2018 14:24 EDT - 02/01/2018 23:59 EDT Hospital Encounter [address] [address] Unknown, Provider, Discharge Disposition: Home or Self Care Social History Tobacco Use Types Packs/Day Years Used Date Smoking Tobacco: Former Smokeless Tobacco: Never Comments:smoked 2 years in [facility] sporadic Alcohol Use Standard Drinks/Week Comments [...] Code Departure Means Destination Home or Self [facility] documented in this encounter Plan of Treatment Not on file documented as of this encounter Visit Diagnoses Not on filedocumented in this encounter Care Teams English As A Second Language Instructor Relationship Specialty Start Date End Date Kendall De La Fuente MD PCP - General 03/29/13 07/21/18 documented as of this encounter
--- OUTSIDE RECORDS SUMMARY | 2024-01-07 18:39 | XMS_ITS | Encounter Summary ---
Author Organization [facility] Address [address] [place] [address] Care Team Providers Care Grease Buffer Name Role Phone Unavailable Primary Care Provider Unavailabl e Encounter Details Date Type Department Care Team (Late st Contact Info) Description 09/04/2008 Orders Only [facility] Laboratory Services - [facility] ([facility] [address] [place] [address] [phone] Shiva Joe MD Social History Tobacco Use [...] Procedure Name Priority Date/Time Associated Diagnosis Comments CYTOPATHOLOGY Routine 09/04/2008 0:00 EDT documented in this encounter Results * CYTOPATHOLOGY (09/04/2008 0:00 EDT) Pathology Report: CYTOPATHOLOGY REPORT ? Reports generated via electronic interface contain original data; ? however they are lacking the format of the original report. ? Caution should be taken when reading/interpreti ng unformatted reports. ? Name: ? TOM DIXON ? Accession #: ? [id number] ? : ? 1960 (Age: 48) ??F ?Collect Date: ? 09/04/2008 ? Location: ? [facility] ? Receive Date: ? 09/05/2008 ? Provider: ?SHIVA JOE MD ? Copy to: ? Specimen/Source: ?Pap Test, Cervix/Endocervix, ThinPrep Imaging System ? with manual evaluation ? Last Menstrual Period: ? 04/09/09 ? Other: ? HPVA - HPV testing requested if ASC-US on the current ThinPrep Pap test. ? SPECIMEN ADEQUACY ? Satisfactory for Evaluation ? - transformation zone component present ? GENERAL CATEGORIZATION ? Negative for Intraepithelial Lesion or Malignancy ? Document reviewed and electronically signed by: ? Praveen umler, CT(ASCP) ? Report Date: ??09/07/2008 10:52 ? End of Report ? [facility] 09/04/2008 09/05/2008 Shiva Joe MD PATHOLOGY ORDERABLES Performing Organization Address City/State/[facility] Co de Phone Number [facility] [address] [place] [address] documented in this encounter Visit Diagnoses Not on filedocumented in this encounter
--- OUTSIDE RECORDS SUMMARY | 2024-01-07 18:39 | XMS_ITS | Encounter Summary ---
Author Organization [facility] Address [address] [place] [address] Care Team Providers Care Oxygen Therapy Technician Name Role Phone Unknown, Provider Primary Care Provider [phone] Encounter Details Date Type Department Care Team (Late st Contact Info) Description 03/15/2012 Results Only [facility] Laboratory Services - [facility] ([address] [phone] Shiva Joe MD Social History Tobacco Use [...] Diagnosis Comments PAP TEST- RESULT ONLY Routine 03/15/2012 0:00 EDT documented in this encounter Results * PAP TEST- RESULT ONLY (03/15/2012 0:00 EDT) Pathology Report: CYTOPATHOLOGY REPORT Reports generated via electronic interface contain original data; however they are lacking the format of the original report. Caution should be taken when reading/interpreti ng unformatted reports. Name: ? TOM DIXON ? Accession #: ? [id number] : ? 1960 (Age: 52) ??F ?Collect Date: ? 03/15/2012 Location: ? [facility] ? Receive Date: ? 03/16/2012 Provider: ?SHIVA JOE MD Copy to: ? Specimen/Source: ?Pap Test, Cervix/Endocervix, ThinPrep Imaging System with manual evaluation Last Menstrual Period: ? 03/08/12 ? SPECIMEN ADEQUACY ? Satisfactory for Evaluation - transformation zone component present GENERAL CATEGORIZATION ? Other, see interpretation INTERPRETATION ? Reactive cellular changes associated with inflammation present (includes repair). Endometrial cells present in a woman equal to or greater than age 40. Negative for Intraepithelial Lesion. EDUCATIONAL NOTES/RECOMMENDATI ONS ? Benign appearing endometrial cells on Pap tests are usually a normal finding in women with regular menstrual cycles, especially if the Pap test was collected during the first half of the menstrual cycle. There is data showing that endometrial cells on Pap tests may be associated with endometrial/uterin e abnormalities in post menopausal women or in perimenopausal women with abnormal bleeding. There is limited data on the significance of benign endometrial cells in post menopausal women on HRT. ??Clinical correlation is recommended. Note: ??The Pap test is not an accurate test for the screening of endometrial lesions and should not be used as a follow up in patients with clinical suspicion of endometrial pathology. ? Document reviewed and electronically signed by: ? GWYN COUCH MD ? Report Date: ??03/23/2012 15:07 End of Report [facility] 03/15/2012 03/16/2012 Shiva Joe MD PATHOLOGY ORDERABLES Performing Organization Address City/State/[facility] Co de Phone Number [facility] [address] [place] [address] documented in this encounter Visit Diagnoses Not on filedocumented in this encounter Care Teams Oxygen Therapy Technician Relationship Specialty Start Date End Date Unknown, Provider, PCP - General 03/15/12 03/28/13 documented as of this encounter
--- OUTSIDE RECORDS SUMMARY | 2024-01-07 18:39 | XMS_ITS | Encounter Summary ---
Author Organization [facility] Address [address] [place] [address] Care Team Providers Care Singe Winder Name Role Phone Unavailable Primary Care Provider Unavailabl e Encounter Details Date Type Department Care Team (Latest Contact Info) Description 02/24/2001 9:24 EDT - 02/24/2001 11:59 EDT Hospital Encounter [facility] - Other [address] [place] [address] Shiva Joe MD Unknown, Provider, Discharge Disposition: Auto Discharge Social History Tobacco Use Types Packs/Day Years Used Date Smoking Tobacco: Never Assessed Sex and Gender Information Value Date Recorded Sex Assigned at Not on file Gender Identity Female 07/03/2019 10:27 EST Sexual Orientation Not on file documented as of this encounter Discharge Disposition Disposition Code Departure Means Destination Auto Discharge documented in this encounter Plan of Treatment Not on file documented as of this encounter Procedures Procedure Name Priority Date/Time Associated Diagnosis Comments CYTOPATHOLOGY Routine 02/24/2001 0:00 EDT documented in this encounter Results * CYTOPATHOLOGY (02/24/2001 0:00 EDT) Pathology Report: CYTOPATHOLOGY REPORT Reports generated via electronic interface contain original data; however they are lacking the format of the original report. Caution should be taken when reading/interpreti ng unformatted reports. Name: ? TOM DIXON ? Accession #: ? [id number] : ? 1960 (Age: 41) ??F ?Collect Date: ? 02/24/2001 Location: ? [facility] ? Receive Date: ? 02/28/2001 Provider: ?SHIVA JOE MD Copy to: ? Specimen/Source: ?ThinPrep Pap Test, Cervix/Endocervix Last Menstrual Period: ? SPECIMEN ADEQUACY ? Satisfactory for evaluation. GENERAL CATEGORIZATION ? Within Normal Limits ? Document reviewed and electronically signed by: ? Meghan Medellin, ??SCT(ASCP) ? Report Date: ??03/01/2001 08:24 End of Report [facility] A[facility]AMS 02/24/2001 02/28/2001 Shiva Joe MD PATHOLOGY ORDERABLES [facility] [address] [place] [address] documented in this encounter Visit Diagnoses Not on filedocumented in this encounter
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
--- OUTSIDE RECORDS SUMMARY | 2024-01-07 18:39 | XMS_ITS | Encounter Summary ---
Author Organization [facility] Address [address] [place] [address] Care Team Providers Care Processing Engineer Name Role Phone Unavailable Primary Care Provider Unavailabl e Encounter Details Date Type Department Care Team (Late st Contact Info) Description 10/29/2006 Results Only [facility] [address] [place] [address] Shiva Joe MD Social History Tobacco Use [...] Priority Date/Time Associated Diagnosis Comments CYTOPATHOLOGY Routine 10/29/2006 0:00 EDT documented in this encounter Results * CYTOPATHOLOGY (10/29/2006 0:00 EDT) Pathology Report: CYTOPATHOLOGY REPORT Reports generated via electronic interface contain original data; however they are lacking the format of the original report. Caution should be taken when reading/interpreti ng unformatted reports. Name: ? TOM DIXON ? Accession #: ? [id number] : ? 1960 (Age: 46) ??F ?Collect Date: ? 10/29/2006 Location: ? [facility] ? Receive Date: ? 11/01/2006 Provider: ?SHIVA JOE MD Copy to: ? Specimen/Source: ?ThinPrep Pap Test, Cervix/Endocervix, processed on TO[facility]IA ThinPrep Imaging System, with manual evaluation Last Menstrual Period: ? 10/09/06 Other: ? HPVA - HPV testing requested if ASC-US on the current ThinPrep Pap test. ? SPECIMEN ADEQUACY ? Satisfactory for Evaluation - transformation zone component present GENERAL CATEGORIZATION ? Negative for Intraepithelial Lesion or Malignancy ? Document reviewed and electronically signed by: ? CURTIS August(ASCP) ? Report Date: ??11/05/2006 14:22 End of Report BHARTI ABRAMS 10/29/2006 11/01/2006 Shiva Joe MD PATHOLOGY ORDERABLES Performing Organization Address City/State/[facility] Co de Phone Number BHARTI ABRAMS [address] [place] [address] documented in this encounter Visit Diagnoses Not on filedocumented in this encounter
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
--- OUTSIDE RECORDS SUMMARY | 2024-01-07 18:39 | XMS_ITS | Encounter Summary ---
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 Name Role Phone Unavailable Primary Care Provider Unavailabl e Encounter Details Date Type Department Care Team (Late st Contact Info) Description 06/04/2003 10:35 EST Hospital Encounter [facility] - Other [address] [place] [address] Shiva Joe MD Social History Tobacco Use [...] Priority Date/Time Associated Diagnosis Comments CYTOPATHOLOGY Routine 06/04/2003 0:00 EST documented in this encounter Results * CYTOPATHOLOGY (06/04/2003 0:00 EST) Pathology Report: CYTOPATHOLOGY REPORT Reports generated via electronic interface contain original data; however they are lacking the format of the original report. Caution should be taken when reading/interpreti ng unformatted reports. Name: ? TOM DIXON ? Accession #: ? [id number] : ? 1960 (Age: 43) ??F ?Collect Date: ? 06/04/2003 Location: ? [facility] ? Receive Date: ? 06/05/2003 Provider: ?SHIVA JOE MD Copy to: ? Specimen/Source: ?ThinPrep Pap Test, Cervix/Endocervix Last Menstrual Period: ? 05/11/03 Other: ? HPVA - HPV testing requested if ASC-US on the current ThinPrep Pap test. ? SPECIMEN ADEQUACY ? Satisfactory for Evaluation - transformation zone component present GENERAL CATEGORIZATION ? Negative for Intraepithelial Lesion or Malignancy ? Document reviewed and electronically signed by: ? CURTIS August(ASCP) ? Report Date: ??06/08/2003 15:14 End of Report BHARTI ABRAMS 06/04/2003 06/05/2003 Shiva Joe MD PATHOLOGY ORDERABLES [facility] [address] [place] [address] documented in this encounter Visit Diagnoses Not on filedocumented in this encounter
--- OUTSIDE RECORDS SUMMARY | 2024-01-07 18:39 | XMS_ITS | Encounter Summary ---
Author Organization [facility] Address [address] [place] [address] Care Team Providers Care Chamber Walker Name Role Phone Unknown, Provider Primary Care Provider [phone] Reason for Referral * Cardiology (Routine/Next Available) - Closed Specialty Diagnoses / Procedures Referred By Contac t Referred To Contact Diagnoses SVT (supraventricular tachycardia) ([facility]) Palpitation Procedures CARDIAC ABLATION PROCEDURE Jun Alcantara MD Referral ID Status Reason Start Date Expiration Date Visits Re quested Visits Authorized [id number] Closed 02/01/2013 1 1 Encounter Details Date Type Department Care Team (Late st Contact Info) Description 02/01/2013 Orders Only [facility] Cardiology - [address] [place] [address] Jun Alcantara MD SVT (supraventricular tachycardia) ([facility]) (Primary Dx); Palpitation Social History Tobacco Use Types Packs/Day Years Used Date Smoking Tobacco: Never Assessed Sex and Gender Information Value Date Recorded Sex Assigned at Not on file Gender Identity Female 07/03/2019 10:27 EST Sexual Orientation Not on file documented as of this encounter Plan of Treatment Not on file documented as of this encounter Procedures Procedure Name Priority Date/Time Associated Diagnosis Comments CARDIAC ABLATION PROCEDURE Routine 03/30/2013 12:10 EST SVT (supraventricular tachycardia) ([facility]) Palpitation documented in this encounter Results * CARDIAC ABLATION PROCEDURE (03/30/2013 12:10 EST) Anatomical Region Laterality Modality Other 03/30/2013 12:1 0 EST Narrative 05/01/2013 6:48 EST *Cardiology* [address] [place] [address] Electrophysiology Study with Ablation (Report amended ) Patient: Glendy Lechuga ? Study Date: ?03/30/2013 ? Accession #: ? [id number] : ? 1960 Referring: Unknown, Doctor Attending: Donaldo Gallegos MD Fellow: ?Matias Lopes MD Assisting: Copies: SUMMARY OF PROCEDURE: - Inducible atypical AVNRT. - Successful slow pathway ablation. - At the conclusion of the procedure the patient was in sinus rhythm. - There were no complications. ?Procedure Synopsis: ??SVT at the beginning of the case ??Proof of atypical AVNRT fast/slow (short antegrade AH, and long H-A mapped ??early retrograde A in CS) ??RF to slow pathway ??No SVT inducible at end of the case PROCEDURE INDICATION: Based on findings of EP study an ablation was indicated for AVNRT. ANESTHESIA: Conscious sedation and local anesthesia. PROCEDURE: The risks, benefits, and alternatives to the procedure were explained and informed consent was obtained. The patient name, date of , surgical site, and procedure were verified prior to the procedure. The patient was brought to electrophysiology laboratory in the fasting state. The groin was prepped and draped in the usual sterile manner. ??Local anesthestic was administered to the access site. The right femoral vein and left femoral vein were entered under fluoroscopic guidance with the modified Seldinger technique. Sheath and catheter detail(s) in table below.All catheters were placed under fluoroscopic guidance. The attending physician was physically present for the entire Electrophysiology Study and/or Ablation procedure. VASCULAR ACCESS AND CATHETER PROPERTIES: + +------+ + + Entry site ? Sheath Locations ? Catheter ? + +------+ + + L femoral vein 7Fr ?? RA appendage ?? 6 Fr hexapolar electrode catheter (2 mm ? spacing; proximal ring 25 cm from tip) ?? + +------+ + + L femoral vein 7Fr ?? RV/Para-Hisian 7 Fr deflectable quadrapolar electrode ? catheter (2mm spacing) ? + +------+ + + L femoral vein 7Fr ?? His ? 7 Fr deflectable octapolar electrode ? catheter (2 mm spacing) ? + +------+ + + R femoral vein 7Fr ?? Coronary sinus Fr deflectable electrode catheter 20 ? electrodes (1mm-3mm-1mm spacing) ? + +------+ + + R femoral vein 8Fr ?? Ablation ? 3.5 mm tip Thermocool Celsius: 7 Fr ? deflectable quadrapolar ablation ? electrode (2 mm-5mm-2mm) ? + +------+ + + EP STUDY: A comprehensive electrophysiology study with attempted induction was performed. Protocols included decremental pacing and programmed stimulation. Pacing and recording were carried out from the left atrial, right atrial, right ventricular, coronary sinus, and His bundle sites . AV JERRI/HIS-PURKINJE CONDUCTION INTERVALS: + + + + + State ? Baseline ?? Initial, provocation Post-ablation ? + + + + + Rhythm ? Sinus ? SVT ? + + + + + Cycle length ? 620msec ?? 281msec ? + + + + + A-V 1:1 ? 330ms ? + + + + + V-A 1:1 ? 420ms ? Intermittent retrograde ? conduction ? + + + + + V-A conduction ? Concentric ? + + + + + Dual AV jerri pathways Yes ? + + + + + ERP antegrade ? 320msec ? 310msec ? + + + + + AV jerri echoes ? Yes ? + + + + + Pre-excitation ? No ? + + + + + Pacing from the coronary sinus did not reveal pre-excitation. Para-Hisian pacing showed retrograde conduction to be entirely over the AV node. Description of induced arrythmia: Arrhythmia induction: ??Attempts at induction were successful at inducing Tachycardia. ??Atrial activation was concentric. Mapping: Mapping of the tachycardia circuit was performed. His-synchronous PVCs were introduced during tachycardia. The PVCs advanced the timing of ventricular activation. This did not change the tachycardia cycle length or timing of atrial activation. Progressively earlier PVCs advanced the retrograde His potential. Atrial timing was advanced without change in activation sequence indicating slow-fast/slow-slow AVNRT. Entrainment was performend from the RV basal septum. Retrograde atrial activation was only advanced after retrograde His-bundle activation was advanced by ventricular pacing. Earliest retrograde A mapped to CS os. Based on these findings, the mechanism of SVT was atypical fast-slow/slow-slow AVNRT. We elected to perform slow pathway ablation. ABLATION PROCEDURE: A 4mm tip Celsius ablation catheter was inserted and positioned at the inferior aspect of the tricuspid annulus, near the ostium of the coronary sinus. 3D anatomical mapping guided the catheter location. Radiofrequency ablation was applied while the catheter was withdrawn from the tricuspid annulus to the ostium of the CS. The catheter was then advanced into the CS along the annular aspect midway between the roof and the floor. The temperature was limited to 60degreesC. The power was limited to 35W. Frequent junctional extrasystoles were noted. Repeat testing of AV node function was performed after infusing isoproterenol at 0.5 mcg/min. There was no 1:1 slow pathway conduction. There was no retrograde conduction. The patient was monitored for 30minutes after ablation. Tachycardia was non-inducible. At this point the patient was in sinus rhythm and the procedure was therefore concluded. Hemostasis. All sheaths and catheters were removed from the body. Compression was applied to the puncture sites. Groin sites were intact with no hematoma. ?? STUDY COMPLETION - Estimated blood loss: 30ml. Clinical Trial: ??The patient is not enrolled in a clinical trial. At the completion of the procedure, findings, results, any complications, and treatment plan were communicated to the patient and reinforced after recovery from anesthesia. With the patient's consent, the attending physician communicated findings, results, any complications, and treatment plan to family members and patient support persons who were present at the conclusion of the procedure. ?Electronically signed by Donaldo Gallegos MD 05/01/2013 06:48 Procedure Note 05/01/2013 *Cardiology* [address] [place] [address] Electrophysiology Study with Ablation (Report amended ) Patient: Glendy Lechuga Study Date:03/30/2013 : 1960 Referring: Unknown, Doctor Attending: Donaldo Gallegos MD Fellow: Matias Lopes MD Assisting: Copies: SUMMARY OF PROCEDURE: - Inducible atypical AVNRT. - Successful slow pathway ablation. - At the conclusion of the procedure the patient was in sinus rhythm. - There were no complications. Procedure Synopsis: SVT at the beginning of the case Proof of atypical AVNRT fast/slow (short antegrade AH, and long H-Amapped early retrograde A in CS) RF to slow pathway No SVT inducible at end of the case PROCEDURE INDICATION: Based on findings of EP study an ablation was indicated for AVNRT. ANESTHESIA: Conscious sedation and local anesthesia. PROCEDURE: The risks, benefits, and alternatives to the procedure were explained and informed consent was obtained. The patient name, date of , surgical site, and procedure wereverified prior to the procedure. The patient was brought to electrophysiologylaboratory in the fasting state. The groin was prepped and draped in the usualsterile manner. Local anesthestic was administered to the access site. The right femoral vein and left femoral vein were entered under fluoroscopicguidance with the modified Seldinger technique. Sheath and catheter detail(s) in table below.All catheters were placed under fluoroscopic guidance. The attending physician was physically present for the entire Electrophysiology Studyand/or Ablation procedure. VASCULAR ACCESS AND CATHETER PROPERTIES: + +------+ + + Entry site Sheath Locations Catheter + +------+ + + L femoral vein 7Fr RA appendage 6 Fr hexapolar electrode catheter (2mm spacing; proximal ring 25 cm fromtip) + +------+ + + L femoral vein 7Fr RV/Para-Hisian 7 Fr deflectable quadrapolarelectrode catheter (2mm spacing) + +------+ + + L femoral vein 7Fr His 7 Fr deflectable octapolar electrode catheter (2 mm spacing) + +------+ + + R femoral vein 7Fr Coronary sinus Fr deflectable electrode catheter 20 electrodes (1mm-3mm-1mm spacing) + +------+ + + R femoral vein 8Fr Ablation 3.5 mm tip Thermocool Celsius: 7 Fr deflectable quadrapolar ablation electrode (2 mm-5mm-2mm) + +------+ + + EP STUDY: A comprehensive electrophysiology study with attempted induction wasperformed. Protocols included decremental pacing and programmed stimulation. Pacingand recording were carried out from the left atrial, right atrial, right ventricular, coronary sinus, and His bundle sites . AV JERRI/HIS-PURKINJE CONDUCTION INTERVALS: + + + + + State Baseline Initial, provocation Post-ablation + + + + + Rhythm Sinus SVT + + + + + Cycle length 620msec 281msec + + + + + A-V 1:1 330ms + + + + + V-A 1:1 420ms Intermittentretrograde conduction + + + + + V-A conduction Concentric + + + + + Dual AV jerri pathways Yes + + + + + ERP antegrade 320msec 310msec + + + + + AV jerri echoes Yes + + + + + Pre-excitation No + + + + + Pacing from the coronary sinus did not reveal pre-excitation. Para-Hisian pacing showed retrograde conduction to be entirely over the AVnode. Description of induced arrythmia: Arrhythmia induction: Attempts at induction were successful at inducing Tachycardia. Atrial activation was concentric. Mapping: Mapping of the tachycardia circuit was performed. His-synchronous PVCswere introduced during tachycardia. The PVCs advanced the timing of ventricular activation. This did not change the tachycardia cycle length or timing ofatrial activation. Progressively earlier PVCs advanced the retrograde Hispotential. Atrial timing was advanced without change in activation sequenceindicating slow-fast/slow-slow AVNRT. Entrainment was performend from the RV basalseptum. Retrograde atrial activation was only advanced after retrograde His-bundle activation was advanced by ventricular pacing. Earliest retrograde Amapped to CS os. Based on these findings, the mechanism of SVT was atypical fast-slow/slow-slow AVNRT. We elected to perform slow pathway ablation. ABLATION PROCEDURE: A 4mm tip Celsius ablation catheter was inserted and positioned at theinferior aspect of the tricuspid annulus, near the ostium of the coronary sinus. 3D anatomical mapping guided the catheter location. Radiofrequency ablationwas applied while the catheter was withdrawn from the tricuspid annulus to the ostium of the CS. The catheter was then advanced into the CS along theannular aspect midway between the roof and the floor. The temperature was limitedto 60degreesC. The power was limited to 35W. Frequent junctionalextrasystoles were noted. Repeat testing of AV node function was performed after infusing isoproterenol at 0.5 mcg/min. There was no 1:1 slow pathway conduction.There was no retrograde conduction. The patient was monitored for 30minutesafter ablation. Tachycardia was non-inducible. At this point the patient was insinus rhythm and the procedure was therefore concluded. Hemostasis. All sheaths and catheters were removed from the body.Compression was applied to the puncture sites. Groin sites were intact with nohematoma. STUDY COMPLETION - Estimated blood loss: 30ml. Clinical Trial: The patient is not enrolled in a clinical trial. At the completion of the procedure, findings, results, any complications,and treatment plan were communicated to the patient and reinforced afterrecovery from anesthesia. With the patient's consent, the attending physician communicated findings, results, any complications, and treatment plan tofamily members and patient support persons who were present at the conclusion ofthe procedure. Electronically signed by Donaldo Gallegos MD 05/01/2013 06:48 Jun Alcantara MD CARDIAC EP ORDERAB LES documented in this encounter Visit Diagnoses Diagnosis SVT (supraventricular tachycardia) ([facility] Primary Other specified cardiac dysrhythmias Palpitation Palpitations documented in this encounter Care Teams Chamber Walker Relationship Specialty Start Date End Date Unknown, Provider, PCP - General 03/15/12 03/28/13 documented as of this encounter
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
--- OUTSIDE RECORDS SUMMARY | 2024-01-07 18:39 | XMS_ITS | Encounter Summary ---
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 Phone Unavailable Primary Care Provider Unavailabl e Encounter Details Date Type Department Care Team (Late st Contact Info) Description 03/23/2005 Results Only [facility] [address] [place] [address] Shiva Joe MD Social History Tobacco Use [...] Priority Date/Time Associated Diagnosis Comments CYTOPATHOLOGY Routine 03/23/2005 0:00 EST documented in this encounter Results * CYTOPATHOLOGY (03/23/2005 0:00 EST) Pathology Report: CYTOPATHOLOGY REPORT Reports generated via electronic interface contain original data; however they are lacking the format of the original report. Caution should be taken when reading/interpreti ng unformatted reports. Name: ? TOM DIXON ? Accession #: ? [id number] : ? 1960 (Age: 45) ??F ?Collect Date: ? 03/23/2005 Location: ? [facility] ? Receive Date: ? 03/24/2005 Provider: ?SHIVA JOE MD Copy to: ? Specimen/Source: ?ThinPrep Pap Test, Cervix/Endocervix, processed on [employer] ThinPrep Imaging System, with manual evaluation Last Menstrual Period: ? 03/03/05 Other: ? HPVA - HPV testing requested if ASC-US on the current ThinPrep Pap test. ? SPECIMEN ADEQUACY ? Satisfactory for Evaluation - transformation zone component present GENERAL CATEGORIZATION ? Negative for Intraepithelial Lesion or Malignancy ? Document reviewed and electronically signed by: ? Krishan Brian, CARLY(ASCP) ? Report Date: ??03/31/2005 08:25 End of Report BHARTI ABRAMS 03/23/2005 03/24/2005 Shiva Joe MD PATHOLOGY ORDERABLES Performing Organization Address City/State/[facility] Co de Phone Number BHARTI ABRAMS [address] [place] [address] documented in this encounter Visit Diagnoses Not on filedocumented in this encounter
--- OUTSIDE RECORDS SUMMARY | 2024-01-07 18:39 | XMS_ITS | Encounter Summary ---
Author Organization [facility] Address [address] [place] [address] Care Team Providers Care Engine Oiler Name Role Phone Unavailable Primary Care Provider Unavailabl e Encounter Details Date Type Department Care Team (Late st Contact Info) Description 09/09/2010 Results Only [facility] - [facility] ([facility] [address] [place] [id number] Shiva Thomson MD Social History Tobacco Use Types Packs/Day [...] Diagnosis Comments PAP TEST- RESULT ONLY Routine 09/09/2010 0:00 EDT documented in this encounter Results * PAP TEST- RESULT ONLY (09/09/2010 0:00 EDT) Pathology Report: CYTOPATHOLOGY REPORT ? Reports generated via electronic interface contain original data; ? however they are lacking the format of the original report. ? Caution should be taken when reading/interpreti ng unformatted reports. ? Name: ? TOM DIXON ? Accession #: ? [id number] ? : ? 1960 (Age: 50) ??F ?Collect Date: ? 09/09/2010 ? Location: ? [facility] ? Receive Date: ? 09/11/2010 ? Provider: ?SHIVA THOMSON MD ? Copy to: ?HELENA N BROUSSARD MD ? Specimen/Source: ?Pap Test, Cervix/Endocervix, ThinPrep Imaging System ? with manual evaluation ? Last Menstrual Period: ? 08/30/2010 ? SPECIMEN ADEQUACY ? Satisfactory for Evaluation ? - transformation zone component present ? GENERAL CATEGORIZATION ? Negative for Intraepithelial Lesion or Malignancy ? Document reviewed and electronically signed by: ? Charley Caldera, [place](ASCP) ? Report Date: ??09/15/2010 13:39 ? End of Report ? BHARTI ABRAMS 09/09/2010 09/11/2010 Shiva J Alix MD PATHOLOGY ORDERABLES Performing Organization Address City/State/[facility] Co de Phone Number [facility] [address] [place] [address] documented in this encounter Visit Diagnoses Not on filedocumented in this encounter
[2024-01-07 21:12] LABS: HCT 37.7 % (36.0-46.0); HGB 11.9 g/dL (11.2-15.7); MCH 25.1 pg (27.0-33.0); MCHC 31.6 % (32.0-36.0); MCV 79 fL (80-95); MPV 9.7 fL (8.0-11.0); Platelet Count 284 10^3/uL (130-400); RBC 4.75 10^6/uL (3.93-5.22); RDW 15.3 % (11.7-14.6); RDW-SD 43.9 fL; WBC 8.94 10^3/uL (4.4-10.8)
[2024-01-07 21:19] LABS: Anion Gap 8.1 mmol/L (3-11); BUN 12 mg/dL (7-18); CO2 25.9 mmol/L (21.0-32.0); CREATININE 0.8 mg/dL (0.55-1.02); Calcium 9.3 mg/dL (8.5-10.1); Chloride 103 mmol/L (98-107); Estimated GFR 83.26 (mL/min/1.73m2); Glucose 264 mg/dL (74-106); Potassium 4.3 mmol/L (3.5-5.1); Sodium 137 mmol/L (136-145)
[2024-01-07 21:50] LABS: Hemoglobin A1C 7.6 % (<5.7)
== END 2024-01-07 18:35 | disposition home or self-care (01) ==
LOC: NCHCN 18:34
PROVIDERS: PCP Internal Medicine; Visit Provider Internal Medicine
DX: E83.52 Hypercalcemia (principal); E11.9 Type 2 diabetes mellitus without complications
CPT/HCPCS: 80048; 85027; 83036

== ENCOUNTER 2024-01-12 21:41 | Outpatient (REF) | payer BC, SELFPAY ==
[2024-01-12 21:29] LABS: Iron 39 ug/dL (50-170); Total Iron Binding Capacity 427 ug/dL (250-450); Transferrin Sat 9 % (15-50)
[2024-01-12 21:53] LABS: Ferritin 8 ng/mL (8-252)
== END 2024-01-12 21:42 | disposition home or self-care (01) ==
LOC: NCHCN 21:41
PROVIDERS: PCP Internal Medicine; Visit Provider Internal Medicine
DX: R71.8 Other abnormality of red blood cells (principal)
CPT/HCPCS: 82728; 83540; 83550

== ENCOUNTER 2024-04-10 15:42 | Outpatient (REF) | payer BC, SELFPAY ==
[2024-04-10 21:35] LABS: HCT 43.3 % (36.0-46.0); HGB 13.7 g/dL (11.2-15.7); MCH 25.9 pg (27.0-33.0); MCHC 31.6 % (32.0-36.0); MCV 82 fL (80-95); MPV 9.7 fL (8.0-11.0); Platelet Count 278 10^3/uL (130-400); RBC 5.29 10^6/uL (3.93-5.22); RDW 15.3 % (11.7-14.6); WBC 10.11 10^3/uL (4.4-10.8)
[2024-04-10 21:45] LABS: Anion Gap 9.9 mmol/L (3-11); BUN 12 mg/dL (7-18); CO2 27.1 mmol/L (21.0-32.0); CREATININE 0.8 mg/dL (0.55-1.02); Calcium 9.5 mg/dL (8.5-10.1); Chloride 103 mmol/L (98-107); Estimated GFR 82.74 (mL/min/1.73m2); Glucose 133 mg/dL (74-106); Sodium 140 mmol/L (136-145)
[2024-04-10 21:46] LABS: Iron 61 ug/dL (50-170); Total Iron Binding Capacity 406 ug/dL (250-450); Transferrin Sat 15 % (15-50)
[2024-04-10 21:54] LABS: Hemoglobin A1C 6.5 % (<5.7)
[2024-04-10 21:58] LABS: Ferritin 10 ng/mL (8-252)
== END 2024-04-10 15:43 | disposition home or self-care (01) ==
LOC: NCHCN 15:42
PROVIDERS: PCP Internal Medicine; Visit Provider Internal Medicine
DX: E11.9 Type 2 diabetes mellitus without complications (principal); E83.52 Hypercalcemia; E61.1 Iron deficiency
CPT/HCPCS: 80048; 85027; 82728; 83036; 83540; 83550

== ENCOUNTER 2024-04-18 17:16 | Outpatient (REF) | payer BC, SELFPAY ==
[2024-04-18 22:07] LABS: COMMENT (LAB VIEW ONLY) 167.59 mg/dL; Microalb ug/mg Crea 3.2 ug/mg Cr
== END 2024-04-18 17:17 | disposition home or self-care (01) ==
LOC: NCHCN 17:16
PROVIDERS: PCP Internal Medicine; Visit Provider Internal Medicine
DX: M79.605 Pain in left leg (principal)
CPT/HCPCS: 82043; 82570

== ENCOUNTER 2024-07-10 08:50 | Outpatient (REF) | payer BC, SELFPAY ==
[2024-07-10 15:15] LABS: HGB 13.1 g/dL (11.2-15.7); MCH 27.3 pg (27.0-33.0); MCV 85 fL (80-95); MPV 9.3 fL (8.0-11.0); Platelet Count 260 10^3/uL (130-400); RDW 13.6 % (11.7-14.6); RDW-SD 42.7 fL; WBC 7.27 10^3/uL (4.4-10.8)
[2024-07-10 15:30] LABS: Iron 37 ug/dL (50-170); Total Iron Binding Capacity 323 ug/dL (250-450); Transferrin Sat 11 % (15-50)
[2024-07-10 15:43] LABS: Calculated LDL 45 mg/dL (<100); Cholesterol 132 mg/dL (<200); Ferritin 16 ng/mL (8-252); HDL Cholesterol 54 mg/dL (40-60); Triglyceride 166 mg/dL (<150)
[2024-07-10 16:28] LABS: Hemoglobin A1C 6.5 % (<5.7)
== END 2024-07-10 08:51 | disposition home or self-care (01) ==
LOC: NCHCN 08:50
PROVIDERS: PCP Internal Medicine; Visit Provider Internal Medicine
DX: R71.8 Other abnormality of red blood cells (principal); E11.9 Type 2 diabetes mellitus without complications; E78.5 Hyperlipidemia, unspecified
CPT/HCPCS: 80061; 85027; 82728; 83036; 83540; 83550

== ENCOUNTER 2025-02-15 14:35 | Outpatient (REF) | payer BC, SELFPAY ==
[2025-02-15 20:39] LABS: HCT 40.7 % (36.0-46.0); HGB 13.2 g/dL (11.2-15.7); MCH 27.8 pg (27.0-33.0); MCHC 32.4 % (32.0-36.0); MCV 86 fL (80-95); MPV 9.4 fL (8.0-11.0); Platelet Count 283 10^3/uL (130-400); RBC 4.75 10^6/uL (3.93-5.22); RDW 12.7 % (11.7-14.6); RDW-SD 39.7 fL; WBC 9.86 10^3/uL (4.4-10.8)
[2025-02-15 20:51] LABS: Iron 55 ug/dL (50-170); Total Iron Binding Capacity 360 ug/dL (250-450)
[2025-02-15 20:54] LABS: Hemoglobin A1C 6.5 % (<5.7)
[2025-02-15 21:04] LABS: Ferritin 24 ng/mL (8-252)
== END 2025-02-15 14:36 | disposition home or self-care (01) ==
LOC: NCHCN 14:35
PROVIDERS: PCP Internal Medicine; Visit Provider Internal Medicine
DX: E11.9 Type 2 diabetes mellitus without complications (principal); D50.9 Iron deficiency anemia, unspecified
CPT/HCPCS: 85027; 82728; 83036; 83540; 83550